=== PATIENT | male | born 1960 | race Caucasian/White ===

== ENCOUNTER → 2016-10-30 | Outpatient (REF) | payer OTHER ==
[~2016-10-30] MED LIST: ABIL5TAB5 PO; ASPI1TAB PO; HUMA100I5 SC; INSULADS SC; LISI10TA4 PO; METF1000 PO; TYLE325T5 PO
[2016-10-30 11:44] LABS: ALBUMIN 3.9 GM/DL (3.2-5.2); ALBUMIN/GLOBULIN RATIO 1.39 (1.00-1.93); ALKALINE PHOSPHATASE 59 U/L (45-117); ALT/SGPT 38 U/L (12-78); ANION GAP 9 MEQ/L (8-16); AST/SGOT 16 U/L (15-37); BILIRUBIN,TOTAL 0.8 MG/DL (0.2-1.0); BLOOD UREA NITROGEN 13 MG/DL (7-18); CALCIUM LEVEL 8.4 MG/DL (8.5-10.1); CARBON DIOXIDE LEVEL 31 MEQ/L (21-32); CHLORIDE LEVEL 103 MEQ/L (98-107); CHOLESTEROL LEVEL 101 MG/DL (<200); CREATININE FOR GFR 0.95 MG/DL (0.70-1.30); GLOMERULAR FILTRATION RATE > 60.0 (>56); GLUCOSE, FASTING 110 MG/DL (70-105); SODIUM LEVEL 143 MEQ/L (136-145); TOTAL PROTEIN 6.7 GM/DL (6.4-8.2); TRIGLYCERIDES LEVEL 104 MG/DL (<150)
== END ==
LOC: M SFHCPLAZ 08:00
PROVIDERS: ATTEND Nurse Practitioner Family
DX: E11.65 Type 2 diabetes mellitus with hyperglycemia (principal); E55.9 Vitamin D deficiency, unspecified

== ENCOUNTER → 2016-11-24 | Outpatient (REF) | payer OTHER | END | disposition home or self-care (01) | LOC: M SFHCPLAZ 09:32 | PROVIDERS: ATTEND Nurse Practitioner Family | DX: Z11.59 Encounter for screening for other viral diseases (principal) ==

== ENCOUNTER → 2017-02-27 | Outpatient (CLI) | payer OTHER ==
--- NOTE | 2017-02-27 10:13 | REP ---
Clinical: Pain. Technique: AP, lateral, bilateral oblique and sunrise views of the left knee. Findings: Moderate tricompartmental osteoarthritic degenerative changes are appreciated including cortical irregularities, early spurring, joint space narrowing, increased sclerosis to the tibial plateau. Congenital bipartite patella noted. No acute fracture or dislocation. No obvious effusion. Impression: Moderate tricompartmental osteoarthritic degenerative changes. Signed by Boogie Lance MD 02/27/2017 10:04 A
== END ==
LOC: M RAD 09:25
PROVIDERS: ATTEND Physician Assistant
DX: M17.12 Unilateral primary osteoarthritis, left knee (principal)

== ENCOUNTER → 2017-06-29 | Outpatient (CLI) | payer OTHER ==
[~2017-06-29] MED LIST changes: +ABIL1TAB11 PO; -ABIL5TAB5 PO; +ALLE10TA2 PO; +ARIP1TAB10 PO; +BASA100I SC; +DRIS50002 PO; +INSUHUMDS SC; +LEXA5TAB13 PO; +LIPI80TA PO; +LISI40TAB PO; -METF1000 PO; +METF10004 PO; +METO50TA7 PO
[2017-06-29 09:16] LABS: ALBUMIN 3.8 GM/DL (3.2-5.2); ALBUMIN/GLOBULIN RATIO 1.27 (1.00-1.93); ALKALINE PHOSPHATASE 55 U/L (45-117); ALT/SGPT 57 U/L (12-78); ANION GAP 9 MEQ/L (8-16); AST/SGOT 21 U/L (15-37); BILIRUBIN,TOTAL 0.7 MG/DL (0.2-1.0); BLOOD UREA NITROGEN 16 MG/DL (7-18); CALCIUM LEVEL 8.6 MG/DL (8.5-10.1); CARBON DIOXIDE LEVEL 29 MEQ/L (21-32); CHLORIDE LEVEL 104 MEQ/L (98-107); CHOLESTEROL LEVEL 138 MG/DL (<200); CREATININE FOR GFR 1.14 MG/DL (0.70-1.30); FREE T4 0.99 NG/DL (0.76-1.46); GLOMERULAR FILTRATION RATE > 60.0 (>56); GLUCOSE, FASTING 198 MG/DL (70-105); POTASSIUM SERUM 4.4 MEQ/L (3.5-5.1); SODIUM LEVEL 142 MEQ/L (136-145); TOTAL PROTEIN 6.8 GM/DL (6.4-8.2); TRIGLYCERIDES LEVEL 113 MG/DL (<150)
== END ==
LOC: M LAB 08:06
PROVIDERS: ATTEND Nurse Practitioner Family
DX: E11.65 Type 2 diabetes mellitus with hyperglycemia (principal)

== ENCOUNTER 2017-08-10 20:53 | Emergency (ER) | payer OTHER ==
[~2017-08-10] VITALS: Ht 170.2 cm; Wt 122.7 kg
[~2017-08-10 20:53] MED LIST changes: -ALLE10TA2 PO; -ARIP1TAB10 PO; -BASA100I SC; -DRIS50002 PO; -INSUHUMDS SC; -LEXA5TAB13 PO; -LIPI80TA PO; -LISI40TAB PO; -METO50TA7 PO
[2017-08-10 21:32] LABS: MEAN CORPUSCULAR HGB CONC 34.9 g/dl (32.0-36.5); PLATELET COUNT, AUTOMATED 264 10^3/uL (150-450); RED CELL DISTRIBUTION WIDTH 12.7 % (11.5-14.5); WHITE BLOOD COUNT 6.5 10^3/uL (4.0-10.0)
[2017-08-10 22:09] LABS: ALBUMIN 3.9 GM/DL (3.2-5.2); ALBUMIN/GLOBULIN RATIO 1.39 (1.00-1.93); ALKALINE PHOSPHATASE 70 U/L (45-117); ALT/SGPT 51 U/L (12-78); ANION GAP 8 MEQ/L (8-16); AST/SGOT 22 U/L (7-37); BILIRUBIN,DIRECT 0.2 MG/DL (0.0-0.2); BILIRUBIN,TOTAL 0.7 MG/DL (0.2-1.0); BLOOD UREA NITROGEN 12 MG/DL (7-18); CALCIUM LEVEL 8.2 MG/DL (8.5-10.1); CARBON DIOXIDE LEVEL 28 MEQ/L (21-32); CHLORIDE LEVEL 104 MEQ/L (98-107); GLOMERULAR FILTRATION RATE > 60.0 (>56); GLUCOSE, FASTING 278 MG/DL (70-105); POTASSIUM SERUM 3.8 MEQ/L (3.5-5.1); SODIUM LEVEL 140 MEQ/L (136-145); TOTAL PROTEIN 6.7 GM/DL (6.4-8.2)
[2017-08-10 23:08] LABS: METHADONE URINE NEGATIVE (NEGATIVE)
[2017-08-10] MEDS ORDERED: INSUHUMDS SC (23:09)
[2017-08-10] MEDS ORDERED: METO50TA7 PO (23:09)
[2017-08-10] MEDS ORDERED: ALLE10TA2 PO (23:09)
[2017-08-10] MEDS ORDERED: BASA100I SC ×2 (23:09)
[2017-08-10] MEDS ORDERED: ARIP1TAB10 PO (23:09)
[2017-08-10] MEDS ORDERED: LISI40TAB PO (23:09)
[2017-08-10] MEDS ORDERED: LIPI80TA PO (23:09)
[2017-08-10] MEDS ORDERED: LEXA5TAB13 PO (23:09)
[2017-08-10] MEDS ORDERED: DRIS50002 PO (23:09)
[2017-08-11] MEDS ORDERED: ARIPiprazole 10 MG TAB PO ONE (01:00)
[2017-08-11] MEDS ORDERED: LISINOPRIL 40 MG TAB PO ONE (01:00)
[2017-08-11] MEDS ORDERED: METOPROLOL TART 50 MG TAB PO ONE (01:00)
[2017-08-11] MEDS ORDERED: ATORVASTATIN 20 MG TAB PO ONE (01:00)
[2017-08-11] MEDS ORDERED: HumaLOG INSULIN (NovoLOG) PER UNIT SC STA (01:03)
[2017-08-11 01:13] VITALS: BP 185/101
[2017-08-11 03:43] VITALS: BP 158/90
--- NOTE | 2017-08-11 04:37 | ECGEPIP ---
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
== END 2017-08-11 03:50 | disposition home or self-care (01) ==
LOC: M ED 20:53
DX: F29 Unspecified psychosis not due to a substance or known physiological condition (principal); F25.9 Schizoaffective disorder, unspecified; E11.9 Type 2 diabetes mellitus without complications; I10 Essential (primary) hypertension

== ENCOUNTER 2017-10-15 08:02 | Emergency (ER) | payer OTHER ==
[2017-10-15 08:57] LABS: BASO % 0.5 % (0.0-1.0); EOS # 0.3 10^3/uL (0.0-0.50); HEMATOCRIT 44.5 % (42.0-52.0); HEMOGLOBIN 15.1 g/dl (14.0-18.0); IMMATURE GRANULOCYTE % 0.5 % (0-0); LYMPH # 1.4 10^3/uL (1.5-4.5); LYMPH % 23.9 % (24.0-44.0); MEAN CORPUSCULAR HEMOGLOBIN 28.6 pg (27.0-33.0); MEAN CORPUSCULAR HGB CONC 33.9 g/dl (32.0-36.5); MEAN CORPUSCULAR VOLUME 84.3 fl (80.0-96.0); MONO # 1.1 10^3/uL (0.0-0.8); MONO % 18.6 % (0.0-5.0); NEUTROPHILS # 2.9 10^3/uL (1.8-7.7); NEUTROPHILS % 50.5 % (36.0-66.0); PLATELET COUNT, AUTOMATED 238 10^3/uL (150-450); RED BLOOD COUNT 5.28 10^6/uL (4.30-6.10); WHITE BLOOD COUNT 5.7 10^3/uL (4.0-10.0)
[2017-10-15 09:14] LABS: ANION GAP 6 MEQ/L (8-16); BLOOD UREA NITROGEN 14 MG/DL (7-18); CALCIUM LEVEL 8.7 MG/DL (8.5-10.1); CARBON DIOXIDE LEVEL 31 MEQ/L (21-32); CHLORIDE LEVEL 102 MEQ/L (98-107); CREATININE FOR GFR 1.07 MG/DL (0.70-1.30); GLOMERULAR FILTRATION RATE > 60.0 (>56); GLUCOSE, FASTING 216 MG/DL (70-105); NT-PRO BNP 18 PG/ML (<125); POTASSIUM SERUM 3.9 MEQ/L (3.5-5.1); SODIUM LEVEL 139 MEQ/L (136-145)
== END 2017-10-15 11:39 | disposition home or self-care (01) ==
LOC: M ED 08:02
DX: J06.9 Acute upper respiratory infection, unspecified (principal); I10 Essential (primary) hypertension; R60.0 Localized edema; E11.9 Type 2 diabetes mellitus without complications; J44.9 Chronic obstructive pulmonary disease, unspecified; J45.909 Unspecified asthma, uncomplicated; E78.5 Hyperlipidemia, unspecified; G47.33 Obstructive sleep apnea (adult) (pediatric); G40.909 Epilepsy, unspecified, not intractable, without status epilepticus; G89.29 Other chronic pain; M54.9 Dorsalgia, unspecified; Z79.899 Other long term (current) drug therapy; Z79.82 Long term (current) use of aspirin; Z79.4 Long term (current) use of insulin
CPT/HCPCS: 71046

== ENCOUNTER → 2018-01-02 | Outpatient (CLI) | payer OTHER ==
[~2018-01-02] MED LIST changes: -ABIL1TAB11 PO; -ASPI1TAB PO; -HUMA100I5 SC; -INSULADS SC; +ISOVUE-370 76% 100ML VIAL (Q9967) As Ordered; -LISI10TA4 PO; -METF10004 PO; -TYLE325T5 PO
== END ==
LOC: M RAD 10:49
DX: J34.89 Other specified disorders of nose and nasal sinuses (principal); K11.5 Sialolithiasis; R60.0 Localized edema
CPT/HCPCS: Q9967

== ENCOUNTER → 2018-01-18 | Outpatient (REF) | payer OTHER ==
[2018-01-18 12:34] LABS: ALBUMIN/GLOBULIN RATIO 1.29 (1.00-1.93); ALKALINE PHOSPHATASE 69 U/L (45-117); ALT/SGPT 42 U/L (12-78); ANION GAP 8 MEQ/L (8-16); AST/SGOT 18 U/L (7-37); BILIRUBIN,TOTAL 0.6 MG/DL (0.2-1.0); BLOOD UREA NITROGEN 13 MG/DL (7-18); CALCIUM LEVEL 8.8 MG/DL (8.5-10.1); CARBON DIOXIDE LEVEL 29 MEQ/L (21-32); CHLORIDE LEVEL 103 MEQ/L (98-107); CREATININE FOR GFR 1.02 MG/DL (0.70-1.30); GLOMERULAR FILTRATION RATE > 60.0 (>56); GLUCOSE, FASTING 210 MG/DL (70-100); POTASSIUM SERUM 4.1 MEQ/L (3.5-5.1); SODIUM LEVEL 140 MEQ/L (136-145); TOTAL PROTEIN 7.1 GM/DL (6.4-8.2)
[2018-01-18 12:38] LABS: TOTAL 25(OH) VITAMIN D 44.8 NG/ML (30.0-100.0)
[2018-01-18 12:43] LABS: ESTIMATED AVERAGE GLUCOSE 229 MG/DL (60-110); HEMOGLOBIN A1c 9.6 %
[2018-01-18 12:44] LABS: MALB URINE SIEMENS 18.5 MG/L; MAU/CREAT RATIO 13.8 MCG/MG (0.0-30.0)
== END ==
LOC: M SFHCPLAZ 08:32
DX: E11.65 Type 2 diabetes mellitus with hyperglycemia (principal); E55.9 Vitamin D deficiency, unspecified

== ENCOUNTER → 2018-04-03 | Outpatient (REF) | payer OTHER ==
[2018-04-03 16:20] LABS: ANION GAP 4 MEQ/L (8-16); BLOOD UREA NITROGEN 12 MG/DL (7-18); CALCIUM LEVEL 8.8 MG/DL (8.5-10.1); CARBON DIOXIDE LEVEL 35 MEQ/L (21-32); CHLORIDE LEVEL 104 MEQ/L (98-107); CREATININE FOR GFR 1.06 MG/DL (0.70-1.30); GLOMERULAR FILTRATION RATE > 60.0 (>56); GLUCOSE, FASTING 120 MG/DL (70-100); SODIUM LEVEL 143 MEQ/L (136-145)
[2018-04-03 16:52] LABS: ESTIMATED AVERAGE GLUCOSE 203 MG/DL (60-110); HEMOGLOBIN A1c 8.7 %
== END ==
LOC: M SFHCPLAZ 12:44
DX: E11.65 Type 2 diabetes mellitus with hyperglycemia (principal)

== ENCOUNTER 2018-07-26 12:36 | Emergency (ER) | payer OTHER ==
[2018-07-26] MEDS: BACLOFEN 10 MG TAB PO (13:19)
[2018-07-26] MEDS: KETOROLAC TROMETHAMINE 10 MG TAB PO (13:20)
== END 2018-07-26 13:29 | disposition home or self-care (01) ==
LOC: M ED 12:36
DX: S16.1XXA Strain of muscle, fascia and tendon at neck level, initial encounter (principal); X58.XXXA Exposure to other specified factors, initial encounter; Y92.89 Other specified places as the place of occurrence of the external cause; M54.9 Dorsalgia, unspecified; G89.29 Other chronic pain; E11.9 Type 2 diabetes mellitus without complications; I10 Essential (primary) hypertension; E78.5 Hyperlipidemia, unspecified; J45.909 Unspecified asthma, uncomplicated; G47.33 Obstructive sleep apnea (adult) (pediatric); F41.9 Anxiety disorder, unspecified; F32.9 Major depressive disorder, single episode, unspecified; F20.9 Schizophrenia, unspecified; G40.909 Epilepsy, unspecified, not intractable, without status epilepticus; Z79.82 Long term (current) use of aspirin; Z79.899 Other long term (current) drug therapy; Z79.84 Long term (current) use of oral hypoglycemic drugs
CPT/HCPCS: 99282

== ENCOUNTER → 2018-08-05 | Outpatient (REF) | payer OTHER ==
[2018-08-05 11:41] LABS: ESTIMATED AVERAGE GLUCOSE 157 MG/DL (60-110); HEMOGLOBIN A1c 7.1 %
[2018-08-05 12:03] LABS: ALBUMIN 4.2 GM/DL (3.2-5.2); ALKALINE PHOSPHATASE 55 U/L (45-117); ALT/SGPT 52 U/L (12-78); ANION GAP 7 MEQ/L (8-16); AST/SGOT 24 U/L (7-37); BLOOD UREA NITROGEN 15 MG/DL (7-18); CARBON DIOXIDE LEVEL 32 MEQ/L (21-32); CHLORIDE LEVEL 101 MEQ/L (98-107); CREATININE FOR GFR 1.23 MG/DL (0.70-1.30); GLOMERULAR FILTRATION RATE > 60.0 (>56); GLUCOSE, FASTING 105 MG/DL (70-100); POTASSIUM SERUM 3.9 MEQ/L (3.5-5.1); SODIUM LEVEL 140 MEQ/L (136-145)
== END ==
LOC: M SFHCPLAZ 08:01
DX: E11.65 Type 2 diabetes mellitus with hyperglycemia (principal); E55.9 Vitamin D deficiency, unspecified
CPT/HCPCS: 80053

== ENCOUNTER → 2018-09-12 | Outpatient (REF) | payer OTHER ==
[2018-09-12 18:21] LABS: ANION GAP 8 MEQ/L (8-16); BLOOD UREA NITROGEN 11 MG/DL (7-18); CALCIUM LEVEL 8.9 MG/DL (8.5-10.1); CARBON DIOXIDE LEVEL 31 MEQ/L (21-32); CHLORIDE LEVEL 105 MEQ/L (98-107); CREATININE FOR GFR 1.35 MG/DL (0.70-1.30); GLOMERULAR FILTRATION RATE 57.6 (>56); GLUCOSE, FASTING 74 MG/DL (70-100); SODIUM LEVEL 144 MEQ/L (136-145)
== END ==
LOC: M SFHCPLAZ 14:45
DX: I10 Essential (primary) hypertension (principal)
CPT/HCPCS: 80048

== ENCOUNTER → 2018-11-13 | Outpatient (REF) | payer OTHER ==
[~2018-11-13] MED LIST changes: +ABIL1TAB11 PO; +ALLE10TA2 PO; +ARIP1TAB10 PO; +ASPI1TAB PO; +BACL10TA2 PO; +BASA100I SC; +CHLO25TA GT; +DRIS50003 PO; +GUAI1TAB PO; +HUMA100I5 SC; +INSUHUMDS SC; +INSULADS SC; -ISOVUE-370 76% 100ML VIAL (Q9967) As Ordered; +LEXA5TAB13 PO; +LIPI80TA PO; +LISI10TA4 PO; +LISI40TA PO; +METF10004 PO; +METO50TA7 PO; +NAPR-50 PO; +TYLE325T5 PO
[2018-11-13 10:14] LABS: ALBUMIN 4.2 GM/DL (3.2-5.2); ALT/SGPT 37 U/L (12-78); BILIRUBIN,TOTAL 0.7 MG/DL (0.2-1.0); BLOOD UREA NITROGEN 11 MG/DL (7-18); CALCIUM LEVEL 8.6 MG/DL (8.5-10.1); CARBON DIOXIDE LEVEL 33 MEQ/L (21-32); CHLORIDE LEVEL 100 MEQ/L (98-107); CREATININE FOR GFR 1.16 MG/DL (0.70-1.30); GLOMERULAR FILTRATION RATE > 60.0 (>56); GLUCOSE, FASTING 108 MG/DL (70-100); POTASSIUM SERUM 4.2 MEQ/L (3.5-5.1); SODIUM LEVEL 139 MEQ/L (136-145); TOTAL PROTEIN 7.1 GM/DL (6.4-8.2)
[2018-11-13 10:41] LABS: TOTAL 25(OH) VITAMIN D 34.4 NG/ML (30.0-100.0)
[2018-11-13 11:17] LABS: HEMOGLOBIN A1c 6.6 %
== END ==
LOC: M SFHCPLAZ 08:10
PROVIDERS: ATTEND Nurse Practitioner Family
DX: E11.65 Type 2 diabetes mellitus with hyperglycemia (principal); E55.9 Vitamin D deficiency, unspecified

== ENCOUNTER → 2018-12-12 | Outpatient (RCR) | payer OTHER | LOC: M PT 11-26 07:56 | PROVIDERS: ATTEND Nurse Practitioner Family | DX: M54.9 Dorsalgia, unspecified (principal) ==

== ENCOUNTER 2019-01-02 08:37 | Outpatient (RCR) | payer OTHER | END 2019-01-12 | LOC: M PT 08:37 | PROVIDERS: ATTEND Nurse Practitioner Family | DX: M54.9 Dorsalgia, unspecified (principal) ==

== ENCOUNTER → 2019-02-19 | Outpatient (REF) | payer OTHER ==
[~2019-02-19] MED LIST changes: -ALLE10TA2 PO; -ASPI1TAB PO; +ASPI81TA26 PO; +LORA-753 PO; -NAPR-50 PO; +NAPR-837 PO
[2019-02-19 10:51] LABS: ALT/SGPT 52 U/L (12-78); BILIRUBIN,TOTAL 0.7 MG/DL (0.2-1.0); BLOOD UREA NITROGEN 20 MG/DL (7-18); CALCIUM LEVEL 8.3 MG/DL (8.5-10.1); CARBON DIOXIDE LEVEL 28 MEQ/L (21-32); CHLORIDE LEVEL 105 MEQ/L (98-107); CHOLESTEROL LEVEL 121 MG/DL (<200); CHOLESTEROL RISK RATIO 3.457 (<5); CREATININE FOR GFR 1.12 MG/DL (0.70-1.30); GLOMERULAR FILTRATION RATE > 60.0 (>56); GLUCOSE, FASTING 137 MG/DL (70-100); HDL CHOLESTEROL 35 MG/DL (>40); LDL CHOLESTEROL 60 MG/DL (<100); NON-HDL-C 86 MG/DL; POTASSIUM SERUM 3.9 MEQ/L (3.5-5.1); SODIUM LEVEL 140 MEQ/L (136-145); TOTAL PROTEIN 6.5 GM/DL (6.4-8.2); TRIGLYCERIDES LEVEL 132 MG/DL (<150)
[2019-02-19 10:59] LABS: TOTAL 25(OH) VITAMIN D 24.9 NG/ML (30.0-100.0)
[2019-02-19 11:34] LABS: CREATININE, URINE 80.8 MG/DL; MALB URINE SIEMENS 23.3 MG/L; MAU/CREAT RATIO 28.8 MCG/MG (0.0-30.0)
[2019-02-19 11:44] LABS: HEMOGLOBIN A1c 7.3 %
== END ==
LOC: M SFHCPLAZ 08:05
PROVIDERS: ATTEND Nurse Practitioner Family
DX: E11.9 Type 2 diabetes mellitus without complications (principal); I10 Essential (primary) hypertension; E55.9 Vitamin D deficiency, unspecified

== ENCOUNTER 2019-04-12 10:30 | Emergency (ER) | payer OTHER ==
[~2019-04-12] VITALS: Ht 170.2 cm; Wt 115.9 kg
[2019-04-12] MEDS ORDERED: CHLO125TA (10:38)
[2019-04-12] MEDS ORDERED: ABIL1INJ2 (10:38)
[2019-04-12] MEDS ORDERED: IPRATROPIUM 0.5MG/ALBUTEROL 2.5MG INH SOL UD 3ML (DUONEB)(J7620) NEB ONE (11:15)
--- NOTE | 2019-04-12 11:29 | ECGEPIP ---
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
[2019-04-12 11:49] LABS: BASO % 0.4 % (0.0-1.0); EOS # 0.5 10^3/uL (0.0-0.50); EOS % 6.4 % (0.0-3.0); HEMATOCRIT 42.6 % (42.0-52.0); HEMOGLOBIN 14.7 g/dl (13.5-17.5); LYMPH % 24.5 % (24.0-44.0); MEAN CORPUSCULAR HEMOGLOBIN 29.8 pg (27.0-33.0); MEAN CORPUSCULAR HGB CONC 34.5 g/dl (32.0-36.5); MEAN CORPUSCULAR VOLUME 86.4 fl (80.0-96.0); MONO # 0.9 10^3/uL (0.0-0.8); MONO % 11.3 % (0.0-5.0); NEUTROPHILS # 4.6 10^3/uL (1.8-7.7); NEUTROPHILS % 57.3 % (36.0-66.0); PLATELET COUNT, AUTOMATED 248 10^3/uL (150-450); RED BLOOD COUNT 4.93 10^6/uL (4.30-6.10)
[2019-04-12 12:19] LABS: ALBUMIN 3.9 GM/DL (3.2-5.2); ALT/SGPT 53 U/L (12-78); BILIRUBIN,DIRECT 0.2 MG/DL (0.0-0.2); BILIRUBIN,TOTAL 0.7 MG/DL (0.2-1.0); BLOOD UREA NITROGEN 16 MG/DL (7-18); CALCIUM LEVEL 8.5 MG/DL (8.5-10.1); CARBON DIOXIDE LEVEL 28 MEQ/L (21-32); CHLORIDE LEVEL 103 MEQ/L (98-107); CK-MB VALUE MASS 1.8 NG/ML (<3.6); CPK CREATINE PHOSPHOKINASE 142 U/L (39-308); GLOMERULAR FILTRATION RATE > 60.0 (>56); GLUCOSE, FASTING 172 MG/DL (70-100); MB/CK RELATIVE INDEX 1.27 (< OR =4); NT-PRO BNP 32 PG/ML (<125); POTASSIUM SERUM 3.8 MEQ/L (3.5-5.1); SODIUM LEVEL 140 MEQ/L (136-145); TOTAL PROTEIN 6.8 GM/DL (6.4-8.2); TROPONIN I < 0.02 NG/ML (< 0.10)
[2019-04-12] MEDS ORDERED: PRED20TA PO (12:34)
[2019-04-12] MEDS ORDERED: VENTAER INH (12:34)
[2019-04-12] MEDS ORDERED: predniSONE 20 MG TAB PO ONE (12:45)
[2019-04-12 12:47] VITALS: BP 134/81
--- NOTE | 2019-04-12 15:02 | REP ---
Clinical: Cough and dyspnea. Comparison: 10/15/2017. Technique: PA and lateral. Findings: The mediastinum and cardiac silhouette are normal. The lung amaya are clear and without acute consolidation, effusion, or pneumothorax. The skeletal structures are intact and normal. Impression: 1. No acute cardiopulmonary process. Electronically Signed by Boogie Lance MD 04/12/2019 11:24 A
== END 2019-04-12 12:54 | disposition home or self-care (01) ==
LOC: M ED 10:30
DX: J44.9 Chronic obstructive pulmonary disease, unspecified (principal); J40 Bronchitis, not specified as acute or chronic; E11.9 Type 2 diabetes mellitus without complications; I10 Essential (primary) hypertension; F20.0 Paranoid schizophrenia; Z79.899 Other long term (current) drug therapy; Z79.4 Long term (current) use of insulin; Z79.82 Long term (current) use of aspirin

== ENCOUNTER → 2019-05-22 | Outpatient (REF) | payer OTHER ==
[~2019-05-22] MED LIST changes: +ABIL1INJ2; +CHLO125TA; +PRED20TA PO; +VENTAER INH
[2019-05-22 10:54] LABS: HEMOGLOBIN A1c 8.1 %
[2019-05-22 11:09] LABS: ALBUMIN 4.2 GM/DL (3.2-5.2); BILIRUBIN,TOTAL 0.9 MG/DL (0.2-1.0); CALCIUM LEVEL 9.4 MG/DL (8.5-10.1); CREATININE FOR GFR 1.52 MG/DL (0.70-1.30); GLOMERULAR FILTRATION RATE 50.2 (>56); POTASSIUM SERUM 3.8 MEQ/L (3.5-5.1); TOTAL PROTEIN 7.5 GM/DL (6.4-8.2)
[2019-05-22 11:12] LABS: TOTAL 25(OH) VITAMIN D 32.7 NG/ML (30.0-100.0)
== END ==
LOC: M SFHCPLAZ 08:09
PROVIDERS: ATTEND Nurse Practitioner Family
DX: I10 Essential (primary) hypertension (principal); E11.9 Type 2 diabetes mellitus without complications; E55.9 Vitamin D deficiency, unspecified

== ENCOUNTER → 2019-05-28 | Outpatient (CLI) | payer OTHER ==
[~2019-05-28] MED LIST changes: -ABIL1INJ2; +ABIL1INJ2 IM; +CBD OIL PO; -CHLO125TA; +CHLO125TA PO; +MUCI1TAB16 PO; +NAPR500T6 PO
--- NOTE | 2019-05-28 15:26 | REP ---
CT of the neck without contrast Clinical indication: Sialadenitis, cellulitis of the face. Comparison: CT maxillofacial bones of 01/02/2018. Technique: Axial imaging of the neck was performed without contrast. Coronal and sagittal reformatted images were reviewed. Findings: There is asymmetric enlargement of the right submandibular gland containing a focal low attenuation region within the gland which measures 2.7 x 2.6 cm and raises suspicion for abscess. There is no sialolith within the right submandibular gland. There is a small wedge-shaped defect within the mandible adjacent to the low attenuation submandibular lesion, raising suspicion for to odontogenic origin of inflammation. There is stranding of the periglandular fat and prominence of surrounding lymph nodes. There is thickening of the platysma and soft tissue stranding of the subcutaneous fat of the right submandibular face consistent with cellulitis. There is a tiny punctate calcification within the left submandibular gland which is unchanged. The left submandibular gland is otherwise normal. Within the limitation of a noncontrast enhanced CT examination, the remainder of the neck is within normal limits. The upper airway is patent. The remainder of the salivary glands and thyroid are unremarkable. There is no cervical lymphadenopathy. The lung apices are clear. There is no suspicious focal osseous lesion. There is evidence of periodontal disease. There is mucosal thickening within both maxillary sinuses. Note is made of cavernous carotid calcification. Impression: 1. Asymmetric enlargement the right submandibular gland with focal hypoattenuating lesion within the gland suspicious for abscess. No right submandibular gland sialolith. In the setting of periodontal disease, this raises suspicion for odontogenic origin of inflammation. There is overlying inflammation in the subcutaneous soft tissues consistent with cellulitis. 2. Tiny punctate calcification within the left submandibular gland is unchanged. 3. Mucosal thickening of the maxillary sinuses. Electronically Signed by Ramirez Desir MD 05/28/2019 03:16 P
== END ==
LOC: M RAD 13:16
PROVIDERS: ATTEND Nurse Practitioner Family
DX: K11.20 Sialoadenitis, unspecified (principal); L03.211 Cellulitis of face

== ENCOUNTER 2019-06-03 14:44 | Inpatient (IN) | payer OTHER ==
[~2019-06-03 14:44] MED LIST changes: -CBD OIL PO; -CLIN150C14 PO; -LOPR1TAB6 PO; -MUCI1TAB16 PO; -NAPR500T6 PO
[2019-06-03] MEDS ORDERED: GLUCAGON FOR INJ 1 MG VIAL (J1610) SC PRN (15:30)
[2019-06-03] MEDS ORDERED: GLUCOSE 4 GM CHEW TABLET PO PRN (15:30)
[2019-06-03] MEDS ORDERED: DEXTROSE 50% 50 ML SYRINGE IV PRN (15:30)
[2019-06-03 15:45] VITALS: BP 139/80
[2019-06-03] MEDS ORDERED: ALBUTEROL 90 MCG/ACT 8GM HFA INHALER INH PRN (16:30)
[2019-06-03] MEDS ORDERED: VENTAER INH (16:54)
[2019-06-03] MEDS ORDERED: NAPR500T6 PO ×2 (16:54)
[2019-06-03] MEDS ORDERED: CBD OIL PO (16:54)
[2019-06-03] MEDS ORDERED: MUCI1TAB16 PO (16:54)
[2019-06-03 17:04] LABS: ALBUMIN 3.2 GM/DL (3.2-5.2); BILIRUBIN,TOTAL 0.4 MG/DL (0.2-1.0); CREATININE FOR GFR 1.31 MG/DL (0.70-1.30); GLOMERULAR FILTRATION RATE 59.6 (>56); POTASSIUM SERUM 3.7 MEQ/L (3.5-5.1); TOTAL PROTEIN 6.8 GM/DL (6.4-8.2)
[2019-06-03 18:25] LABS: BASO % 0.4 % (0.0-1.0); EOS # 0.3 10^3/uL (0.0-0.50); EOS % 3.3 % (0.0-3.0); HEMATOCRIT 37.3 % (42.0-52.0); LYMPH # 2.1 10^3/uL (1.5-4.5); LYMPH % 25.7 % (24.0-44.0); MEAN CORPUSCULAR HEMOGLOBIN 28.8 pg (27.0-33.0); MEAN CORPUSCULAR HGB CONC 34.9 g/dl (32.0-36.5); MEAN CORPUSCULAR VOLUME 82.7 fl (80.0-96.0); MONO # 0.9 10^3/uL (0.0-0.8); MONO % 11.3 % (0.0-5.0); NEUTROPHILS # 4.8 10^3/uL (1.8-7.7); NEUTROPHILS % 58.7 % (36.0-66.0); PLATELET COUNT, AUTOMATED 343 10^3/uL (150-450); RED BLOOD COUNT 4.51 10^6/uL (4.30-6.10); WHITE BLOOD COUNT 8.1 10^3/uL (4.0-10.0)
[2019-06-03] MEDS: CLINDAMYCIN 600 MG in APPROPRIATE DILUENT 1 EA IV SCH ×2 (18:39→23:42)
[2019-06-03] MEDS: HumaLOG INSULIN (NovoLOG) PER UNIT SC SCH ×2 (18:39→21:17)
[2019-06-03] MEDS: ATORVASTATIN 20 MG TAB PO SCH (21:16)
[2019-06-03] MEDS: METOPROLOL TART 50 MG TAB PO SCH (21:16)
[2019-06-03] MEDS: LEVEMIR (INSULIN DETEMIR) 1 UNITS/0.01ML SC SCH (21:17)
[2019-06-03 22:00] VITALS: BP 141/83
--- NOTE | 2019-06-04 00:31 | HPE ---
DATE OF ADMISSION: 06/03/2019 PRIMARY CARE PROVIDER: Dr. Tonya Roe ATTENDING PHYSICIAN: Dr. Adarsh Dove (hospitalist) PRINCIPAL DIAGNOSIS: Right submandibular abscess. HISTORY: Ej Walter is being admitted directly from the ears, nose, and throat (ENT) office. Dr. Calderon called me today and wanted to admit him for intravenous (IV) clindamycin. He had an abscess drained in the office today. He was seen yesterday at the [place] office. Had a right submandibular abscess treated with Keflex. Was referred to ENT, who per that note wanted the patient referred to oral surgery. Oral surgery saw him and felt it was not a dental problem and referred back to ENT. Dr. Calderon drained the abscess. PAST MEDICAL HISTORY: 1. Type 2 diabetes, reasonably good control recently. Last hemoglobin A1c was 8.1%. Earlier in the year it was 6.6. A year ago it was as high as 10.6, but he has gotten good control in the last year. 2. Hypertensive heart disease. 3. Obstructive sleep apnea (MCKENZIE), for which he does not wear continuous positive airway pressure (CPAP) and cancelled followup with pulmonary. 4. History of paranoid schizophrenia, for which he follows with [facility]/Dr. Gibbons. 5. Degenerative disc disease, lumbosacral spine. 6. Depression. 7. Vitamin D deficiency. SURGICAL HISTORY: 1. Left knee in 1982. 2. Had a biopsy done on his left calf in 1994. 3. Tonsillectomy as a child. He has refused colonoscopy. FAMILY HISTORY: Father with dementia, hypertension, diabetes, stroke. Mother of stomach cancer. SOCIAL HISTORY: Nonsmoker but has had a lot of second-hand smoke exposure. No alcohol. He is disabled. MEDICATIONS: - ketoconazole shampoo to scalp and sheth three times a week - atorvastatin 40 mg daily - aspirin 81 mg daily - Claritin 10 mg daily - lisinopril 40 mg daily - metformin 1000 mg twice a day - albuterol inhaler - chlorthalidone 25 mg half a tablet (12.5) daily - metoprolol tartrate 50 mg twice a day - Victoza 1.8 mg daily - Humalog on a sliding scale - Basaglar 58 units twice daily - Drisdol 50,000 units twice a week ALLERGIES: None to any medicines. HOSPITALIZATIONS: Sciatica in 10/2014. [facility] 09/10. REVIEW OF SYSTEMS: No fevers, chills, shortness of breath, stridor, difficulty swallowing. PHYSICAL EXAMINATION: VITAL SIGNS: Per flow sheet. GENERAL APPEARANCE: Alert, conversant. No distress. Right side of the face is a little swollen. He has quite an extensive sheth growth, so it is difficult to visualize the area. It is tender to palpate, firm, some induration. He says it feels better since the abscess was drained. NECK: Supple. LUNGS: Clear. HEART: Regular without murmur. ABDOMEN: Obese, nontender. No masses. Trace peripheral edema. Normal strength in the arms and legs. IMPRESSION: Submental abscess. PLAN: 1. Will admit the patient to hospitalist service. Clindamycin 600 mg IV every [address] Calderon and I spoke. He is aware of the consultation. 2. Diabetes. We will reduce his basal insulin in the face of an enforced diabetic diet. Sliding-scale insulin with coverage. 3. Hyperlipidemia. Continue atorvastatin 40 mg daily. 4. Hypertensive heart disease. Continue chlorthalidone 12.5 mg daily, metoprolol 50 mg twice a day, and lisinopril 40 mg daily. Daily lab work has been ordered to follow renal function. 5. Vitamin D deficiency. He can restart his Drisdol after discharge. Hospitalist group will be covering him while in the hospital.
[2019-06-04 06:00] VITALS: BP 134/80
[2019-06-04 06:26] LABS: HEMATOCRIT 35.8 % (42.0-52.0); HEMOGLOBIN 12.3 g/dl (13.5-17.5); MEAN CORPUSCULAR HEMOGLOBIN 28.5 pg (27.0-33.0); MEAN CORPUSCULAR HGB CONC 34.4 g/dl (32.0-36.5); MEAN CORPUSCULAR VOLUME 82.9 fl (80.0-96.0); PLATELET COUNT, AUTOMATED 321 10^3/uL (150-450); RED BLOOD COUNT 4.32 10^6/uL (4.30-6.10)
[2019-06-04 06:54] LABS: BLOOD UREA NITROGEN 12 MG/DL (7-18); CALCIUM LEVEL 8.6 MG/DL (8.5-10.1); CARBON DIOXIDE LEVEL 31 MEQ/L (21-32); CHLORIDE LEVEL 104 MEQ/L (98-107); CREATININE FOR GFR 1.08 MG/DL (0.70-1.30); GLOMERULAR FILTRATION RATE > 60.0 (>56); GLUCOSE, FASTING 127 MG/DL (70-100); POTASSIUM SERUM 3.4 MEQ/L (3.5-5.1); SODIUM LEVEL 139 MEQ/L (136-145)
[2019-06-04] MEDS: ENOXAPARIN 40 MG/0.4 ML SYRINGE (J1650) SC SCH (09:05)
[2019-06-04] MEDS: CLINDAMYCIN 600 MG in APPROPRIATE DILUENT 1 EA IV SCH ×3 (09:06→23:47)
[2019-06-04] MEDS: LEVEMIR (INSULIN DETEMIR) 1 UNITS/0.01ML SC SCH ×2 (09:06→21:29)
[2019-06-04] MEDS: HumaLOG INSULIN (NovoLOG) PER UNIT SC SCH ×4 (09:07→21:00)
[2019-06-04] MEDS: LISINOPRIL 40 MG TAB PO SCH (09:07)
[2019-06-04] MEDS: CHLORTHALIDONE 12.5MG PER 1/2 TABLET PO SCH (09:07)
[2019-06-04] MEDS: METOPROLOL TART 50 MG TAB PO SCH ×2 (09:09→21:28)
[2019-06-04] MEDS ORDERED: POTASSIUM CHLORIDE 10% LIQ 20 MEQ/15 ML UDC PO ONE (10:00)
[2019-06-04 14:00] VITALS: BP 113/69
--- NOTE | 2019-06-04 15:56 | IPNPDOC ---
Text Note Date of Service The patient was seen on 06/04/19. NOTE Subjective: Patient seen and examined at bedside. no complaints/ Objective: General - NAD, sitting up in bed, well groomed Eyes - PERRLA, EOM intact Neck - No noticeable or palpable swelling, redness or rash around throat or on face Lymph Nodes - No lymphadenopathy Cardiovascular - RRR no m/r/g, no JVD, no carotid bruits Lungs - Clear to auscltation, no use of acessory muscles, no crackles or wheezes. Skin - No rashes, skin warm and dry, no erythematous areas Abdomen - Normal bowel sounds, abdomen soft and nontender Extremeties - No edema, cyanosis or clubbing Musculo Skeletal - 5/5 strength, normal range of motion, no swollen or erythematous joints. Neurological Alert and oriented x 3, CN 2-12 grossly intact A/P: # right submandibular abscess -s/p drainage -admitted for Clindamycin 600 mg IV every 8 -Consult ENT. Dr. Calderon aware of the consultation. f/u recs #Diabetes. -We will reduce his basal insulin in the face of an enforced diabetic diet -Sliding-scale insulin with coverage. # Hyperlipidemia. -Continue atorvastatin 40 mg daily. # Hypertensive heart disease. -Continue chlorthalidone 12.5 mg daily, [id number] mg twice a day, and lisinopril 40 mg daily. Dispo: pending ENT recs VS,Taiwo, I+O VS, Taiwo, I+O Laboratory Tests 06/03/19 16:20 Red Blood Count 4.51, Mean Corpuscular Volume 82.7, Mean Corpuscular Hemoglobin 28.8, Mean Corpuscular Hemoglobin Concent 34.9, Red Cell Distribution Width 12.8, Neutrophils (%) (Auto) 58.7, Lymphocytes (%) (Auto) 25.7, Monocytes (%) (Auto) 11.3 H, Eosinophils (%) (Auto) 3.3 H, Basophils (%) (Auto) 0.4, Neutrophils # (Auto) 4.8, Lymphocytes # (Auto) 2.1, Monocytes # (Auto) 0.9 H, Eosinophils # (Auto) 0.3, Basophils # (Auto) 0.0, Calcium Level 9.0, Aspartate Amino Transf (AST/SGOT) 13, Alanine Aminotransferase (ALT/SGPT) 32, Alkaline Phosphatase 69, Total Bilirubin 0.4, Total Protein 6.8, Albumin 3.2 06/04/19 05:53 Red Blood Count 4.32, Mean Corpuscular Volume 82.9, Mean Corpuscular Hemoglobin 28.5, Mean Corpuscular Hemoglobin Concent 34.4, Red Cell Distribution Width 12.7, Calcium Level 8.6 Vital Signs Date Time Temp Pulse Resp B/P (MAP) Pulse Ox O2 Delivery O2 Flow Rate FiO2 06/04/19 14:00 97.7 91 18 113/69 (84) 93 I&O- Last 24 Hours up to 6 AM 06/04/19 06:00 Intake Total 1450 ml Balance 1450 ml JONY STAUFFER MD Jun 04, 2019 15:56
[2019-06-04] MEDS: ATORVASTATIN 20 MG TAB PO SCH (21:28)
[2019-06-04 22:00] VITALS: BP 129/73
[2019-06-05 06:00] VITALS: BP 123/59
[2019-06-05 06:19] LABS: HEMATOCRIT 38.2 % (42.0-52.0); HEMOGLOBIN 13.4 g/dl (13.5-17.5); MEAN CORPUSCULAR HEMOGLOBIN 29.6 pg (27.0-33.0); MEAN CORPUSCULAR HGB CONC 35.1 g/dl (32.0-36.5); MEAN CORPUSCULAR VOLUME 84.5 fl (80.0-96.0); PLATELET COUNT, AUTOMATED 327 10^3/uL (150-450); RED BLOOD COUNT 4.52 10^6/uL (4.30-6.10); WHITE BLOOD COUNT 7.2 10^3/uL (4.0-10.0)
[2019-06-05 06:43] LABS: BLOOD UREA NITROGEN 10 MG/DL (7-18); CALCIUM LEVEL 8.6 MG/DL (8.5-10.1); CARBON DIOXIDE LEVEL 32 MEQ/L (21-32); CHLORIDE LEVEL 103 MEQ/L (98-107); CREATININE FOR GFR 1.13 MG/DL (0.70-1.30); GLOMERULAR FILTRATION RATE > 60.0 (>56); GLUCOSE, FASTING 80 MG/DL (70-100); POTASSIUM SERUM 3.5 MEQ/L (3.5-5.1); SODIUM LEVEL 141 MEQ/L (136-145)
[2019-06-05] MEDS: HumaLOG INSULIN (NovoLOG) PER UNIT SC SCH ×4 (07:30→21:00)
[2019-06-05] MEDS: CHLORTHALIDONE 12.5MG PER 1/2 TABLET PO SCH (09:13)
[2019-06-05] MEDS: CLINDAMYCIN 600 MG in APPROPRIATE DILUENT 1 EA IV SCH ×3 (09:13→23:29)
[2019-06-05] MEDS: LISINOPRIL 40 MG TAB PO SCH (09:14)
[2019-06-05] MEDS: ENOXAPARIN 40 MG/0.4 ML SYRINGE (J1650) SC SCH (09:14)
[2019-06-05] MEDS: METOPROLOL TART 50 MG TAB PO SCH ×2 (09:14→22:03)
[2019-06-05] MEDS: LEVEMIR (INSULIN DETEMIR) 1 UNITS/0.01ML SC SCH ×2 (09:15→22:05)
[2019-06-05 14:00] VITALS: BP 127/79
--- NOTE | 2019-06-05 17:53 | IPNPDOC ---
Text Note Date of Service The patient was seen on 06/05/19. NOTE SUBJECTIVE: Mr. Walter is in no distress and has no complaints. He is not in pain. Patient is status post drainage of dental abscess. OBJECTIVE: Please see vital signs below General: Well kempt, well-nourished. HENT: There is no erythema, swelling or fluctuance at the site of aspiration to the right side of his face, site is identified by [place]; there is no active drainage, no palpable or visible adenopathy. Cardiovascular: Regular rate and rhythm with a normal S1 and S2 Respiratory: Clear to auscultation with good air movement. Abdomen: Soft, nontender, nondistended. Patient has morbid central obesity. Extremities: No peripheral edema or lesions, pedal pulses are palpable. Neuro: No focal neuromotor or sensory deficits ASSESSMENT/PLAN: 1. This was a reported submandibular abscess. The circled site is actually in the region of the maxilla. The site is nontender and nondraining. The patient has been on IV clindamycin. He can be transitioned to oral clindamycin and follow up with ENT in the office. We anticipate doing this tomorrow morning as it was relayed Dr. Calderon wanted to see the patient prior to discharge. 2. Mfg-byleyga-hwdwumtma diabetes mellitus. The patient's basal insulin dosing was cut in half. Patient has had Accu-Cheks up to 300 or more. His original insulin dosing should be restored. VS,Fishbone, I+O VS, Fishbone, I+O Laboratory Tests 06/05/19 06:01 Red Blood Count 4.52, Mean Corpuscular Volume 84.5, Mean Corpuscular Hemoglobin 29.6, Mean Corpuscular Hemoglobin Concent 35.1, Red Cell Distribution Width 12.8, Calcium Level 8.6 Vital Signs Date Time Temp Pulse Resp B/P (MAP) Pulse Ox O2 Delivery O2 Flow Rate FiO2 06/05/19 14:00 98.5 74 18 127/79 (95) 93 I&O- Last 24 Hours up to 6 AM 06/05/19 06:00 Intake Total 3095 ml Balance 3095 ml TE PAYTON MD Jun 05, 2019 17:53
[2019-06-05 22:00] VITALS: BP 120/82
[2019-06-05] MEDS: ATORVASTATIN 20 MG TAB PO SCH (22:04)
[2019-06-06 06:00] VITALS: BP 119/70
[2019-06-06 06:40] LABS: HEMATOCRIT 39.6 % (42.0-52.0); HEMOGLOBIN 13.4 g/dl (13.5-17.5); MEAN CORPUSCULAR HEMOGLOBIN 28.8 pg (27.0-33.0); MEAN CORPUSCULAR HGB CONC 33.8 g/dl (32.0-36.5); PLATELET COUNT, AUTOMATED 343 10^3/uL (150-450); RED BLOOD COUNT 4.66 10^6/uL (4.30-6.10); WHITE BLOOD COUNT 6.3 10^3/uL (4.0-10.0)
[2019-06-06 07:02] LABS: BLOOD UREA NITROGEN 15 MG/DL (7-18); CALCIUM LEVEL 8.7 MG/DL (8.5-10.1); CARBON DIOXIDE LEVEL 33 MEQ/L (21-32); CHLORIDE LEVEL 103 MEQ/L (98-107); CREATININE FOR GFR 1.17 MG/DL (0.70-1.30); GLOMERULAR FILTRATION RATE > 60.0 (>56); GLUCOSE, FASTING 115 MG/DL (70-100); POTASSIUM SERUM 3.8 MEQ/L (3.5-5.1); SODIUM LEVEL 139 MEQ/L (136-145)
[2019-06-06] MEDS: HumaLOG INSULIN (NovoLOG) PER UNIT SC SCH (08:18)
[2019-06-06] MEDS: CLINDAMYCIN 600 MG in APPROPRIATE DILUENT 1 EA IV SCH (08:18)
[2019-06-06 08:19] VITALS: BP 118/75
[2019-06-06] MEDS: LEVEMIR (INSULIN DETEMIR) 1 UNITS/0.01ML SC SCH (08:19)
[2019-06-06] MEDS: METOPROLOL TART 50 MG TAB PO SCH (08:19)
[2019-06-06] MEDS: CHLORTHALIDONE 12.5MG PER 1/2 TABLET PO SCH (08:20)
[2019-06-06] MEDS: LISINOPRIL 40 MG TAB PO SCH (08:20)
[2019-06-06] MEDS: ENOXAPARIN 40 MG/0.4 ML SYRINGE (J1650) SC SCH (08:20)
[2019-06-06] MEDS ORDERED: LOPR1TAB6 PO (10:57)
[2019-06-06] MEDS ORDERED: CLIN150C14 PO (10:57)
--- NOTE | 2019-06-06 18:02 | DS.PDOC ---
Discharge Summary General Date of Admission Jun 03, 2019 at 15:32 Date of Discharge June 06, 2019 Primary Care Physician: KAY MANJARREZ NP MAN[facility] Specialist/Consultants Involve Dr. Calderon, ENT. Discharge Summary PROCEDURES PERFORMED DURING STAY: The patient underwent drainage of his right submandibular abscess prior to admission.. ADMITTING DIAGNOSES: 1. R. submandibular abscess. DISCHARGE DIAGNOSES: 1. Right submandibular abscess status post drainage, [id number] diabetes mellitus, essential hypertension, obstructive sleep apnea, paranoid schizophrenia, depression, degenerative disc disease. COMPLICATIONS/CHIEF COMPLAINT: Dental Infection. HISTORY OF PRESENT ILLNESS/HOSPITAL COURSE: This is a year-old male who had been seen by both ENT and oral surgery for concern of a right submandibular abscess. The patient ultimately he underwent drainage by the ENT service. He was then admitted to the hospital for IV antibiotics and monitoring. The patient was admitted to the [facility] floor. He was placed on IV clindamycin. The patient had minimal discomfort. He did not have any residual drainage. Subsequent cultures were negative for any discrete organism. He was then cleared to be discharged to home on oral antibiotic and outpatient follow-up.. DISCHARGE MEDICATIONS: Please see below. ALLERGIES: Please see below. PHYSICAL EXAMINATION ON DISCHARGE: VITAL SIGNS: Please see below. General: Well kempt, well-nourished. HENT: There is no erythema, swelling or fluctuance at the site of aspiration to the right side of his face, site is identified by [place]; there is no active drainage, no palpable or visible adenopathy. Cardiovascular: Regular rate and rhythm with a normal S1 and S2 Respiratory: Clear to auscultation with good air movement. Abdomen: Soft, nontender, nondistended. Patient has morbid central obesity. Extremities: No peripheral edema or lesions, pedal pulses are palpable. Neuro: No focal neuromotor or sensory deficits LABORATORY DATA: Please see below. IMAGING: PROGNOSIS: ACTIVITY: As tolerated. DIET: Regular as tolerated DISCHARGE PLAN: The patient is stable for discharge to home. He is being transitioned to oral clindamycin. He is to follow-up with Dr. Calderon in the office. Additionally, we recommend that he obtain follow-up with a dentist as there may be additional dental abscess. DISPOSITION: 01 Home, Self-Care. DISCHARGE INSTRUCTIONS: 1. . ITEMS TO FOLLOWUP ON ON OUTPATIENT: 1. . DISCHARGE CONDITION: Stable. TIME SPENT ON DISCHARGE: Greater than 35 minutes. Vital Signs/I&Os Vital Signs Date Time Temp Pulse Resp B/P (MAP) Pulse Ox O2 Delivery O2 Flow Rate FiO2 06/06/19 08:19 79 118/75 06/06/19 06:00 96.9 17 93 I&O- Last 24 Hours up to 6 AM 06/06/19 06:00 Intake Total 2590 ml Balance 2590 ml Laboratory Data Labs 24H Laboratory Tests 2 06/05/19 21:05: Bedside Glucose (Misc Panel) 213H 06/06/19 05:44: Nucleated Red Blood Cells % (auto) 0.0, Anion Gap 3L, Glomerular Filtration Rate > 60.0, Blood Urea Nitrogen 15, Creatinine 1.17, Sodium Level 139, Potassium Level 3.8, Chloride Level 103, Carbon Dioxide Level 33H, Calcium Level 8.7 CBC/BMP Laboratory Tests 06/06/19 05:44 Red Blood Count 4.66, Mean Corpuscular Volume 85.0, Mean Corpuscular Hemoglobin 28.8, Mean Corpuscular Hemoglobin Concent 33.8, Red Cell Distribution Width 12.8, Calcium Level 8.7 FSBS Laboratory Tests Test 06/05/19 21:05 Range/Units Bedside Glucose (Misc Panel) 213 70-105 MG/DL Discharge Medications Scheduled Aripiprazole (Abilify Maintena) 400 Mg Suser.syr, 400 MG IM Q4WKS, (Reported) Atorvastatin Calcium (Lipitor) 80 Mg Tab, 80 MG PO QHS, (Reported) Chlorthalidone (Chlorthalidone) 25 Mg Tablet, 12.5 MG PO DAILY, (Reported) Clindamycin Hcl (Clindamycin HCl) 150 Mg Capsule, 3 CAP PO TID Ergocalciferol (Vitamin D2) (Drisdol) 50,000 Unit Cap, 50,000 UNIT PO Q2WK, (Reported) TAKES ON THE AND Escitalopram Oxalate (Lexapro) 5 Mg Tab, 5 MG PO DAILY, (Reported) Guaifenesin (Mucinex) 1,200 Mg Tab.er.12h, 1,200 MG PO BID for COUGH, (Reported) Insulin Glargine,Hum.rec.anlog (Basaglar Kwikpen U-100) 100 Unit/Ml Inj, 58 UNIT SC QAM, (Reported) Insulin Glargine,Hum.rec.anlog (Basaglar Kwikpen U-100) 100 Unit/Ml Inj, 55 UNIT SC QHS, (Reported) Insulin Human Lispro (Humalog) 1 Units/0.01 Ml Inj, 1 DOSE SC AC, (Reported) PER SLIDING SCALE Lisinopril (Lisinopril) 40 Mg Tab, 40 MG PO DAILY, (Reported) Metformin HCl (Metformin HCl) 1,000 Mg Tab, 1,000 MG PO BID, (Reported) Metoprolol Tartrate (Lopressor) 50 Mg Tablet, 50 MG PO BID Scheduled PRN Albuterol Sulfate (Ventolin Hfa) 18 Gm Hfa.aer.ad, 2 PUFF INH Q4-6HP PRN for wheezing, (Reported) Cannabidiol (Cbd Oil) Btl, 250 MG PO Q4H PRN for PAIN, (Reported) Loratadine (Allergy Relief) 10 Mg Tab, 10 MG PO DAILY PRN for allergy, (Reported) Naproxen (Naproxen) 500 Mg Tablet.dr, 500 MG PO BID PRN for PAIN, (Reported) with food Allergies Coded Allergies: No Known Allergies (Verified , 08/10/17) TE PAYTON MD Jun 06, 2019 18:02
== END 2019-06-06 11:41 | disposition home or self-care (01) | DRG 114 ==
LOC: M MSPAV 15:32
PROVIDERS: ADMIT Hospitalist; ATTEND Internal Medicine
DX: K12.2 Cellulitis and abscess of mouth (principal); F20.0 Paranoid schizophrenia; I11.9 Hypertensive heart disease without heart failure; E11.9 Type 2 diabetes mellitus without complications; G47.33 Obstructive sleep apnea (adult) (pediatric); M51.36 Other intervertebral disc degeneration, lumbar region; F32.9 Major depressive disorder, single episode, unspecified; E55.9 Vitamin D deficiency, unspecified; Z79.82 Long term (current) use of aspirin; Z79.899 Other long term (current) drug therapy

== ENCOUNTER → 2019-06-03 | Outpatient (REF) | payer OTHER ==
[~2019-06-03] MED LIST changes: +CLIN150C14 PO; +LOPR1TAB6 PO
== END ==
LOC: M LAB REF 15:35
PROVIDERS: ATTEND Otolaryngology
DX: K11.3 Abscess of salivary gland (principal)

== ENCOUNTER 2019-07-08 13:25 | Emergency (ER) | payer OTHER ==
[~2019-07-08] VITALS: Ht 170.2 cm; Wt 118.2 kg
[~2019-07-08 13:25] MED LIST changes: +CBD OIL PO; +CLIN150C14 PO; +LOPR1TAB6 PO; +MUCI1TAB16 PO; +NAPR500T6 PO
--- NOTE | 2019-07-08 14:07 | REP ---
PA and lateral chest: Comparison is 04/12/2019. The lung amaya are clear. The cardiac size is normal. The vangie, mediastinum, and skeletal structures are unremarkable. Impression: Negative PA and lateral chest. There is no interval change. Electronically Signed by Keven Marie MD 07/08/2019 01:59 P
[2019-07-08] MEDS ORDERED: MUCI600T31 PO (14:31)
[2019-07-08] MEDS ORDERED: TESS100C PO (14:31)
[2019-07-08 14:42] VITALS: BP 130/67
== END 2019-07-08 14:42 | disposition home or self-care (01) ==
LOC: M ED 13:25
DX: J06.9 Acute upper respiratory infection, unspecified (principal); E11.9 Type 2 diabetes mellitus without complications; I10 Essential (primary) hypertension; G40.909 Epilepsy, unspecified, not intractable, without status epilepticus; E78.5 Hyperlipidemia, unspecified; Z79.899 Other long term (current) drug therapy; Z79.4 Long term (current) use of insulin; Z87.891 Personal history of nicotine dependence

== ENCOUNTER → 2019-07-14 | Outpatient (CLI) | payer OTHER ==
[~2019-07-14] MED LIST changes: +MUCI600T31 PO; +TESS100C PO
--- NOTE | 2019-07-14 10:12 | PFTRPT ---
Height: 67.00 Inches Weight: 260.00 Lbs BSA: 2.26 Diagnosis: COPD DATE OF PROCEDURE: 07/14/2019 ORDERED BY: Tamera Farfan Spirometry: Study of excellent technical quality. Forced vital capacity reduced. FEV1 in proportion. Obstructive index is, therefore, normal. Flow Volume Loop: Expiratory limb of the flow volume loop does suggest a restrictive impairment. No bronchodilator response identified. Lung Volumes: Total lung capacity borderline. Residual volume is generally in proportion. Diffusing Capacity: Diffusing capacity is normal. Hemoglobin: No hemoglobin available for correction. Airway Mechanics: Airway resistance and conductance are normal. IMPRESSION: Suspect at least a mild restrictive ventilatory impairment. Please correlate clinically. MTDD
== END ==
LOC: M CARPUL 07:53
PROVIDERS: ATTEND Nurse Practitioner Family
DX: J42 Unspecified chronic bronchitis (principal)

== ENCOUNTER → 2019-07-17 | Outpatient (CLI) | payer OTHER ==
[2019-07-17 08:46] LABS: BASO % 0.3 % (0.0-1.0); EOS # 0.2 10^3/uL (0.0-0.5); EOS % 3.3 % (0.0-3.0); HEMOGLOBIN 14.3 g/dl (13.5-17.5); LYMPH # 2.4 10^3/uL (1.5-5.0); LYMPH % 34.1 % (24.0-44.0); MEAN CORPUSCULAR HEMOGLOBIN 29.6 pg (27.0-33.0); MEAN CORPUSCULAR HGB CONC 34.9 g/dl (32.0-36.5); MEAN CORPUSCULAR VOLUME 84.9 fl (80.0-96.0); MONO # 0.7 10^3/uL (0.0-0.8); MONO % 9.8 % (0.0-5.0); NEUTROPHILS # 3.6 10^3/uL (1.5-8.5); NEUTROPHILS % 52.2 % (36.0-66.0); PLATELET COUNT, AUTOMATED 246 10^3/uL (150-450); RED BLOOD COUNT 4.83 10^6/uL (4.30-6.10); WHITE BLOOD COUNT 6.9 10^3/uL (4.0-10.0)
[2019-07-17 09:10] LABS: HEMOGLOBIN A1c 7.7 %
[2019-07-17 09:22] LABS: ALBUMIN 3.8 GM/DL (3.2-5.2); ALT/SGPT 42 U/L (12-78); BILIRUBIN,DIRECT 0.3 MG/DL (0.0-0.2); BILIRUBIN,TOTAL 0.9 MG/DL (0.2-1.0); BLOOD UREA NITROGEN 12 MG/DL (7-18); CALCIUM LEVEL 8.8 MG/DL (8.8-10.2); CARBON DIOXIDE LEVEL 30 MEQ/L (21-32); CHLORIDE LEVEL 104 MEQ/L (98-107); CHOLESTEROL LEVEL 91 MG/DL (<200); CHOLESTEROL RISK RATIO 2.459 (<5); CREATININE FOR GFR 1.16 MG/DL (0.70-1.30); GLOMERULAR FILTRATION RATE > 60.0 (>49); GLUCOSE, FASTING 82 MG/DL (70-100); HDL CHOLESTEROL 37 MG/DL (>40); LDL CHOLESTEROL 28 MG/DL (<100); NON-HDL-C 54 MG/DL; POTASSIUM SERUM 3.6 MEQ/L (3.5-5.1); SODIUM LEVEL 141 MEQ/L (136-145); TOTAL PROTEIN 6.8 GM/DL (6.4-8.2); TRIGLYCERIDES LEVEL 130 MG/DL (<150)
[2019-07-17 09:24] LABS: TOTAL 25(OH) VITAMIN D 39.5 NG/ML (30.0-100.0); VITAMIN B12 LEVEL 481 PG/ML (247-911)
[2019-07-18 10:04] LABS: THYROGLOBULIN ANTIBODY < 15.0 U/ML (<60.0)
== END ==
LOC: M LAB 07-16 14:43
PROVIDERS: ATTEND Nurse Practitioner Psychiatric/Mental Health
DX: Z51.81 Encounter for therapeutic drug level monitoring (principal); Z79.899 Other long term (current) drug therapy; F25.9 Schizoaffective disorder, unspecified

== ENCOUNTER → 2019-08-21 | Outpatient (REF) | payer OTHER ==
[2019-08-21 12:08] LABS: BLOOD UREA NITROGEN 11 MG/DL (7-18); CARBON DIOXIDE LEVEL 31 MEQ/L (21-32); CHLORIDE LEVEL 97 MEQ/L (98-107); CREATININE FOR GFR 1.13 MG/DL (0.70-1.30); GLOMERULAR FILTRATION RATE > 60.0 (>49); GLUCOSE, FASTING 140 MG/DL (70-100); POTASSIUM SERUM 3.7 MEQ/L (3.5-5.1); SODIUM LEVEL 136 MEQ/L (136-145)
[2019-08-21 12:09] LABS: ALBUMIN 3.9 GM/DL (3.2-5.2); ALT/SGPT 51 U/L (12-78); HEMOGLOBIN A1c 7.4 %; TOTAL PROTEIN 6.9 GM/DL (6.4-8.2)
[2019-08-21 12:23] LABS: CREATININE, URINE 92.1 MG/DL; MALB URINE SIEMENS 8.2 MG/L; MAU/CREAT RATIO 8.9 MCG/MG (0.0-30.0)
== END ==
LOC: M SFHCPLAZ 08:05
PROVIDERS: ATTEND Nurse Practitioner Family
DX: E11.9 Type 2 diabetes mellitus without complications (principal)

== ENCOUNTER 2019-10-15 08:20 | Emergency (ER) | payer OTHER ==
[~2019-10-15] VITALS: Ht 170.2 cm; Wt 120.9 kg
--- NOTE | 2019-10-15 08:54 | REP ---
Clinical: Cough . Comparison: 07/08/2019 . Technique: PA and lateral. Findings: The mediastinum and cardiac silhouette are normal. The lung amaya are clear and without acute consolidation, effusion, or pneumothorax. The skeletal structures are intact and normal. Impression: 1. No acute cardiopulmonary process. Electronically Signed by Boogie Lance MD 10/15/2019 08:46 A
[2019-10-15 09:16] LABS: INFLUENZA A AMPLIFICATION NEGATIVE (NEGATIVE); INFLUENZA B AMPLIFICATION NEGATIVE (NEGATIVE)
[2019-10-15 09:48] VITALS: BP 146/72
== END 2019-10-15 09:50 | disposition home or self-care (01) ==
LOC: M ED 08:20
DX: J06.9 Acute upper respiratory infection, unspecified (principal); E11.9 Type 2 diabetes mellitus without complications; I10 Essential (primary) hypertension; G47.33 Obstructive sleep apnea (adult) (pediatric); F20.9 Schizophrenia, unspecified; E78.00 Pure hypercholesterolemia, unspecified; J44.9 Chronic obstructive pulmonary disease, unspecified; F41.9 Anxiety disorder, unspecified; F32.9 Major depressive disorder, single episode, unspecified; Z79.4 Long term (current) use of insulin; Z79.899 Other long term (current) drug therapy

== ENCOUNTER → 2020-01-20 | Outpatient (REF) | payer OTHER | LOC: M SFHCPLAZ 16:39 | PROVIDERS: ATTEND Internal Medicine | DX: Z20.9 Contact with and (suspected) exposure to unspecified communicable disease (principal) | CPT/HCPCS: 87502; U0002 ==

== ENCOUNTER → 2020-02-17 | Outpatient (REF) | payer OTHER ==
[2020-02-17 11:15] LABS: ALBUMIN 4.2 GM/DL (3.2-5.2); ALT/SGPT 83 U/L (12-78); BILIRUBIN,TOTAL 0.7 MG/DL (0.2-1.0); BLOOD UREA NITROGEN 18 MG/DL (7-18); CALCIUM LEVEL 9.7 MG/DL (8.8-10.2); CARBON DIOXIDE LEVEL 33 MEQ/L (21-32); CHLORIDE LEVEL 100 MEQ/L (98-107); CHOLESTEROL LEVEL 112 MG/DL (<200); CHOLESTEROL RISK RATIO 2.666 (<5); CREATININE FOR GFR 1.06 MG/DL (0.70-1.30); GLOMERULAR FILTRATION RATE > 60.0 (>49); GLUCOSE, FASTING 233 MG/DL (70-100); HDL CHOLESTEROL 42 MG/DL (>40); LDL CHOLESTEROL 47 MG/DL (<100); NON-HDL-C 70 MG/DL; POTASSIUM SERUM 4.2 MEQ/L (3.5-5.1); SODIUM LEVEL 137 MEQ/L (136-145); TOTAL PROTEIN 7.4 GM/DL (6.4-8.2); TRIGLYCERIDES LEVEL 116 MG/DL (<150)
[2020-02-17 11:19] LABS: TOTAL 25(OH) VITAMIN D 56.5 NG/ML (30.0-100.0)
[2020-02-17 11:50] LABS: MALB URINE SIEMENS 25.9 MG/L; MAU/CREAT RATIO 17.9 MCG/MG (0.0-30.0)
[2020-02-17 11:57] LABS: HEMOGLOBIN A1c 10.2 %
== END ==
LOC: M PLALAB 08:14
PROVIDERS: ATTEND Nurse Practitioner Family
DX: I10 Essential (primary) hypertension (principal); E11.9 Type 2 diabetes mellitus without complications; E78.2 Mixed hyperlipidemia; E55.9 Vitamin D deficiency, unspecified

== ENCOUNTER → 2020-07-28 | Outpatient (REF) | payer OTHER ==
[2020-07-28 10:58] LABS: HEMOGLOBIN A1c 8.8 %
[2020-07-28 11:01] LABS: ALBUMIN 3.8 GM/DL (3.2-5.2); ALT/SGPT 64 U/L (12-78); BILIRUBIN,TOTAL 0.7 MG/DL (0.2-1.0); BLOOD UREA NITROGEN 15 MG/DL (7-18); CALCIUM LEVEL 9.2 MG/DL (8.8-10.2); CARBON DIOXIDE LEVEL 34 MEQ/L (21-32); CHLORIDE LEVEL 103 MEQ/L (98-107); CREATININE FOR GFR 1.15 MG/DL (0.70-1.30); GLOMERULAR FILTRATION RATE > 60.0 (>49); GLUCOSE, FASTING 127 MG/DL (70-100); POTASSIUM SERUM 4.3 MEQ/L (3.5-5.1); SODIUM LEVEL 141 MEQ/L (136-145); TOTAL PROTEIN 6.8 GM/DL (6.4-8.2)
[2020-07-28 11:08] LABS: MALB URINE SIEMENS 9.9 MG/L; MAU/CREAT RATIO 5.5 MCG/MG (0.0-30.0)
[2020-07-28 11:09] LABS: TOTAL 25(OH) VITAMIN D 46.5 NG/ML (30.0-100.0)
== END ==
LOC: M PLALAB 08:07
PROVIDERS: ATTEND Nurse Practitioner Family
DX: E11.65 Type 2 diabetes mellitus with hyperglycemia (principal); E55.9 Vitamin D deficiency, unspecified; Z79.4 Long term (current) use of insulin

== ENCOUNTER 2020-08-04 23:56 | Emergency (ER) | payer OTHER ==
[~2020-08-04] VITALS: Ht 170.2 cm; Wt 122.7 kg
[2020-08-05 01:52] LABS: HEMOGLOBIN 14.6 g/dl (13.5-17.5); MEAN CORPUSCULAR VOLUME 82.5 fl (80.0-96.0); PLATELET COUNT, AUTOMATED 222 10^3/uL (150-450); RED BLOOD COUNT 5.21 10^6/uL (4.30-6.10); WHITE BLOOD COUNT 6.4 10^3/uL (4.0-10.0)
[2020-08-05 02:16] LABS: BLOOD UREA NITROGEN 13 MG/DL (7-18); CALCIUM LEVEL 8.5 MG/DL (8.8-10.2); CARBON DIOXIDE LEVEL 30 MEQ/L (21-32); CHLORIDE LEVEL 104 MEQ/L (98-107); CREATININE FOR GFR 1.12 MG/DL (0.70-1.30); GLOMERULAR FILTRATION RATE > 60.0 (>49); GLUCOSE, FASTING 106 MG/DL (70-100); INR 1.05; POTASSIUM SERUM 3.6 MEQ/L (3.5-5.1); PROTHROMBIN TIME 13.9 SECONDS (12.5-14.3); SODIUM LEVEL 141 MEQ/L (136-145)
[2020-08-05 02:17] LABS: PARTIAL THROMBOPLASTIN TIME 28.6 SECONDS (24.2-38.5)
[2020-08-05 03:30] VITALS: BP 141/79
== END 2020-08-05 03:50 | disposition home or self-care (01) ==
LOC: M ED 23:56
DX: R04.0 Epistaxis (principal); E11.9 Type 2 diabetes mellitus without complications; J44.9 Chronic obstructive pulmonary disease, unspecified; I50.9 Heart failure, unspecified; Z79.4 Long term (current) use of insulin; Z79.51 Long term (current) use of inhaled steroids; Z79.82 Long term (current) use of aspirin; Z79.899 Other long term (current) drug therapy

== ENCOUNTER → 2020-10-20 | Outpatient (REF) | payer OTHER ==
[2020-10-20 13:57] LABS: ALBUMIN 3.9 GM/DL (3.2-5.2); ALT/SGPT 82 U/L (12-78); BILIRUBIN,TOTAL 0.8 MG/DL (0.2-1.0); BLOOD UREA NITROGEN 17 MG/DL (7-18); CALCIUM LEVEL 9.4 MG/DL (8.8-10.2); CARBON DIOXIDE LEVEL 34 MEQ/L (21-32); CHLORIDE LEVEL 104 MEQ/L (98-107); CREATININE FOR GFR 1.15 MG/DL (0.70-1.30); GLOMERULAR FILTRATION RATE > 60.0 (>49); GLUCOSE, FASTING 121 MG/DL (70-100); POTASSIUM SERUM 3.9 MEQ/L (3.5-5.1); SODIUM LEVEL 141 MEQ/L (136-145); TOTAL 25(OH) VITAMIN D 56.1 NG/ML (30.0-100.0); TOTAL PROTEIN 6.8 GM/DL (6.4-8.2)
[2020-10-20 14:22] LABS: HEMOGLOBIN A1c 8.4 %
== END ==
LOC: M PLALAB 08:53
PROVIDERS: ATTEND Nurse Practitioner Family
DX: E11.65 Type 2 diabetes mellitus with hyperglycemia (principal); E55.9 Vitamin D deficiency, unspecified

== ENCOUNTER 2020-11-24 07:52 | Emergency (ER) | payer OTHER ==
[~2020-11-24] VITALS: Ht 170.2 cm; Wt 131.8 kg
[~2020-11-24 07:52] MED LIST changes: -CLIN150C14 PO; +CLIN150C15 PO; +LISI10TA22 PO; -LISI10TA4 PO; -LISI40TA PO; +LISI40TA4 PO
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
--- OUTSIDE RECORDS SUMMARY | 2020-11-24 07:59 | CCD ---
Author Organization Unknown Address [address] [place] [address] Phone [phone] Care Team Providers Care Genetic Engineer Name Role Phone [place] Unavailable Unavailable Allergies None recorded. Medications None recorded. Problems Name Status Onset Date Source Paranoid Schizophrenia Active 06/20/2013 History Hypertensive Disorder Active 06/20/2013 History Arthropathy Active 06/20/2013 History Vitamin D Deficiency Active 08/28/2013 History Seborrheic Dermatitis Active 08/28/2013 History General Finding of Observation of Patient Active 2012 History Disorder of Upper Respiratory System Active 09/25/2013 History Tinea Pedis Active 10/24/2013 History Screening for Malignant Neoplasm of Prostate Active 07/[address] Concept Active 10/24/2013 History Screening Procedure Active 10/24/2013 History Liver Enzyme Levels - Finding Active 10/24/2013 Hi story Candidiasis of Mouth Active 10/27/2013 History Allergic Rhinitis Active 10/27/2013 History Cough Active 10/27/2013 History Schizophrenia Active 11/03/2013 History Sleep Apnea Active 02/02/2014 History Long-term Current Use of Anticoagulant Active 4 History 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 02/06/2014 History Disorder of Soft Tissue Active 02/06/2014 History Clinical Finding Active 09/15/2014 History Joint Finding Active 10/26/2014 History Sciatica Active 10/28/2014 History Finding of Upper Limb Active 01/20/2015 History Finding by Site Active 01/20/2015 History Finding of Neck Region Active 01/20/2015 History Dental Caries on Smooth Surface Penetrating into Pulp Active 03/01/2018 History Depressive Disorder Active History SNOMED CT Concept Active History Clinical Finding Active History Procedures Notes: stitches left knee., Tonsillectom y , Cancer left calf removed 2012, Results Lab Results Date Name Specimen Result Interpretation Description Value Range Status Address 10/25/2020 SARS CoV 2 RdRp Gene, QL Probe, Respirat ory Specimen Nose (nasal passage) Normal Sars-cov-2 negative negative Final [facility]: [address] [facility] Past Encounters 10/25/2020 Exposure to SARS-CoV-2 Arpit Villa MD: [address] [place] [address], Ph. Social History None recorded. Vaccine List Vaccine Type pneumococcal polysaccharide PPV23 05/25/20140.5 mL Plan of Care Reminders Provider Appointments None recorded. Lab None recorded. Referral None recorded. Procedures None recorded. Surgeries None recorded. Imaging None recorded. Vitals None recorded.
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
--- OUTSIDE RECORDS SUMMARY | 2020-11-24 07:59 | CCD | Continuity of Care Document ---
Author Author Ej BARAKAT [facility] Unknown Address [address] [place] [address] Phone [phone] Care Team Providers Care Stock Counter Name Role Phone Arpit BurgosM [phone] Problems Description No Information Available Social History Type Date Description Comments Sex Unknown Allergies, Adverse Reactions, Alerts Description No Information Available Medications Description No Information Available Immunizations Description No Information Available Vital Signs Description No Information Available Results Description No Information Available Procedures Description No Information Available Medical Devices Description No Information Available Encounters Description No Information Available Assessments Description No Information Available Plan of Treatment No Information Available Functional Status Description No Information Available Mental Status Description No Information Available Referrals Description No Information Available
--- OUTSIDE RECORDS SUMMARY | 2020-11-24 07:59 | CCD | Continuity of Care Document ---
Author Author Ej BARAKAT [facility] Unknown Address [address] [place] [address] Phone [phone] Care Team Providers Care Drafter Castings Name Role Phone Arpit BurgosM [phone] Problems Description No Information Available Social History [...]
--- OUTSIDE RECORDS SUMMARY | 2020-11-24 08:00 | CCD ---
Author Author [facility] Organization [facility] Address Unknown Phone Unavailable Care Team Providers Care Compliance Review Officer Name Role Phone Pedro DALE DPM Unavailable Unavailable Pedro DALE DPM Unavailable Unavailable Pedro DALE DPM Unavailable Unavailable Pedro DALE DPM Unavailable Unavailable Pedro DALE DPM Unavailable Unavailable Pedro DALE DPM Unavailable Unavailable Pedro DALE DPM Unavailable Unavailable MAJAK, R LUPE DPM Unavailable Unavailable MAJAK, R LUEP DPM Unavailable Unavailable MAJAK, R LUPE DPM Unavailable Unavailable MAJAK, R LUPE DPM Unavailable Unavailable MAJAK, R LUPE DPM Unavailable Unavailable MAJAK, R LUPE DPM Unavailable Unavailable MAJAK, R LUPE DPM Unavailable Unavailable MAJAK, R LUPE DPM Unavailable Unavailable MAJAK, R LUPE DPM Unavailable Unavailable MAJAK, R LUPE DPM Unavailable Unavailable MAJAK, R LUPE DPM Unavailable Unavailable MAJAK, R LUPE DPM Unavailable Unavailable MAJAK, R LUPE DPM Unavailable Unavailable MAJAK, R LUPE DPM Unavailable Unavailable MAJAK, R LUPE DPM Unavailable Unavailable MAJAK, R LUPE DPM Unavailable Unavailable MAJAK, R LUPE DPM Unavailable Unavailable MAJAK, R LUPE DPM Unavailable Unavailable MAJAK, R LUPE DPM Unavailable Unavailable MAJAK, R LUPE DPM Unavailable Unavailable MAJAK, R LUPE DPM Unavailable Unavailable MAJAK, R LUPE DPM Unavailable Unavailable MAJAK, R LUPE DPM Unavailable Unavailable Sedrick Villa MD Unavailable Unavailable Sedrick Villa MD Unavailable Unavailable Sedrick Villa MD Unavailable Unavailable Sedrick Villa MD Unavailable Unavailable Sedrick Villa MD Unavailable Unavailable Sedrick Villa MD Unavailable Unavailable Sedrick Villa MD Unavailable Unavailable Sedrick Villa MD Unavailable Unavailable Sedrick Villa MD Unavailable Unavailable Sedrick Villa MD Unavailable Unavailable Sedrick Villa MD Unavailable Unavailable Sedrick Villa MD Unavailable Unavailable Sedrick Villa MD Unavailable Unavailable Sedrick Villa MD Unavailable Unavailable Sedrick Villa MD Unavailable Unavailable Sedrick Villa MD Unavailable Unavailable Sedrick Villa MD Unavailable Unavailable Sedrick Villa MD Unavailable Unavailable Sedrick Villa MD Unavailable Unavailable Sedrick Villa MD Unavailable Unavailable Sedrick Villa MD Unavailable Unavailable Sedrick Villa MD Unavailable Unavailable Sedrick Villa MD Unavailable Unavailable Sedrick Villa MD Unavailable Unavailable Sedrick Villa MD Unavailable Unavailable Sedrick Villa MD Unavailable Unavailable Sedrick Villa MD Unavailable Unavailable Sedrick Villa MD Unavailable Unavailable Sedrick Villa MD Unavailable Unavailable Sedrick Villa MD Unavailable Unavailable Sedrick Villa MD Unavailable Unavailable Sedrick Villa MD Unavailable Unavailable Sedrick Villa MD Unavailable Unavailable Sedrick Villa MD Unavailable Unavailable Sedrick Villa MD Unavailable Unavailable Sedrick Villa MD Unavailable Unavailable Sedrick Villa MD Unavailable Unavailable Sedrick iVlla MD Unavailable Unavailable Sedrcik Villa MD Unavailable Unavailable Sedrick Villa MD Unavailable Unavailable Villa, Sedrick Munson MD Unavailable Unavailable Villa, Sedrick Munson MD Unavailable Unavailable Villa, Sedrick Munson MD Unavailable Unavailable Villa, Sedrick Munson MD Unavailable Unavailable Villa, Sedrick Munson MD Unavailable Unavailable Villa, Sedrick Munson MD Unavailable Unavailable Villa, Sedrick Munson MD Unavailable Unavailable Villa, Sedrick Munson MD Unavailable Unavailable Villa, Sedrick Munson MD Unavailable Unavailable Villa, Sedrick Munson MD Unavailable Unavailable Villa, Sedrick Munson MD Unavailable Unavailable Villa, Sedrick Munson MD Unavailable Unavailable Villa, Sedrick Munson MD Unavailable Unavailable Villa, Sedrick Munson MD Unavailable Unavailable Villa, Sedrick Munson MD Unavailable Unavailable Villa, Sedrick Munson MD Unavailable Unavailable Villa, Sedrick Munson MD Unavailable Unavailable Villa, Sedrick Munson MD Unavailable Unavailable Villa, Sedrick Munson MD Unavailable Unavailable Villa, Sedrick Munson MD Unavailable Unavailable Villa, Sedrick Munson MD Unavailable Unavailable Villa, Sedrick Munson MD Unavailable Unavailable Villa, Sedrick Munson MD Unavailable Unavailable Villa, Sedrick Munson MD Unavailable Unavailable Villa, Sedrick Munson MD Unavailable Unavailable Villa, Sedrick Munson MD Unavailable Unavailable Villa, Sedrick Munson MD Unavailable Unavailable Villa, Sedrick Munson MD Unavailable Unavailable Villa, Sedrick Musnon MD Unavailable Unavailable Villa, Sedrick Munson MD Unavailable Unavailable Villa, Sedrick Munson MD Unavailable Unavailable Villa, Sedrick Munson MD Unavailable Unavailable Villa, Sedrick Munson MD Unavailable Unavailable Villa, Sedrick Munson MD Unavailable Unavailable Villa, Sedrick Munson MD Unavailable Unavailable Villa, Sedrick Munson MD Unavailable Unavailable Villa, Sedrick Munson MD Unavailable Unavailable Villa, Sedrick Munson MD Unavailable Unavailable Villa, Sedrick Munson MD Unavailable Unavailable Villa, Sedrick Munson MD Unavailable Unavailable Villa, Sedrick Munson MD Unavailable Unavailable Villa, Sedrick Munson MD Unavailable Unavailable Villa, Sedrick Munson MD Unavailable Unavailable Villa, Sedrick Munson MD Unavailable Unavailable Villa, Sedrick Munson MD Unavailable Unavailable Villa, Sedrick Munson MD Unavailable Unavailable Villa, Sedrick Munson MD Unavailable Unavailable Villa, Sedrick Munson MD Unavailable Unavailable Villa, Sedrick Munson MD Unavailable Unavailable [facility], MJAIN Unavailable Unavailable Dille E Bailey DDS Unavailable Unavailable Dille, E Bailey DDS Unavailable Unavailable Dille, E Bailey DDS Unavailable Unavailable Dille, E Bailey DDS Unavailable Unavailable Re-disclosure Warning The records that you are about to access may contain information from federally-assisted alcohol or drug abuse programs. If such information is present, then the following federally mandated warning applies: This information has been disclosed to you from records protected by federal confidentiality rules (42 CFR part 2). The federal rules prohibit you from making any further disclosure of this information unless further disclosure is expressly permitted by the written consent of the person to whom it pertains or as otherwise permitted by 42 CFR part 2. A general authorization for the release of medical or other information is NOT sufficient for this purpose. The Federal rules restrict any use of the information to criminally investigate or prosecute any alcohol or drug abuse patient.The records that you are about to access may contain highly sensitive health information, the redisclosure of which is protected by Article 27-F of the [facility] Public Health law. If you continue you may have access to information: Regarding HIV / AIDS; Provided by facilities licensed or operated by the [facility] Office of Mental Health; or Provided by the [facility] Office for People With Developmental Disabilities. If such information is present, then the following [facility] mandated warning applies: This information has been disclosed to you from confidential records which are protected by state law. State law prohibits you from making any further disclosure of this information without the specific written consent of the person to whom it pertains, or as otherwise permitted by law. Any unauthorized further disclosure in violation of state law may result in a fine or fdc sentence or both. A general authorization for the release of medical or other information is NOT sufficient authorization for further disc losure. Allergies and Adverse Reactions Type Description Substance Reaction Status Data Source(s ) Drug allergy Metoprolol Tartrate Metoprolol abdominal pain Active eCW1 ([facility]) cigerette smoke cigerette smoke cigerette smoke hard time breathing Active eCW1 ([facility]) cigerette smoke cigerette smoke cigerette smoke hard time breathing Active eCW1 ([facility]) Allergy to substance Allergy to substance Allergy to substance JEREMY ([facility]) Family History Family Member Name Family Member Gender Family Member Status Date o f Status Description Data Source(s) Unknown Female Problem MEDENT ([facility] Encounters Encounter Providers Location Date Indications Data Source(s ) [place] [address] [facility] [place] [address] 11/23/2020 12:00:00 AM EST eCW1 ([facility]) Unknown [address] [facility] [address] 11/19/2020 12:00:00 AM EST eCW1 ([facility]) Unknown [address] [facility] [address] 11/16/2020 12:00:00 AM EST eCW1 ([facility]) Outpatient [address] [facility] [address] 11/03/2020 12:00:00 AM EST eCW1 ([facility]) Arpit Villa MD: [address] [place] [phone], Ph. Attender: Arpit Villa MD [place] - [facility] Medical 10/25/2020 12:00:00 AM EST JEREMY ([facility]) Outpatient [address] [facility] [address] 10/20/2020 12:00:00 AM EST eCW1 ([facility]) Unknown [address] [facility] [address] 10/20/2020 12:00:00 AM EST eCW1 ([facility]) Unknown [address] [facility] [address] 08/12/2020 12:00:00 AM EDT eCW1 ([facility]) Unknown [address] [facility] [address] 08/09/2020 12:00:00 AM EDT eCW1 ([facility]) Outpatient Attender: JARAD [facility] 08/05/2020 10:09:[address] [facility] Outpatient [address] [facility] [address] 08/05/2020 12:00:00 AM EDT eCW1 ([facility]) Outpatient Attender: JARAD [facility] 07/26/2020 12:04:[address] [facility] Outpatient Attender: JARAD [facility] 07/26/2020 12:03:[address] [facility] 07/26/2020 09:41:[address] [facility] Outpatient Attender: JARAD [facility] 07/26/2020 08:58:[address] [facility] Outpatient Attender: JARAD [facility] 07/26/2020 08:57:[address] [facility] Outpatient Attender: CAROLINA [facility] 07/26/2020 08:56:[address] [facility] Outpatient Attender: [place] ELLI HATFIELD 07/23/2020 11:18:[address] [facility] Outpatient Attender: Bailey [place] LIZRoberto LIU 07/09/2020 01:20:00 P M EDT [facility] [place] [address] [facility] [address] 05/31/2020 12:00:00 AM EDT eCW1 ([facility]) Outpatient Attender: LUPE DALE [facility] 04/14 10:45:00 AM EDT MEDENT ([facility] Unknown [address] [facility] [address] 04/05/2020 12:00:00 AM EDT eCW1 ([facility]) [place] [address] [facility] [place] [address] 04/05/2020 12:00:00 AM EDT eCW1 ([facility]) [facility] [place] [address] [facility] [address] 03/15/2020 12:00:00 AM EDT eCW1 ([facility]) Outpatient [address] [facility] [address] 03/12/2020 12:00:00 AM EDT eCW1 ([facility]) [facility] [place] [address] [facility] [place] [address] 03/09/2020 12:00:00 AM EDT eCW1 ([facility]) [facility] [place] [address] [facility] [address] 03/01/2020 12:00:00 AM EDT eCW1 ([facility]) [facility] [place] [address] [facility] [address] 03/01/2020 12:00:00 AM EDT eCW1 ([facility]) [facility] [address] [facility] [address] 02/23/2020 12:00:00 AM EDT eCW1 ([facility]) [facility] [address] [facility] [address] 02/17/2020 12:00:00 AM EDT eCW1 ([facility]) [facility] [address] [place] [address], [place] [address] 02/17/2020 12:00:00 AM EDT eCW1 ([facility]) [facility] [address] [place] [address], [place] [address] 02/16/2020 12:00:00 AM EDT eCW1 ([facility]) [facility] [address] [place] [address], [place] [address] 02/16/2020 12:00:00 AM EDT eCW1 ([facility]) [facility] [address] [place] [address], [place] [address] 02/13/2020 12:00:00 AM EDT eCW1 ([facility]) [facility] [address] [place] [address], [place] [address] 02/13/2020 12:00:00 AM EDT eCW1 ([facility]) [facility] [address] [place] [address], [place] [address] 02/12/2020 12:00:00 AM EDT eCW1 ([facility]) [facility] [address] [place] [address], [place] [address] 02/12/2020 12:00:00 AM EDT eCW1 ([facility]) [facility] [address] [place] [address], [place] [address] 01/22/2020 12:00:00 AM EDT eCW1 ([facility]) [address] [address] 01/21/2020 12:00:00 AM EDT eCW1 ([facility]) [facility] [address] [facility] [address] 01/20/2020 12:00:00 AM EDT eCW1 ([facility]) Unknown [address] [facility] [address] 01/19/2020 12:00:00 AM EDT eCW1 ([facility]) Outpatient [address] [facility] [address] 01/16/2020 12:00:00 AM EDT eCW1 ([facility]) [facility] [address] [facility] [address] 01/12/2020 12:00:00 AM EDT eCW1 ([facility]) [facility] [address] [place] [address], [place] [address] 12/30/2019 12:00:00 AM EDT eCW1 ([facility]) [facility] [address] [place] [address], [place] [address] 12/29/2019 12:00:00 AM EDT eCW1 ([facility]) [facility] [address] [facility] [address] 12/24/2019 12:00:00 AM EDT eCW1 ([facility]) [facility] [address] [place] [address], [place] [address] 12/24/2019 12:00:00 AM EDT eCW1 ([facility]) [facility] [address] [place] [address], [place] [address] 11/26/2019 12:00:00 AM EST eCW1 ([facility]) [facility] [address] [place] [address], [place] [address] 11/19/2019 12:00:00 AM EST eCW1 ([facility]) Outpatient 10/22/2019 04:33:00 PM EST [facility] [address] [facility] [address] 10/21/2019 12:00:00 AM EST eCW1 ([facility]) [facility] [address] [facility] [address] 10/20/2019 12:00:00 AM EST eCW1 ([facility]) [address] [address] 10/20/2019 12:00:00 AM EST eCW1 ([facility]) [facility] [address] [place] [address], [place] [address] 10/16/2019 12:00:00 AM EST eCW1 ([facility]) [address] [address] 10/06/2019 12:00:00 AM EST eCW1 ([facility]) Medications Medication Brand Name Start Date Product Form Dose Route Admi nistrative Instructions Pharmacy Instructions Status Indications Reaction Description Data Source(s) 0.5 ML dulaglutide 3 MG/ML Auto-Injector [Trulicity] T rulicity 1.5 MG/0.5ML Trulicity 1.5 MG/0.5ML 11/23/2020 12:00:00 AM EST active Trulicity 1.5 MG/0.5ML eCW1 ([facility]) 5-325 mg 11/22/2020 12:00:00 AM EST tablet 16 TAKE ONE TABLET BY MOUTH EVERY 6 HOURS NEEDED FOR PAIN, MAXIMUM DAILY DOSE = FOUR TABLETS TAKE ONE TABLET BY MOUTH EVERY 6 HOURS NEEDED FOR PAIN, MAXIMUM DAILY DOSE = FOUR TABLETS SOLD: 11/22/2020 [facility] 500 mg 11/22/2020 12:00:00 AM EST capsule 21 TAKE ONE CAPSULE BY MOUTH EVERY 8 HOURS UNTIL GONE TAKE ONE CAPSULE BY MOUTH EVERY 8 HOURS UNTIL GONE [facility]IE [facility] 800 mg 11/22/2020 12:00:00 AM EST tablet 20 TAKE ONE TABLET BY MOUTH EVERY 8 HOURS TAKE ONE TABLET BY MOUTH EVERY 8 HOURS SOLD: 11/22/2020 [facility] 0.12 % 11/22/2020 12:00:00 AM EST mouthwash 473 RINSE AND SPIT WITH 15ML (ONE CAPUL) FOR 30 SECONDS TWO TIMES A DAY AFTER TOOTHBRUSHING-DO NOT SWALLOW. RINSE AND SPIT WITH 15ML (ONE CAPUL) FOR 30 SECONDS TWO TIMES A DAY AFTER TOOTHBRUSHING-DO NOT SWALLOW. SOLD: 11/22/2020 [facility] 50 mg 11/15/2020 12:00:00 AM EST tablet 60 TAKE ONE TABLET BY MOUTH TWO TIMES A DAY TAKE ONE TABLET BY MOUTH TWO TIMES A DAY SOLD: 11/15/2020 [facility] 25 mg 11/15/2020 12:00:00 AM EST tablet 15 TAKE 1/2 TABLET BY MOUTH EVERY MORNING WITH FOOD TAKE 1/2 TABLET BY MOUTH EVERY MORNING WITH FOOD SOLD: 11/15/2020 [facility] Trulicity 3 MG/0.5ML Trulicity 3 MG/0.5ML 11/03/2020 12:00:00 AM EST active Trulicity 3 MG/0.5ML eCW1 ([facility]) Trulicity 3 MG/0.5ML Trulicity 3 MG/0.5ML 11/03/2020 12:00:00 AM EST active Trulicity 3 MG/0.5ML eCW1 ([facility]) Trulicity 3 MG/0.5ML Trulicity 3 MG/0.5ML 11/03/2020 12:00:00 AM EST active Trulicity 3 MG/0.5ML eCW1 ([facility]) 1 % 10/21/2020 12:00:00 AM EST powder 45 APPLY BETWEEN THE TOES TWO TIMES A DAY APPLY BETWEEN THE TOES TWO TIMES A DAY SOLD: 10/25/2020 [facility] 90 mcg/actuation 10/20/2020 12:00:00 AM EST HFA aerosol inha ler 18 INHALE TWO PUFFS BY MOUTH EVERY 4 HOURS NEEDED INHALE TWO PUFFS BY MOUTH EVERY 4 HOURS NEEDED SOLD: 10/22/2020 [facility] Ketoconazole 20 MG/ML Medicated Shampoo KETOCONAZOLE 10/20/19 21 12:00:00 AM EST shampoo 120 APPLYL TO SCALP AND OJYA 3 TIME S A WEEK APPLYL TO SCALP AND JOYA 3 TIMES A WEEK SOLD: 10/22/2020 [facility] 10 mg 10/18/2020 12:00:00 AM EST tablet 30 TAKE ONE TABLET BY MOUTH EVERY DAY TAKE ONE TABLET BY MOUTH EVERY DAY SOLD: 10/25/2020 [facility] 40 mg 10/18/2020 12:00:00 AM EST tablet 30 TAKE ONE TABLET BY MOUTH EVERY MORNING TAKE ONE TABLET BY MOUTH EVERY MORNING SOLD: 10/25/2020 [facility] 400 mg 10/11/2020 12:00:00 AM EST suspension,extended rel syring 1 INJECT INTRAMUSCULARLY ONCE MONTHLY INJECT INTRAMUSCULARLY ONCE MONTHLY SOLD: 11/10/2020 [facility] 400 mg 10/11/2020 12:00:00 AM EST suspension,extended rel syring 1 INJECT INTRAMUSCULARLY ONCE MONTHLY INJECT INTRAMUSCULARLY ONCE MONTHLY SOLD: 10/11/2020 [facility] 40 mg 09/01/2020 12:00:00 AM EST tablet 19 TAKE ONE TABLET BY MOUTH EVERY MORNING TAKE ONE TABLET BY MOUTH EVERY MORNING SOLD: 09/30/2020 [facility] 40 mg 09/01/2020 12:00:00 AM EST tablet 30 TAKE ONE TABLET BY MOUTH EVERY MORNING TAKE ONE TABLET BY MOUTH EVERY MORNING SOLD: 09/03/2020 [facility] 400 mg 08/10/2020 12:00:00 AM EDT suspension,extended rel recon 1 INJECT INTRAMUSCULARLY ONCE EVERY 4 WEEKS INJECT INTRAMUSCULARLY ONCE EVERY 4 WEEKS SOLD: 08/10/2020 [facility] 400 mg 08/10/2020 12:00:00 AM EDT suspension,extended rel recon 1 INJECT INTRAMUSCULARLY ONCE EVERY 4 WEEKS INJECT INTRAMUSCULARLY ONCE EVERY 4 WEEKS SOLD: 09/11/2020 [facility] 500 mg 08/09/2020 12:00:00 AM EDT tablet 120 TAKE ONE TABLET BY MOUTH EVERY 6 HOURS NEEDED TAKE ONE TABLET BY MOUTH EVERY 6 HOURS NEEDED SOLD: 08/10/2020 [facility] 0.75 mg/0.5 mL 08/09/2020 12:00:00 AM EDT pen injector 2 INJECT 0.75MG UNDER THE SKIN WEEKLY INJECT 0.75MG UNDER THE SKIN WEEKLY SOLD: 10/11/2020 [facility] 0.75 mg/0.5 mL 08/09/2020 12:00:00 AM EDT pen injector 2 INJECT 0.75MG UNDER THE SKIN WEEKLY INJECT 0.75MG UNDER THE SKIN WEEKLY SOLD: 09/11/2020 [facility] 0.75 mg/0.5 mL 08/09/2020 12:00:00 AM EDT pen injector 2 INJECT 0.75MG UNDER THE SKIN WEEKLY INJECT 0.75MG UNDER THE SKIN WEEKLY SOLD: 08/10/2020 [facility] 1 % 08/06/2020 12:00:00 AM EDT powder 45 APPLY BETWEEN TOES TWO TIMES A DAY APPLY BETWEEN TOES TWO TIMES A DAY SOLD: 08/09/2020 [facility] 40 mg 06/30/2020 12:00:00 AM EDT tablet 30 TAKE ONE TABLET BY MOUTH EVERY MORNING TAKE ONE TABLET BY MOUTH EVERY MORNING SOLD: 07/08/2020 [facility] 1,250 mcg (50,000 unit) 06/30/2020 12:00:00 AM EDT capsule 12 TAKE ONE CAPSULE BY MOUTH ONCE WEEKLY TAKE ONE CAPSULE BY MOUTH ONCE WEEKLY SOLD: 07/08/2020 [facility] Metformin hydrochloride 1000 MG Oral Tablet 1,000 mg METFORM IN HCL 06/28/2020 12:00:00 AM EDT tablet 60 TAKE ONE TABLET BY MOUTH TWICE A DAY TAKE ONE TABLET BY MOUTH TWICE A DAY SOLD: 09/20/2020 [facility] Metformin hydrochloride 1000 MG Oral Tablet 1,000 mg METFORM IN HCL 06/28/2020 12:00:00 AM EDT tablet 60 TAKE ONE TABLET BY MOUTH TWICE A DAY TAKE ONE TABLET BY MOUTH TWICE A DAY SOLD: 06/29/2020 [facility] Metformin hydrochloride 1000 MG Oral Tablet 1,000 mg METFORM IN HCL 06/28/2020 12:00:00 AM EDT tablet 60 TAKE ONE TABLET BY MOUTH TWICE A DAY TAKE ONE TABLET BY MOUTH TWICE A DAY SOLD: 10/25/2020 [facility] Metformin hydrochloride 1000 MG Oral Tablet 1,000 mg METFORM IN HCL 06/28/2020 12:00:00 AM EDT tablet 60 TAKE ONE TABLET BY MOUTH TWICE A DAY TAKE ONE TABLET BY MOUTH TWICE A DAY SOLD: 08/10/2020 [facility] 100 unit/mL (3 mL) 06/09/2020 12:00:00 AM EDT insulin pen 30 INJECT 60 UNITS UNDER THE SKIN EVERY MORNING AND 58 UNITS EVERY EVENING INJECT 60 UNITS UNDER THE SKIN EVERY MORNING AND 58 UNITS EVERY EVENING SOLD: 08/10/2020 [facility] 100 unit/mL (3 mL) 06/09/2020 12:00:00 AM EDT insulin pen 30 INJECT 60 UNITS UNDER THE SKIN EVERY MORNING AND 58 UNITS EVERY EVENING INJECT 60 UNITS UNDER THE SKIN EVERY MORNING AND 58 UNITS EVERY EVENING SOLD: 09/11/2020 [facility] 100 unit/mL (3 mL) 06/09/2020 12:00:00 AM EDT insulin pen 30 INJECT 60 UNITS UNDER THE SKIN EVERY MORNING AND 58 UNITS EVERY EVENING INJECT 60 UNITS UNDER THE SKIN EVERY MORNING AND 58 UNITS EVERY EVENING SOLD: 06/16/2020 [facility] 100 unit/mL (3 mL) 06/09/2020 12:00:00 AM EDT insulin pen 30 INJECT 60 UNITS UNDER THE SKIN EVERY MORNING AND 58 UNITS EVERY EVENING INJECT 60 UNITS UNDER THE SKIN EVERY MORNING AND 58 UNITS EVERY EVENING SOLD: 10/25/2020 [facility] 400 mg 06/04/2020 12:00:00 AM EDT suspension,extended rel recon 1 INJECT INTRAMUSCULARLY ONCE EVERY 4 WEEKS INJECT INTRAMUSCULARLY ONCE EVERY 4 WEEKS SOLD: 07/08/2020 [facility] 400 mg 06/04/2020 12:00:00 AM EDT suspension,extended rel recon 1 INJECT INTRAMUSCULARLY ONCE EVERY 4 WEEKS INJECT INTRAMUSCULARLY ONCE EVERY 4 WEEKS SOLD: 06/04/2020 [facility] 81 mg 04/26/2020 12:00:00 AM EDT tablet,delayed release (DR/EC) 30 TAKE ONE TABLET BY MOUTH EVERY DAY TAKE ONE TABLET BY MOUTH EVERY DAY SOLD: 06/29/2020 [facility] 25 mg 04/26/2020 12:00:00 AM EDT tablet 15 TAKE ONE-HALF TABLET BY MOUTH EVERY MORNING WITH FOOD TAKE ONE-HALF TABLET BY MOUTH EVERY MORNING WITH FOOD SOLD: 09/20/2020 [facility] 25 mg 04/26/2020 12:00:00 AM EDT tablet 15 TAKE ONE-HALF TABLET BY MOUTH EVERY MORNING WITH FOOD TAKE ONE-HALF TABLET BY MOUTH EVERY MORNING WITH FOOD SOLD: 08/10/2020 [facility] 81 mg 04/26/2020 12:00:00 AM EDT tablet,delayed release (DR/EC) 30 TAKE ONE TABLET BY MOUTH EVERY DAY TAKE ONE TABLET BY MOUTH EVERY DAY SOLD: 10/25/2020 [facility] 81 mg 04/26/2020 12:00:00 AM EDT tablet,delayed release (DR/EC) 30 TAKE ONE TABLET BY MOUTH EVERY DAY TAKE ONE TABLET BY MOUTH EVERY DAY SOLD: 05/03/2020 [facility] 25 mg 04/26/2020 12:00:00 AM EDT tablet 15 TAKE ONE-HALF TABLET BY MOUTH EVERY MORNING WITH FOOD TAKE ONE-HALF TABLET BY MOUTH EVERY MORNING WITH FOOD SOLD: 05/03/2020 [facility] 25 mg 04/26/2020 12:00:00 AM EDT tablet 15 TAKE ONE-HALF TABLET BY MOUTH EVERY MORNING WITH FOOD TAKE ONE-HALF TABLET BY MOUTH EVERY MORNING WITH FOOD SOLD: 06/02/2020 [facility] 25 mg 04/26/2020 12:00:00 AM EDT tablet 15 TAKE ONE-HALF TABLET BY MOUTH EVERY MORNING WITH FOOD TAKE ONE-HALF TABLET BY MOUTH EVERY MORNING WITH FOOD SOLD: 10/25/2020 [facility] 81 mg 04/26/2020 12:00:00 AM EDT tablet,delayed release (DR/EC) 30 TAKE ONE TABLET BY MOUTH EVERY DAY TAKE ONE TABLET BY MOUTH EVERY DAY SOLD: 09/20/2020 [facility] 81 mg 04/26/2020 12:00:00 AM EDT tablet,delayed release (DR/EC) 30 TAKE ONE TABLET BY MOUTH EVERY DAY TAKE ONE TABLET BY MOUTH EVERY DAY SOLD: 08/10/2020 [facility] 25 mg 04/26/2020 12:00:00 AM EDT tablet 15 TAKE ONE-HALF TABLET BY MOUTH EVERY MORNING WITH FOOD TAKE ONE-HALF TABLET BY MOUTH EVERY MORNING WITH FOOD SOLD: 06/29/2020 [facility] 50 mg 04/23/2020 12:00:00 AM EDT tablet 60 TAKE ONE TABLET BY MOUTH TWICE A DAY TAKE ONE TABLET BY MOUTH TWICE A DAY SOLD: 09/20/2020 [facility] 50 mg 04/23/2020 12:00:00 AM EDT tablet 60 TAKE ONE TABLET BY MOUTH TWICE A DAY TAKE ONE TABLET BY MOUTH TWICE A DAY SOLD: 08/10/2020 [facility] 50 mg 04/23/2020 12:00:00 AM EDT tablet 60 TAKE ONE TABLET BY MOUTH TWICE A DAY TAKE ONE TABLET BY MOUTH TWICE A DAY SOLD: 06/29/2020 [facility] 50 mg 04/23/2020 12:00:00 AM EDT tablet 60 TAKE ONE TABLET BY MOUTH TWICE A DAY TAKE ONE TABLET BY MOUTH TWICE A DAY SOLD: 10/25/2020 [facility] 50 mg 04/23/2020 12:00:00 AM EDT tablet 60 TAKE ONE TABLET BY MOUTH TWICE A DAY TAKE ONE TABLET BY MOUTH TWICE A DAY SOLD: 06/02/2020 [facility] 50 mg 04/23/2020 12:00:00 AM EDT tablet 60 TAKE ONE TABLET BY MOUTH TWICE A DAY TAKE ONE TABLET BY MOUTH TWICE A DAY SOLD: 05/03/2020 [facility] 50 mg 04/21/2020 12:00:00 AM EDT tablet 30 TAKE 1/2 TO 1 TABLET BY MOUTH ONCE DAILY AT BEDTIME NEEDED FOR INSOMNIA TAKE 1/2 TO 1 TABLET BY MOUTH ONCE DAILY AT BEDTIME NEEDED FOR INSOMNIA SOLD: 05/03/2020 [facility] 100 unit/mL 04/08/2020 12:00:00 AM EDT solution 30 INJECT 2 TO 14 UNITS WITH EACH MEAL PER SLIDING SCALE, MAXIMUM DAILY DOSE = 42 UNITS INJECT 2 TO 14 UNITS WITH EACH MEAL PER SLIDING SCALE, MAXIMUM DAILY DOSE = 42 UNITS SOLD: 04/12/2020 [facility] Ergocalciferol 94281 UNT Oral Capsule [Drisdol] Drisdo l 31883 UNIT Drisdol 78168 UNIT 04/05/2020 12:00:00 AM EDT 1.0 {capsule} acti ve Drisdol 91151 UNIT eCW1 ([facility]) Ergocalciferol 72403 UNT Oral Capsule [Drisdol] Drisdo l 62664 UNIT Drisdol 26424 UNIT 04/05/2020 12:00:00 AM EDT 1.0 {capsule} acti ve Drisdol 26855 UNIT eCW1 ([facility]) 1,250 mcg (50,000 unit) 04/05/2020 12:00:00 AM EDT capsule 12 TAKE ONE CAPSULE BY MOUTH ONCE WEEKLY TAKE ONE CAPSULE BY MOUTH ONCE WEEKLY SOLD: 04/07/2020 [facility] 10 mg 03/23/2020 12:00:00 AM EDT tablet 30 TAKE ONE TABLET BY MOUTH ONCE DAILY TAKE ONE TABLET BY MOUTH ONCE DAILY SOLD: 05/03/2020 [facility] 10 mg 03/23/2020 12:00:00 AM EDT tablet 30 TAKE ONE TABLET BY MOUTH ONCE DAILY TAKE ONE TABLET BY MOUTH ONCE DAILY SOLD: 09/20/2020 [facility] 10 mg 03/23/2020 12:00:00 AM EDT tablet 30 TAKE ONE TABLET BY MOUTH ONCE DAILY TAKE ONE TABLET BY MOUTH ONCE DAILY SOLD: 08/10/2020 [facility] 10 mg 03/23/2020 12:00:00 AM EDT tablet 30 TAKE ONE TABLET BY MOUTH ONCE DAILY TAKE ONE TABLET BY MOUTH ONCE DAILY SOLD: 06/02/2020 [facility] 10 mg 03/23/2020 12:00:00 AM EDT tablet 30 TAKE ONE TABLET BY MOUTH ONCE DAILY TAKE ONE TABLET BY MOUTH ONCE DAILY SOLD: 06/29/2020 [facility] 10 mg 03/23/2020 12:00:00 AM EDT tablet 30 TAKE ONE TABLET BY MOUTH ONCE DAILY TAKE ONE TABLET BY MOUTH ONCE DAILY SOLD: 03/24/2020 [facility] 100 unit/mL 03/16/2020 12:00:00 AM EDT solution 30 INJECT 8 TO 12 UNITS UNDER THE SKIN THREE TIMES A DAY WITH EACH MEAL PER SLIDING SCALE, MAXIMUM DAILY DOSE = 36 UNITS INJECT 8 TO 12 UNITS UNDER THE SKIN THRE E TIMES A DAY WITH EACH MEAL PER SLIDING SCALE, MAXIMUM DAILY DOSE = 36 UNITS SOLD: 03/16/2020 [facility] 32 gauge x 5/32" 03/15/2020 12:00:00 AM EDT needle 60 USE TWO TIMES A DAY WITH BASAGLAR AND VICTOZA USE TWO TIMES A DAY WITH BASAGLAR AND VICTOZA SOLD: 03/15/2020 [facility] BLOOD SUGAR DIAGNOSTIC 03/13/2020 12:00:00 AM EDT strip 100 TEST FOUR TIMES A DAY, BEFORE MEALS AND AT BEDTIME TEST FOUR TIMES A DAY, BEFORE MEALS AND AT BEDTIME SOLD: 10/11/2020 [facility] BLOOD SUGAR DIAGNOSTIC 03/13/2020 12:00:00 AM EDT strip 100 TEST FOUR TIMES A DAY, BEFORE MEALS AND AT BEDTIME TEST FOUR TIMES A DAY, BEFORE MEALS AND AT BEDTIME SOLD: 07/22/2020 [facility] BLOOD SUGAR DIAGNOSTIC 03/13/2020 12:00:00 AM EDT strip 100 TEST FOUR TIMES A DAY, BEFORE MEALS AND AT BEDTIME TEST FOUR TIMES A DAY, BEFORE MEALS AND AT BEDTIME SOLD: 05/20/2020 [facility] BLOOD SUGAR DIAGNOSTIC 03/13/2020 12:00:00 AM EDT strip 100 TEST FOUR TIMES A DAY, BEFORE MEALS AND AT BEDTIME TEST FOUR TIMES A DAY, BEFORE MEALS AND AT BEDTIME SOLD: 03/14/2020 [facility] 0.5 mL 31 gauge x 5/16" 03/12/2020 12:00:00 AM EDT syringe 100 USE THREE TIMES A DAY WITH ADMELOG USE THREE TIMES A DAY WITH ADMELOG SOLD: 03/13/2020 [facility] 0.5 ML dulaglutide 3 MG/ML Auto-Injector [Trulicity] T rulicity 1.5 MG/0.5ML Trulicity 1.5 MG/0.5ML 03/12/2020 12:00:00 AM EDT active Trulicity 1.5 MG/0.5ML eCW1 ([facility]) Tolnaftate 0.01 MG/MG Topical Powder Tolnaftate 1 % Tolnafta te 1 % 03/12/2020 12:00:00 AM EDT active Tolnafta te 1 % eCW1 ([facility]) 1 % 03/12/2020 12:00:00 AM EDT powder 45 APPLY TO AFFECTED AREA(S) BETWEEN TOES TWO TIMES A DAY APPLY TO AFFECTED AREA(S) BETWEEN TOES TWO TIMES A DAY SOLD: 03/13/2020 [facility] 1.5 mg/0.5 mL 03/12/2020 12:00:00 AM EDT pen injector 2 INJECT 1.5MG UNDER THE SKIN ONCE WEEKLY INJECT 1.5MG UNDER THE SKIN ONCE WEEKLY SOLD: 11/23/2020 [facility] Tolnaftate 0.01 MG/MG Topical Powder Tolnaftate 1 % Tolnafta te 1 % 03/12/2020 12:00:00 AM EDT active Tolnafta te 1 % eCW1 ([facility]) 0.5 ML dulaglutide 3 MG/ML Auto-Injector [Trulicity] T rulicity 1.5 MG/0.5ML Trulicity 1.5 MG/0.5ML 03/12/2020 12:00:00 AM EDT active Trulicity 1.5 MG/0.5ML eCW1 ([facility]) 100 unit/mL (3 mL) 03/12/2020 12:00:00 AM EDT insulin pen 30 INJECT 58 UNITS UNDER THE SKIN TWO TIMES A DAY INJECT 58 UNITS UNDER THE SKIN TWO TIMES A DAY SOLD: 03/13/2020 [facility] Tolnaftate 0.01 MG/MG Topical Powder Tolnaftate 1 % Tolnafta te 1 % 03/12/2020 12:00:00 AM EDT active Tolnafta te 1 % eCW1 ([facility]) 0.5 ML dulaglutide 3 MG/ML Auto-Injector [Trulicity] T rulicity 1.5 MG/0.5ML Trulicity 1.5 MG/0.5ML 03/12/2020 12:00:00 AM EDT active Trulicity 1.5 MG/0.5ML eCW1 ([facility]) 1,000 mg 03/12/2020 12:00:00 AM EDT tablet 180 TAKE ONE TABLET BY MOUTH TWICE A DAY WITH MEALS TAKE ONE TABLET BY MOUTH TWICE A DAY WITH MEALS SOLD: 03/13/2020 [facility] 1.5 mg/0.5 mL 03/12/2020 12:00:00 AM EDT pen injector 2 INJECT 1.5MG UNDER THE SKIN ONCE WEEKLY INJECT 1.5MG UNDER THE SKIN ONCE WEEKLY SOLD: 03/13/2020 [facility] 100 unit/mL (3 mL) 03/12/2020 12:00:00 AM EDT insulin pen 30 INJECT 58 UNITS UNDER THE SKIN TWO TIMES A DAY INJECT 58 UNITS UNDER THE SKIN TWO TIMES A DAY SOLD: 04/12/2020 [facility] 400 mg 03/10/2020 12:00:00 AM EDT suspension,extended rel recon 1 INJECT INTRAMUSCULARLY EVERY 4 WEEKS INJECT INTRAMUSCULARLY EVERY 4 WEEKS SOLD: 03/10/2020 [facility] 50 mg 03/10/2020 12:00:00 AM EDT tablet 30 TAKE 1/2 TO 1 TABLET BY MOUTH ONCE DAILY AT BEDTIME NEEDED FOR INSOMNIA TAKE 1/2 TO 1 TABLET BY MOUTH ONCE DAILY AT BEDTIME NEEDED FOR INSOMNIA SOLD: 03/10/2020 [facility] 400 mg 03/10/2020 12:00:00 AM EDT suspension,extended rel recon 1 INJECT INTRAMUSCULARLY EVERY 4 WEEKS INJECT INTRAMUSCULARLY EVERY 4 WEEKS SOLD: 05/14/2020 [facility] 5 mg 02/26/2020 12:00:00 AM EDT tablet 30 TAKE ONE TABLET BY MOUTH EVERY DAY TAKE ONE TABLET BY MOUTH EVERY DAY SOLD: 02/29/2020 [facility] 5 mg 02/26/2020 12:00:00 AM EDT tablet 30 TAKE ONE TABLET BY MOUTH EVERY DAY TAKE ONE TABLET BY MOUTH EVERY DAY SOLD: 10/23/2020 [facility] 100 unit/mL 02/17/2020 12:00:00 AM EDT solution 20 INJECT 8-10 UNITS UNDER THE SKIN PER SLIDING SCALE TWO TIMES A DAY WITH MEALS INJECT 8-10 UNITS UNDER THE SKIN PER SLIDING SCALE TWO TIMES A DAY WITH MEALS SOLD: 02/17/2020 [facility] Admelog 100 UNIT/ML Admelog 100 UNIT/ML 02/16/2020 12:00:00 AM EDT active 10 units eCW1 ([facility]) Admelog 100 UNIT/ML Admelog 100 UNIT/ML 02/16/2020 12:00:00 AM EDT active Admelog 100 UNIT/ML eCW1 ([facility]) Admelog 100 UNIT/ML Admelog 100 UNIT/ML 02/16/2020 12:00:00 AM EDT active Admelog 100 UNIT/ML eCW1 ([facility]) Admelog 100 UNIT/ML Admelog 100 UNIT/ML 02/16/2020 12:00:00 AM EDT active as directed eCW1 ([facility]) Admelog 100 UNIT/ML Admelog 100 UNIT/ML 02/16/2020 12:00:00 AM EDT active 8 to 10 units per sliding scale eCW1 ([facility]) Admelog 100 UNIT/ML Admelog 100 UNIT/ML 02/16/2020 12:00:00 AM EDT active Admelog 100 UNIT/ML eCW1 ([facility]) Admelog 100 UNIT/ML Admelog 100 UNIT/ML 02/16/2020 12:00:00 AM EDT active 8-12units with each meal per sli ding scale dx: e11.65 eCW1 ([facility]) Admelog 100 UNIT/ML Admelog 100 UNIT/ML 02/16/2020 12:00:00 AM EDT active as directed eCW1 ([facility]) 500 mg 02/13/2020 12:00:00 AM EDT tablet 120 TAKE ONE TABLET BY MOUTH EVERY 6 HOURS NEEDED TAKE ONE TABLET BY MOUTH EVERY 6 HOURS NEEDED SOLD: 02/15/2020 [facility] 500 mg 02/13/2020 12:00:00 AM EDT tablet 120 TAKE ONE TABLET BY MOUTH EVERY 6 HOURS NEEDED TAKE ONE TABLET BY MOUTH EVERY 6 HOURS NEEDED SOLD: 04/14/2020 [facility] Acetaminophen 500 MG Oral Tablet Acetaminophen 500 MG 2019 12:00:00 AM EDT 1.0 {tablet_as_needed} suspended Acetaminophen 500 MG eCW1 ([facility]) Diclofenac Sodium 0.01 MG/MG Topical Gel Diclofenac So dium 1 % Diclofenac Sodium 1 % 02/12/2020 12:00:00 AM EDT suspended Diclofenac Sodium 1 % eCW1 ([facility]) Acetaminophen 500 MG Oral Tablet Acetaminophen 500 MG 2019 12:00:00 AM EDT 1.0 {tablet_as_needed} active A cetaminophen 500 MG eCW1 ([facility]) Diclofenac Sodium 0.01 MG/MG Topical Gel Diclofenac So dium 1 % Diclofenac Sodium 1 % 02/12/2020 12:00:00 AM EDT suspended Diclofenac Sodium 1 % eCW1 ([facility]) Acetaminophen 500 MG Oral Tablet Acetaminophen 500 MG 2019 12:00:00 AM EDT 1.0 {tablet_as_needed} active A cetaminophen 500 MG eCW1 ([facility]) Diclofenac Sodium 0.01 MG/MG Topical Gel Diclofenac So dium 1 % Diclofenac Sodium 1 % 02/12/2020 12:00:00 AM EDT suspended Diclofenac Sodium 1 % eCW1 ([facility]) Acetaminophen 500 MG Oral Tablet Acetaminophen 500 MG 2019 12:00:00 AM EDT 1.0 {tablet_as_needed} active A cetaminophen 500 MG eCW1 ([facility]) Acetaminophen 500 MG Oral Tablet Acetaminophen 500 MG 2019 12:00:00 AM EDT 1.0 {tablet_as_needed} active A cetaminophen 500 MG eCW1 ([facility]) Acetaminophen 500 MG Oral Tablet Acetaminophen 500 MG 2019 12:00:00 AM EDT 1.0 {tablet_as_needed} active A cetaminophen 500 MG eCW1 ([facility]) Diclofenac Sodium 0.01 MG/MG Topical Gel Diclofenac So dium 1 % Diclofenac Sodium 1 % 02/12/2020 12:00:00 AM EDT active 4gm to left knee area eCW1 ([facility]) Diclofenac Sodium 0.01 MG/MG Topical Gel Diclofenac So dium 1 % Diclofenac Sodium 1 % 02/12/2020 12:00:00 AM EDT suspended 4gm to left knee DX: M17.12 eCW1 ([facility]) Acetaminophen 500 MG Oral Tablet Acetaminophen 500 MG 2019 12:00:00 AM EDT 1.0 {tablet_as_needed} active A cetaminophen 500 MG eCW1 ([facility]) Diclofenac Sodium 0.01 MG/MG Topical Gel Diclofenac So dium 1 % Diclofenac Sodium 1 % 02/12/2020 12:00:00 AM EDT suspended Diclofenac Sodium 1 % eCW1 ([facility]) Acetaminophen 500 MG Oral Tablet Acetaminophen 500 MG 2019 12:00:00 AM EDT 1.0 {tablet_as_needed} active A cetaminophen 500 MG eCW1 ([facility]) Diclofenac Sodium 0.01 MG/MG Topical Gel Diclofenac So dium 1 % Diclofenac Sodium 1 % 02/12/2020 12:00:00 AM EDT suspended Diclofenac Sodium 1 % eCW1 ([facility]) Diclofenac Sodium 0.01 MG/MG Topical Gel Diclofenac So dium 1 % Diclofenac Sodium 1 % 02/12/2020 12:00:00 AM EDT active 4gm to left knee DX: M17.12 eCW1 ([facility]) Diclofenac Sodium 0.01 MG/MG Topical Gel Diclofenac So dium 1 % Diclofenac Sodium 1 % 02/12/2020 12:00:00 AM EDT suspended Diclofenac Sodium 1 % eCW1 ([facility]) Acetaminophen 500 MG Oral Tablet Acetaminophen 500 MG 2019 12:00:00 AM EDT 1.0 {tablet_as_needed} active A cetaminophen 500 MG eCW1 ([facility]) Acetaminophen 500 MG Oral Tablet Acetaminophen 500 MG 2019 12:00:00 AM EDT active 1 tablet as neede d eCW1 ([facility]) Acetaminophen 500 MG Oral Tablet Acetaminophen 500 MG 2019 12:00:00 AM EDT 1.0 {tablet_as_needed} active A cetaminophen 500 MG eCW1 ([facility]) Diclofenac Sodium 0.01 MG/MG Topical Gel Diclofenac So dium 1 % Diclofenac Sodium 1 % 02/12/2020 12:00:00 AM EDT suspended Diclofenac Sodium 1 % eCW1 ([facility]) Acetaminophen 500 MG Oral Tablet Acetaminophen 500 MG 2019 12:00:00 AM EDT 1.0 {tablet_as_needed} active A cetaminophen 500 MG eCW1 ([facility]) Acetaminophen 500 MG Oral Tablet Acetaminophen 500 MG 2019 12:00:00 AM EDT suspended 1 tablet as ne eded eCW1 ([facility]) Acetaminophen 500 MG Oral Tablet Acetaminophen 500 MG 2019 12:00:00 AM EDT 1.0 {tablet_as_needed} active A cetaminophen 500 MG eCW1 ([facility]) Diclofenac Sodium 0.01 MG/MG Topical Gel Diclofenac So dium 1 % Diclofenac Sodium 1 % 02/12/2020 12:00:00 AM EDT suspended Diclofenac Sodium 1 % eCW1 ([facility]) 400 mg 02/11/2020 12:00:00 AM EDT suspension,extended rel recon 1 INJECT INTRAMUSCULARLY ONCE MONTHLY INJECT INTRAMUSCULARLY ONCE MONTHLY SOLD: 02/11/2020 [facility] 50 mg 02/11/2020 12:00:00 AM EDT tablet 30 TAKE 1/2 TO 1 TABLET BY MOUTH ONCE DAILY AT BEDTIME NEEDED FOR INSOMNIA TAKE 1/2 TO 1 TABLET BY MOUTH ONCE DAILY AT BEDTIME NEEDED FOR INSOMNIA SOLD: 02/11/2020 [facility] 400 mg 02/11/2020 12:00:00 AM EDT suspension,extended rel recon 1 INJECT INTRAMUSCULARLY ONCE MONTHLY INJECT INTRAMUSCULARLY ONCE MONTHLY SOLD: 04/12/2020 [facility] doxycycline hyclate 100 MG Oral Tablet Doxycycline Hyc late 100 MG Doxycycline Hyclate 100 MG 01/20/2020 12:00:00 AM EDT active 1 tablet eCW1 ([facility]) 100 mg 01/20/2020 12:00:00 AM EDT capsule 14 TAKE ONE CAPSULE BY MOUTH TWICE A DAY FOR 7 DAYS TAKE ONE CAPSULE BY MOUTH TWICE A DAY FOR 7 DAYS SOLD: 01/20/2020 [facility] 5 mg 01/16/2020 12:00:00 AM EDT tablet 90 TAKE ONE TABLET BY MOUTH EVERY DAY TAKE ONE TABLET BY MOUTH EVERY DAY SOLD: 01/16/2020 [facility] Amlodipine 5 MG Oral Tablet AmLODIPine Besylate 5 MG AmLODIP ine Besylate 5 MG 01/16/2020 12:00:00 AM EDT active 1 tablet eCW1 ([facility]) Amlodipine 5 MG Oral Tablet AmLODIPine Besylate 5 MG AmLODIP ine Besylate 5 MG 01/16/2020 12:00:00 AM EDT 1.0 {tablet} active AmLODIPine Besylate 5 MG eCW1 ([facility]) Amlodipine 5 MG Oral Tablet AmLODIPine Besylate 5 MG AmLODIP ine Besylate 5 MG 01/16/2020 12:00:00 AM EDT active 1 tablet eCW1 ([facility]) 50 mg 01/14/2020 12:00:00 AM EDT tablet 30 TAKE 1/2 TO 1 TABLET BY MOUTH AT BEDTIME NEEDED FOR INSOMNIA TAKE 1/2 TO 1 TABLET BY MOUTH AT BEDTIME NEEDED FOR INSOMNIA SOLD: 01/14/2020 [facility] BLOOD-GLUCOSE METER 12/31/2019 12:00:00 AM EDT misc 1 USE DIRECTED TWO TIMES A DAY USE DIRECTED TWO TIMES A DAY SOLD: 12/31/2019 [facility] 30 gauge 12/31/2019 12:00:00 AM EDT misc 100 USE TWO TIMES A DAY AND NEEDED USE TWO TIMES A DAY AND NEEDED SOLD: 12/31/2019 [facility] BLOOD SUGAR DIAGNOSTIC 12/31/2019 12:00:00 AM EDT strip 100 TEST TWO TIMES A DAY AND NEEDED TEST TWO TIMES A DAY AND NEEDED SOLD: 12/31/2019 [facility] BLOOD SUGAR DIAGNOSTIC 12/31/2019 12:00:00 AM EDT strip 100 TEST TWO TIMES A DAY AND NEEDED TEST TWO TIMES A DAY AND NEEDED SOLD: 02/18/2020 [facility] 100 unit/mL (3 mL) 12/25/2019 12:00:00 AM EDT insulin pen 30 INJECT 58 UNITS UNDER THE SKIN TWO TIMES A DAY INJECT 58 UNITS UNDER THE SKIN TWO TIMES A DAY SOLD: 02/08/2020 [facility] 1,250 mcg (50,000 unit) 12/25/2019 12:00:00 AM EDT capsule 4 TAKE ONE CAPSULE BY MOUTH ONCE WEEKLY TAKE ONE CAPSULE BY MOUTH ONCE WEEKLY SOLD: 11/08/2020 [facility] 1,250 mcg (50,000 unit) 12/25/2019 12:00:00 AM EDT capsule 4 TAKE ONE CAPSULE BY MOUTH ONCE WEEKLY TAKE ONE CAPSULE BY MOUTH ONCE WEEKLY SOLD: 10/11/2020 [facility] 100 unit/mL (3 mL) 12/25/2019 12:00:00 AM EDT insulin pen 30 INJECT 58 UNITS UNDER THE SKIN TWO TIMES A DAY INJECT 58 UNITS UNDER THE SKIN TWO TIMES A DAY SOLD: 12/25/2019 [facility] 1,250 mcg (50,000 unit) 12/25/2019 12:00:00 AM EDT capsule 4 TAKE ONE CAPSULE BY MOUTH ONCE WEEKLY TAKE ONE CAPSULE BY MOUTH ONCE WEEKLY SOLD: 02/02/2020 [facility] 1,250 mcg (50,000 unit) 12/25/2019 12:00:00 AM EDT capsule 4 TAKE ONE CAPSULE BY MOUTH ONCE WEEKLY TAKE ONE CAPSULE BY MOUTH ONCE WEEKLY SOLD: 12/25/2019 [facility] 0.75 mg/0.5 mL 11/21/2019 12:00:00 AM EST pen injector 2 INJECT ONE PEN UNDER THE SKIN ONCE WEEKLY INJECT ONE PEN UNDER THE SKIN ONCE WEEKLY SOLD: 04/18/2020 [facility] 0.75 mg/0.5 mL 11/21/2019 12:00:00 AM EST pen injector 2 INJECT ONE PEN UNDER THE SKIN ONCE WEEKLY INJECT ONE PEN UNDER THE SKIN ONCE WEEKLY SOLD: 06/29/2020 [facility] 0.75 mg/0.5 mL 11/21/2019 12:00:00 AM EST pen injector 2 INJECT ONE PEN UNDER THE SKIN ONCE WEEKLY INJECT ONE PEN UNDER THE SKIN ONCE WEEKLY SOLD: 06/04/2020 [facility] 0.75 mg/0.5 mL 11/21/2019 12:00:00 AM EST pen injector 2 INJECT ONE PEN UNDER THE SKIN ONCE WEEKLY INJECT ONE PEN UNDER THE SKIN ONCE WEEKLY SOLD: 12/14/2019 [facility] 0.75 mg/0.5 mL 11/21/2019 12:00:00 AM EST pen injector 2 INJECT ONE PEN UNDER THE SKIN ONCE WEEKLY INJECT ONE PEN UNDER THE SKIN ONCE WEEKLY SOLD: 11/21/2019 [facility] 0.75 mg/0.5 mL 11/21/2019 12:00:00 AM EST pen injector 2 INJECT ONE PEN UNDER THE SKIN ONCE WEEKLY INJECT ONE PEN UNDER THE SKIN ONCE WEEKLY SOLD: 01/13/2020 [facility] 50 mg 11/19/2019 12:00:00 AM EST tablet 30 TAKE 1/2 TO 1 TABLET BY MOUTH ONCE DAILY AT BEDTIME NEEDED FOT INSOMNIA TAKE 1/2 TO 1 TABLET BY MOUTH ONCE DAILY AT BEDTIME NEEDED FOT INSOMNIA SOLD: 11/20/2019 [facility] 1,250 mcg (50,000 unit) 11/17/2019 12:00:00 AM EST capsule 4 TAKE ONE CAPSULE BY MOUTH ONCE WEEKLY TAKE ONE CAPSULE BY MOUTH ONCE WEEKLY SOLD: 11/20/2019 [facility] 40 mg 11/10/2019 12:00:00 AM EST tablet 30 TAKE ONE TABLET BY MOUTH EVERY MORNING TAKE ONE TABLET BY MOUTH EVERY MORNING SOLD: 05/03/2020 [facility] 1,000 mg 11/10/2019 12:00:00 AM EST tablet 60 TAKE ONE TABLET BY MOUTH TWICE A DAY WITH MEALS TAKE ONE TABLET BY MOUTH TWICE A DAY WITH MEALS SOLD: 03/04/2020 [facility] 1,000 mg 11/10/2019 12:00:00 AM EST tablet 60 TAKE ONE TABLET BY MOUTH TWICE A DAY WITH MEALS TAKE ONE TABLET BY MOUTH TWICE A DAY WITH MEALS SOLD: 11/10/2019 [facility] 40 mg 11/10/2019 12:00:00 AM EST tablet 30 TAKE ONE TABLET BY MOUTH EVERY MORNING TAKE ONE TABLET BY MOUTH EVERY MORNING SOLD: 12/09/2019 [facility] 40 mg 11/10/2019 12:00:00 AM EST tablet 30 TAKE ONE TABLET BY MOUTH EVERY MORNING TAKE ONE TABLET BY MOUTH EVERY MORNING SOLD: 03/24/2020 [facility] 40 mg 11/10/2019 12:00:00 AM EST tablet 30 TAKE ONE TABLET BY MOUTH EVERY MORNING TAKE ONE TABLET BY MOUTH EVERY MORNING SOLD: 06/02/2020 [facility] 1,000 mg 11/10/2019 12:00:00 AM EST tablet 60 TAKE ONE TABLET BY MOUTH TWICE A DAY WITH MEALS TAKE ONE TABLET BY MOUTH TWICE A DAY WITH MEALS SOLD: 12/09/2019 [facility] 40 mg 11/10/2019 12:00:00 AM EST tablet 30 TAKE ONE TABLET BY MOUTH EVERY MORNING TAKE ONE TABLET BY MOUTH EVERY MORNING SOLD: 02/25/2020 [facility] 40 mg 11/10/2019 12:00:00 AM EST tablet 30 TAKE ONE TABLET BY MOUTH EVERY MORNING TAKE ONE TABLET BY MOUTH EVERY MORNING SOLD: 11/10/2019 [facility] 400 mg 11/09/2019 12:00:00 AM EST suspension,extended rel recon 1 INJECT INTRAMUSCULARLY EVERY 4 WEEKS INJECT INTRAMUSCULARLY EVERY 4 WEEKS SOLD: 11/10/2019 [facility] 400 mg 11/09/2019 12:00:00 AM EST suspension,extended rel recon 1 INJECT INTRAMUSCULARLY EVERY 4 WEEKS INJECT INTRAMUSCULARLY EVERY 4 WEEKS SOLD: 12/14/2019 [facility] 875-125 mg 10/21/2019 12:00:00 AM EST tablet 20 TAKE ONE TABLET BY MOUTH EVERY 12 HOURS FOR 10 DAYS TAKE ONE TABLET BY MOUTH EVERY 12 HOURS FOR 10 DAYS SOLD: 10/21/2019 [facility] Amoxicillin 875 MG / Clavulanate 125 MG Oral Tablet Amoxicillin-Pot Clavulanate 875-125 MG Amoxicillin-Pot Clavulanate 875-125 MG 10/21/2019 12:00:00 AM ES T suspended 1 tablet eCW1 ([facility]) Amoxicillin 875 MG / Clavulanate 125 MG Oral Tablet Amoxicillin-Pot Clavulanate 875-125 MG Amoxicillin-Pot Clavulanate 875-125 MG 10/21/2019 12:00:00 AM ES T 1.0 {tablet} suspended Amoxicillin-Pot C lavulanate 875-125 MG eCW1 ([facility]) Amoxicillin 875 MG / Clavulanate 125 MG Oral Tablet Amoxicillin-Pot Clavulanate 875-125 MG Amoxicillin-Pot Clavulanate 875-125 MG 10/21/2019 12:00:00 AM ES T active 1 tablet eCW1 ([facility]) 400 mg 10/14/2019 12:00:00 AM EST suspension,extended rel recon 1 INJECT INTRAMUSCULARLY EVERY 4 WEEKS INJECT INTRAMUSCULARLY EVERY 4 WEEKS SOLD: 01/13/2020 [facility] 400 mg 10/14/2019 12:00:00 AM EST suspension,extended rel recon 1 INJECT INTRAMUSCULARLY EVERY 4 WEEKS INJECT INTRAMUSCULARLY EVERY 4 WEEKS SOLD: 10/15/2019 [facility] 0.5 ML dulaglutide 1.5 MG/ML Auto-Injector [Trulicity] Trulicity 0.75 MG/0.5ML Trulicity 0.75 MG/0.5ML 10/09/2019 12:00:00 AM EST active 0.75mg eCW1 ([facility]) 0.75 mg/0.5 mL 10/09/2019 12:00:00 AM EST pen injector 2 INJECT 0.75MG ONCE A WEEK UNDER THE SKIN INJECT 0.75MG ONCE A WEEK UNDER THE SKIN SOLD: 10/09/2019 [facility] 0.5 ML dulaglutide 1.5 MG/ML Auto-Injector [Trulicity] Trulicity 0.75 MG/0.5ML Trulicity 0.75 MG/0.5ML 10/09/2019 12:00:00 AM EST active 0.75mg eCW1 ([facility]) 0.5 ML dulaglutide 1.5 MG/ML Auto-Injector [Trulicity] Trulicity 0.75 MG/0.5ML Trulicity 0.75 MG/0.5ML 10/09/2019 12:00:00 AM EST active 0.75mg eCW1 ([facility]) 0.5 ML dulaglutide 1.5 MG/ML Auto-Injector [Trulicity] Trulicity 0.75 MG/0.5ML Trulicity 0.75 MG/0.5ML 10/09/2019 12:00:00 AM EST active 0.75mg eCW1 ([facility]) 81 mg 09/17/2019 12:00:00 AM EST tablet,delayed release (DR/EC) 30 TAKE ONE TABLET BY MOUTH EVERY DAY TAKE ONE TABLET BY MOUTH EVERY DAY SOLD: 10/15/2019 [facility] 50 mg 09/17/2019 12:00:00 AM EST tablet 60 TAKE ONE TABLET BY MOUTH TWICE A DAY TAKE ONE TABLET BY MOUTH TWICE A DAY SOLD: 12/09/2019 [facility] 50 mg 09/17/2019 12:00:00 AM EST tablet 42 TAKE ONE TABLET BY MOUTH TWICE A DAY TAKE ONE TABLET BY MOUTH TWICE A DAY SOLD: 04/07/2020 [facility] 81 mg 09/17/2019 12:00:00 AM EST tablet,delayed release (DR/EC) 30 TAKE ONE TABLET BY MOUTH EVERY DAY TAKE ONE TABLET BY MOUTH EVERY DAY SOLD: 11/10/2019 [facility] 81 mg 09/17/2019 12:00:00 AM EST tablet,delayed release (DR/EC) 30 TAKE ONE TABLET BY MOUTH EVERY DAY TAKE ONE TABLET BY MOUTH EVERY DAY SOLD: 12/09/2019 [facility] 50 mg 09/17/2019 12:00:00 AM EST tablet 40 TAKE ONE TABLET BY MOUTH TWICE A DAY TAKE ONE TABLET BY MOUTH TWICE A DAY SOLD: 03/08/2020 [facility] 50 mg 09/17/2019 12:00:00 AM EST tablet 60 TAKE ONE TABLET BY MOUTH TWICE A DAY TAKE ONE TABLET BY MOUTH TWICE A DAY SOLD: 11/10/2019 [facility] 81 mg 09/17/2019 12:00:00 AM EST tablet,delayed release (DR/EC) 30 TAKE ONE TABLET BY MOUTH EVERY DAY TAKE ONE TABLET BY MOUTH EVERY DAY SOLD: 02/25/2020 [facility] 81 mg 09/17/2019 12:00:00 AM EST tablet,delayed release (DR/EC) 30 TAKE ONE TABLET BY MOUTH EVERY DAY TAKE ONE TABLET BY MOUTH EVERY DAY SOLD: 03/24/2020 [facility] 50 mg 09/17/2019 12:00:00 AM EST tablet 60 TAKE ONE TABLET BY MOUTH TWICE A DAY TAKE ONE TABLET BY MOUTH TWICE A DAY SOLD: 10/15/2019 [facility] 32 gauge x 5/32" 08/22/2019 12:00:00 AM EST needle 100 USE DAILY WITH BASAGLAR AND VICTOZA USE DAILY WITH BASAGLAR AND VICTOZA SOLD: 11/10/2019 [facility] 25 mg 08/12/2019 12:00:00 AM EDT tablet 15 TAKE 1/2 TABLET BY MOUTH EVERY MORNING WITH FOOD TAKE 1/2 TABLET BY MOUTH EVERY MORNING WITH FOOD SOLD: 03/24/2020 [facility] 25 mg 08/12/2019 12:00:00 AM EDT tablet 15 TAKE 1/2 TABLET BY MOUTH EVERY MORNING WITH FOOD TAKE 1/2 TABLET BY MOUTH EVERY MORNING WITH FOOD SOLD: 02/25/2020 [facility] 25 mg 08/12/2019 12:00:00 AM EDT tablet 15 TAKE 1/2 TABLET BY MOUTH EVERY MORNING WITH FOOD TAKE 1/2 TABLET BY MOUTH EVERY MORNING WITH FOOD SOLD: 11/10/2019 [facility] 25 mg 08/12/2019 12:00:00 AM EDT tablet 15 TAKE 1/2 TABLET BY MOUTH EVERY MORNING WITH FOOD TAKE 1/2 TABLET BY MOUTH EVERY MORNING WITH FOOD SOLD: 12/09/2019 [facility] 25 mg 08/12/2019 12:00:00 AM EDT tablet 15 TAKE 1/2 TABLET BY MOUTH EVERY MORNING WITH FOOD TAKE 1/2 TABLET BY MOUTH EVERY MORNING WITH FOOD SOLD: 10/15/2019 [facility] 10 mg 07/17/2019 12:00:00 AM EDT tablet 30 TAKE ONE TABLET BY MOUTH EVERY DAY TAKE ONE TABLET BY MOUTH EVERY DAY SOLD: 11/10/2019 [facility] 10 mg 07/17/2019 12:00:00 AM EDT tablet 30 TAKE ONE TABLET BY MOUTH EVERY DAY TAKE ONE TABLET BY MOUTH EVERY DAY SOLD: 12/09/2019 [facility] 10 mg 07/17/2019 12:00:00 AM EDT tablet 30 TAKE ONE TABLET BY MOUTH EVERY DAY TAKE ONE TABLET BY MOUTH EVERY DAY SOLD: 02/25/2020 [facility] 10 mg 07/17/2019 12:00:00 AM EDT tablet 30 TAKE ONE TABLET BY MOUTH EVERY DAY TAKE ONE TABLET BY MOUTH EVERY DAY SOLD: 10/15/2019 [facility] 40 mg 07/08/2019 12:00:00 AM EDT tablet 30 TAKE ONE TABLET BY MOUTH ONCE DAILY TAKE ONE TABLET BY MOUTH ONCE DAILY SOLD: 11/12/2019 [facility] 40 mg 07/08/2019 12:00:00 AM EDT tablet 30 TAKE ONE TABLET BY MOUTH ONCE DAILY TAKE ONE TABLET BY MOUTH ONCE DAILY SOLD: 02/25/2020 [facility] 100 unit/mL (3 mL) 05/13/2019 12:00:00 AM EDT insulin pen 30 INJECT 58 UNITS UNDER THE SKIN TWO TIMES A DAY INJECT 58 UNITS UNDER THE SKIN TWO TIMES A DAY SOLD: 10/04/2019 [facility] 40 mg 04/25/2019 12:00:00 AM EDT tablet 30 TAKE ONE TABLET BY MOUTH EVERY MORNING TAKE ONE TABLET BY MOUTH EVERY MORNING SOLD: 10/15/2019 [facility] 1,000 mg 04/25/2019 12:00:00 AM EDT tablet 60 TAKE ONE TABLET BY MOUTH TWICE A DAY WITH MEALS TAKE ONE TABLET BY MOUTH TWICE A DAY WITH MEALS SOLD: 10/15/2019 [facility] 32 gauge x 5/32" 04/23/2019 12:00:00 AM EDT needle 30 USE ONE EVERY DAY WITH VICTOZA INJECTION USE ONE EVERY DAY WITH VICTOZA INJECTION SOLD: 02/25/2020 [facility] Insurance Providers Payer name Policy type / Coverage type Policy ID Covered green party ID Covered green party's relationship to stokes Policy Stokes Plan Information [facility] [id number] Managed Care [facility] Community Plan P [id number] S [id number] Medicaid S [id number] S [id number] Managed Care [place] P [id number] S [id number] [facility] [id number] S [id number] [place] O [id number] S [id number] AMANDO [id number] SP [id number] ANSI-Commercial [id number] ANSI-Commercial [id number] AMANDO [id number] SP [id number] ANSI-Commercial [id number] ANSI-Commercial [id number] ANSI-Commercial [id number] ANSI-Commercial [id number] ANSI-Commercial [id number] ANSI-Commercial [id number] ANSI-Commercial [id number] ANSI-Commercial [id number] ANSI-Commercial [id number] [facility] Commercial [id number] Self [id number] ANSI-Commercial [id number] ANSI-Commercial [id number] ANSI-Commercial [id number] ANSI-Commercial [id number] ANSI-Commercial [id number] ANSI-Commercial [id number] ANSI-Commercial [id number] ANSI-Commercial [id number] ANSI-Commercial [id number] ANSI-Commercial [id number] ANSI-Commercial [id number] ANSI-Commercial [id number] ANSI-Commercial [id number]-n83r-[id number] [id number]-h76l-[id number] ANSI-Commercial [id number] ANSI-Commercial [id number] ANSI-Commercial [id number]-[id number] ANSI-Commercial [id number] ANSI-Commercial [id number] [id number]-[id number] ANSI-Commercial [id number] ANSI-Commercial [id number] ANSI-Commercial [id number] ANSI-Commercial [id number] ANSI-Commercial [id number] ANSI-Commercial [id number] Medicaid S [id number] S [id number] [facility] Commercial [id number] Self [id number] Managed Care [facility] P [id number] S [id number] AMANDO I [id number] Self [id number] [facility] Commercial [id number] Self [id number] AMANDO [id number] SP [id number] AMANDO [id number] SP [id number] AMANDO [id number] SP [id number] [facility] Commercial Self Managed Care [facility] P [id number] S [id number] Medicaid S [id number] S [id number] Managed Care - Community Plan [facility] P [id number] S [id number] [facility] [id number] SP [id number] AM[facility] CARE [facility] P [id number] S [id number] Medicaid S [id number] S [id number] AM[place]O [id number] SP [id number] MEDICAID [id number] SP [id number] SELF PAY UNAVAILABLE [place]NA[place] BLE MEDICAID [facility] [id number] SP [id number] MEDICAID [id number] SP [id number] MEDICAID [facility] [id number] SP [id number] MEDICAID [place] [id number] SP [id number] Problems, Conditions, and Diagnoses Code Display Name Description Problem Type Effective Dates Data Source(s) 502483797 Clinical finding Clinical Finding Problem 07/29/2020 05 :31:24 PM EDT JEREMY ([facility]) 133870865 SNOMED CT Concept SNOMED CT Concept Problem 07/29 05:31:24 PM EDT EASLEY ([facility]) 04763266 Depressive disorder Depressive Disorder Problem 1 05:31:24 PM EDT JEREMY ([facility]) 525.10 Teeth extraction Teeth extraction 07/26/2020 12 :02:[address] [facility] Z79.4 [id number] skilled nursing (current) use of insulin [facility] 03/12/2020 12:00:00 AM EDT eCW1 ([facility]) Z79.4 464062546 skilled nursing (current) use of insulin [facility] 03/12/2020 12:00:00 AM EDT eCW1 ([facility]) M17.12 [id number] Osteoarthritis of le ft knee, unspecified osteoarthritis type Problem 02/16/2020 12:00:00 AM EDT eCW1 ([facility]) M19.90 1006309 Arthritis Problem 02/16/2020 12:00:00 AM ED T eCW1 ([facility]) M17.12 [id number] Osteoarthritis of le ft knee, unspecified osteoarthritis type Problem 02/16/2020 12:00:00 AM EDT eCW1 ([facility]) M19.90 1884989 Arthritis Problem 02/16/2020 12:00:00 AM ED T eCW1 ([facility]) M54.42 401690528 Acute bilateral low back pain with left-s ided sciatica Problem 02/12/2020 12:00:00 AM EDT eCW1 ([facility]) M54.42 812323818 Acute bilateral low back pain with left-s ided sciatica Problem 02/12/2020 12:00:00 AM EDT eCW1 ([facility]) Surgeries/Procedures Procedure Description Date Indications Data Source(s) NO CHARGE VISIT 03/01/2020 12:00:00 AM EDT eCW1 ([facility]) Results ID Date Data Source [id number] 10/25/2020 10:04:00 AM EST JEREMY ([facility]) Name Value Range Interpretation Code Description Data Yesenia rce(s) Supporting Document(s) sars-cov-2 negative negative normal Sars-cov-2 EASLEY ([facility]) ID Date Data Source [id number] 10/25/2020 09:03:00 AM EST [facility] Name Value Range Interpretation Code Description Data Yesenia rce(s) Supporting Document(s) SARS coronavirus 2 RdRp gene [Presence] in Respiratory specimen by KITTY with probe detection Not detected [facility] This lab was ordered by [facility] and reported by [facility]. ID Date Data Source [id number] 07/26/2020 08:23:[address] [facility] Patient History Medical History:Anxiety DisorderCOPDDepressionDiabetes, Type 2Seizure as childSurgical History:stitches left knee.Tonsillectomy Cancer left calf removed 2013Family History:FH StrokeFH Other CancerFH Psychiatric CareSocial/Personal History:Smoking History:Patient has never smoked. Chief Complaint: Routine CleaningVisit Type: ExamCurrent Problems: DENTAL CARIES EXTENDING INTO PULP (ICD-521.03) (DMX53-O85.63)Health Screening (ICD-V70.0) (UTO43-Z59.9)Neck pain-cervialgia (ICD-723.1) (ZYS67-L00.2)Neuralgia (ICD-729.2) (DBF97-B08.2)shoulder pain (ICD-719.41) (HDI12-Z30.519)Sciatica (ICD-724.3) (WGR04-F94.30)Hip pain (ICD-719.45) (XLK13-B97.559)Health Screening (ICD-V70.0) (FSV93-U54.9)VENOUS INSUFFICIENCY, MILD (ICD-459.81) (DHX53-V62.2)DIABETES MELLITUS, WITH VASCULAR COMPLICATIONS (ICD-250.70) (JUU75-F15.59)SLEEP APNEA (ICD-780.57) (JLW03-F56.30)ANTICOAGULATION RX (ICD-V58.61) (ICD10- Z79.01)CONTUSION OF HIP (ICD-924.01) (VFZ13-M60.00)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) (SOE54-F25.9)OTHER NONSPECIFIC ABNORMAL SERUM ENZYME LEVELS (ICD-790.5) (NCU14-P79.8)COUGH (ICD-786.2) (HXS43-T37)ALLERGIC RHINITIS (ICD-477.9) (JAB80-W18.9)CANDIDIASIS, ORAL (ICD-112.0) (AMB37-B82.0)SPE CIAL SCREENING FOR MALIGNANT NEOPLASMS COLON (ICD-V76.51) (ICD10- Z12.11)DERMATOPHYTOSIS OF FOOT (ICD-110.4) (SBY42-U41.3)SPECIAL SCREENING MALIGNANT NEOPLASM OF PROSTATE (ICD-V76.44) (OZC38-S42.5)PHYSICAL EXAMINATION (ICD-V70.0) (OPT31-I44.00)OBESITY (ICD-278.00) (UIF40-C25.9)UPPER RESPIRATORY INFECTION (ICD-465.9) (XEJ98-X72.9)DERMATITIS, SEBORRHEIC (ICD-690.10) (ICD10- L21.9)VITAMIN D DEFICIENCY (ICD-268.9) (MCJ43-W53.9)UNSPECIFIED ARTHROPATHY ANKLE AND FOOT (ICD-716.97) (FIH78-I12.9)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) (FTH60-V46.0)HYPERTENSION (ICD-401.9) (TRN58-G81) PSYCHIATRIC CARE (ICD-V17.0) (HON80-B90.8)FH OTHER CANCER (ICD-V16.9) (OYV86-G17.9)FH STROKE (ICD-V17.1) (SVB15-J18.3)FH DIABETES (ICD-V18.0) (NYI14-D59.3)FH DEPRESSION (ICD-V17.0) (WNO37-L55.8)FH OF ANXIETY (ICD-V17.0) (RPF82-S08.8)DIABETES, TYPE 2 (ICD- 250.00) (YBV32-D67.9)DEPRESSION (ICD-311) (HIL10-Q79.9)ANXIETY DISORDER (ICD- 300.00) (CAR55-V25.9)Problem list reviewed during this update.Current Medications: LANCETS (LANCETS) use with kit to test 3 times daily DX 250.00BLOOD GLUCOSE TEST IN VITRO STRIP (GLUCOSE BLOOD) use with test kit to test 3 times daily DX 250.00BLOOD GLUCOSE MONITOR SYSTEM w/Device KIT (BLOOD GLUCOSE M ONITORING SUPPL) use to test 3 times daily DX 250.00NAPROSYN 500 MG ORAL TABLET (NAPROXEN) 1 pill po bidPROAIR HFA 108 (90 Base) MCG/ACT INHALATION AEROSOL SOLUTION (ALBUTEROL SULFATE) 2 puffs q6hr prnMETOPROLOL TARTRATE 50 MG ORAL TABLET (METOPROLOL TARTRATE) 1 pill po dailyPEN NEEDLES 3/16" 31G X 5 MM (INSULIN PEN NEEDLE) use as directed with insulin pen DX 250.02INSULIN SYRINGE 31G X 5/16" 1 ML (INSULIN SYRINGE-NEEDLE U-100) HUMALOG 100 UNIT/ML SUBCUTANEOUS SOLUTION (INSULIN LISPRO (HUMAN)) 20 u tidADULT ASPIRIN EC LOW STRENGTH 81 MG ORAL TABLET DELAYED RELEASE (ASPIRIN) 1 pill po dailyLANTUS SOLOSTAR 100 UNIT/ML SUBCUTANEOUS SOLUTION PEN-INJECTOR (INSULIN GLARGINE) inject 110 units sq at night- Dx code 250.02ALCOHOL WIPES PAD (ALCOHOL SWABS) test blood glucose TID Dx code 250.00LORADAMED 10 MG ORAL TABLET (LORATADINE) 1 po qdIBUPROFEN 800 MG ORAL TABLET (IBUPROFEN) 1 po q8hr prnABILIFY 20 MG ORAL TABLET (ARIPIPRAZOLE) 1 po dailyCYMBALTA 60 MG ORAL CAPSULE DELAYED RELEASE PARTICLES (DULOXETINE HCL) 1 po dailyLISINOPRIL 40 MG ORAL TABLET (LISINOPRIL) 1 po dailyMETFORMIN HCL 1000 MG ORAL TABLET (METFORMIN HCL) 1 po bidAllergy list reviewed during this update.No known allergies.Past Medical History:(reviewed - no changes required) Anxiety DisorderCOPDDepressionDiabetes, Type 2Seizure as child Dental Chart: Procedures:Type - CDT Code - Description B - (D0120) Periodic oral evaluation - established patient (Performed by Maru MOOREMontserrat) Treatments:Type - CDT Code - Description T - (D7140) Extraction, erupted tooth or exposed root (elevation and/or forceps removal) on Tooth # 7 (Performed by Maru MOOREMontserrat) T - (D5110) Complete denture - maxillary on Tooth # 1,2,3,4,5,6,7,8,9,10,11,12,13,14,15,16 (Performed by Maru MOOREMontserrat) T - (D7140) Extraction, erupted tooth or exposed root (elevation and/or forceps removal) on Tooth # 4 (Performed by Maru MOOREMontserrat) T - (D7140) Extraction, erupted tooth or exposed root (elevation and/ or forceps removal) on Tooth # 9 (Performed by Callejas RDMontserrat) T - (D7140) Extraction, erupted tooth or exposed root (elevation and/or forceps removal) on Tooth # 8 (Performed by Maru MOOREMontserrta) T - (D7140) Extraction, erupted tooth or exposed root (elevation and/or forceps removal) on Tooth # 14 (Performed by Callejas RDMontserrat) T - (D7140) Extraction, erupted tooth or exposed root (elevation and/or forceps removal) on Tooth # 10 (Performed by Maru MOOREMontserrat) T - (D5120) Complete denture - mandibular on Tooth # 17,18,19,20,21,22,23,24,25,26,27,28,29,30,31,32 (Performed by Maru MOOREMontserrat) T - (D7140) Extraction, erupted tooth or exposed root (elevation and/or forceps removal) on Tooth # 13 (Performed by Montserrat Callejas RDH) T - (D7140) Extraction, erupted tooth or exposed root (elevation and/or forceps removal) on Tooth # 3 (Performed by Montserrat Callejas RDH) Existing:Type - CDT Code - Description[E] Missing - [place] and Root On #11 Surface I Region XR, #12 Surface O Region XR, #18 Surface O Region XR, #21 Surface O Region XR, #22 Surface I Region XR, #23 Surface I Region XR, #24 Surface I Region XR, #25 Surface I Region XR, #26 Surface I Region XR, #27 Surface I Region XR, #28 Surface O Region XR, #29 Surface O Region XR, #32 Surface O Region XR Chart Notes:jm (Jul 26 2020 9:40AM): [facility](-). CC: I want dentures. Reviewed Xrays. Exam: caries noted on remaining maxillary dentition, requiring remaining max dentition to be extractedOCS: WNL, IO/ EO completed, No significant hard findings upon clinical exam.Additional PPE requirements due to COVID-19 in the dental setting, N95, surgical mask, hair covering, gown and shieldPt was cooperative. Recommended patient have alveoplasty completed in the mandibular and maxillary arch. Explained to patient that once teeth are extracted and alveoplasty is completed we will see him about 3 months after to check healing and see if we can begin denture process.OHI given Referral: N/A NV: healing checkFowMontserrat flores RDH by jm (07/26/2020 9:40 AM): ; jm (Jul 26 2020 9:38AM): CC: Pt would like remained teeth pulled so he can get a dentureRMH: No changes; Diabetes, Anxiety, Depression, Hx of siezure - last in childhood. Pt did not bring in list of med. Allergies: NoneSmoking Status: FormerBP: See BP log - Did not take todayTemp: 97.7EO/IO: Oral cancer screening performed - no abnormalites noted; normal mucosa with no white or raised patches. No lymphadenopathy. No poping or clicking of the TMJ. Pt has poor oral health due to broken teeth. Pt had lower teeth ext by Dr. Scott. He stated that Dr Scott would no longer work with him. Pt being referred to a different OS for ext of remaining max teeth and max and ca alveoloplasty. Pt is at the top of the list for major work and will start dentures as soon as pt heals. Behavior: Very compliantTX: Pano taken at no charge and exam by Dr. Rosales. Additional PPE used due to COVID-19. This included a minimum of a N95, a surgical mask, a hair covering, a face shield, proctective eyewear, a gown, and additional barriers.OHI: Spoke to pt about brushing and flossing. NV: First impression. Montserrat Callejas RDH by sonal (07/26/2020 9:01 AM): Tooth Notes and Watches: Assessment & Plan Allergies:No Known Allergies (updated 07/26/2020) Name Value Range Interpretation Code Description Data Yesenia rce(s) Supporting Document(s) ID Date Data Source [id number] 01/20/2020 04:25:00 PM EDT [facility] Name Value Range Interpretation Code Description Data Yesenia rce(s) Supporting Document(s) SARS CORONAVIRUS 2 RNA [facility] This lab was ordered by [facility] and reported by [facility]. Procedure Social History Code Duration Value Status Description Data Source(s ) Smoking 11/03/2020 12:00:00 AM EST Never Smoker completed Never S moker eCW1 ([facility]) Smoking 11/03/2020 12:00:00 AM EST Never Smoker completed Never S moker eCW1 ([facility]) Smoking 11/03/2020 12:00:00 AM EST Never Smoker completed Never S moker eCW1 ([facility]) Smoking 11/03/2020 12:00:00 AM EST Never Smoker completed Never S moker eCW1 ([facility]) Smoking 08/05/2020 12:00:00 AM EDT Never Smoker completed Never S moker eCW1 ([facility]) Smoking 08/05/2020 12:00:00 AM EDT Never Smoker completed Never S moker eCW1 ([facility]) Smoking 08/05/2020 12:00:00 AM EDT Never Smoker completed Never S moker eCW1 ([facility]) Smoking 08/05/2020 12:00:00 AM EDT Never Smoker completed Never S moker eCW1 ([facility]) Smoking 08/05/2020 12:00:00 AM EDT Never Smoker completed Never S moker eCW1 ([facility]) Smoking 03/12/2020 12:00:00 AM EDT Never Smoker completed Never S moker eCW1 ([facility]) Smoking 03/12/2020 12:00:00 AM EDT Never Smoker completed Never S moker eCW1 ([facility]) Smoking 03/12/2020 12:00:00 AM EDT Never Smoker completed Never S moker eCW1 ([facility]) Vital Signs ID Date Data Source UNK Name Value Range Interpretation Code Description Data Source(s) Diastolic blood pressure 80 mm[Hg] 80 mm[Hg] eCW1 ([facility]) Systolic blood pressure 140 mm[Hg] 140 mm[Hg] e CW1 ([facility]) Body temperature 98.1 [degF] 98.1 [degF] eCW1 ( [facility]) Respiratory rate 20 /min 20 /min eCW1 ([facility]) Heart rate 90 /min 90 /min eCW1 ([facility]) Body mass index (BMI) [Ratio] 43.69 kg/m2 43.69 kg/m2 W1 ([facility]) Body height 67 [in_i] 67 [in_i] eCW1 ([facility]) Body weight 279 [lb_av] 279 [lb_av] eCW1 ([facility]) Diastolic blood pressure 70 mm[Hg] 70 mm[Hg] eCW1 ([facility]) Systolic blood pressure 140 mm[Hg] 140 mm[Hg] e CW1 ([facility]) Body temperature 97.7 [degF] 97.7 [degF] eCW1 ( [facility]) Respiratory rate 20 /min 20 /min eCW1 ([facility]) Heart rate 88 /min 88 /min eCW1 ([facility]) Body mass index (BMI) [Ratio] 42.44 kg/m2 42.44 kg/m2 eCW1 ([facility]) Body height 67 [in_i] 67 [in_i] eCW1 ([facility]) Body weight 271 [lb_av] 271 [lb_av] eCW1 ([facility]) Body mass index (BMI) [Ratio] 42.3 kg/m2 42.3 k g/m2 MED[facility] ([facility] Heart rate 99 /min 99 /min MED[facility] ([facility] Diastolic blood pressure 82 mm[Hg] 82 mm[Hg] [facility] ([facility] Systolic blood pressure 160 mm[Hg] 160 mm[Hg] M EDENT ([facility] Body weight 270.00 [lb_av] 270.00 [lb_av] MEDEN T ([facility] Body height 67 [in_i] 67 [in_i] [facility] ([facility] 5'7" Diastolic blood pressure 76 mm[Hg] 76 mm[Hg] eCW1 ([facility]) Systolic blood pressure 132 mm[Hg] 132 mm[Hg] e CW1 ([facility]) Body temperature 97.0 [degF] 97.0 [degF] eCW1 ( [facility]) Respiratory rate 20 /min 20 /min eCW1 ([facility]) Heart rate 104 /min 104 /min eCW1 ([facility]) Body mass index (BMI) [Ratio] 43.38 kg/m2 43.38 kg/m2 eCW1 ([facility]) Body height 67 [in_i] 67 [in_i] eCW1 ([facility]) Body weight 277.0 [lb_av] 277.0 [lb_av] eCW1 ([facility]) Diastolic blood pressure 70 mm[Hg] 70 mm[Hg] eCW1 ([facility]) Systolic blood pressure 140 mm[Hg] 140 mm[Hg] e CW1 ([facility]) Body temperature 97.2 [degF] 97.2 [degF] eCW1 ( [facility]) Respiratory rate 20 /min 20 /min eCW1 ([facility]) Heart rate 90 /min 90 /min eCW1 ([facility]) Body mass index (BMI) [Ratio] 42.75 kg/m2 42.75 kg/m2 eCW1 ([facility]) Body height 67 [in_us] 67 [in_us] eCW1 ([facility]) Body weight Measured 273 [lb_av] 273 [lb_av] eC W1 ([facility]) Diastolic blood pressure 90 mm[Hg] 90 mm[Hg] eCW1 ([facility]) Systolic blood pressure 162 mm[Hg] 162 mm[Hg] e CW1 ([facility]) Body temperature 97.8 [degF] 97.8 [degF] eCW1 ( [facility]) Respiratory rate 20 /min 20 /min eCW1 ([facility]) Heart rate 96 /min 96 /min eCW1 ([facility]) Body mass index (BMI) [Ratio] 43.07 kg/m2 43.07 kg/m2 eCW1 ([facility]) Body height 67 [in_i] 67 [in_i] eCW1 ([facility]) Body weight 275 [lb_av] 275 [lb_av] eCW1 ([facility]) Diastolic blood pressure 70 mm[Hg] 70 mm[Hg] eCW1 ([facility]) Systolic blood pressure 116 mm[Hg] 116 mm[Hg] e CW1 ([facility]) Body temperature 98.0 [degF] 98.0 [degF] eCW1 ( [facility]) Respiratory rate 18 /min 18 /min eCW1 ([facility]) Heart rate 84 /min 84 /min eCW1 ([facility]) Body mass index (BMI) [Ratio] 42.13 kg/m2 42.13 kg/m2 eCW1 ([facility]) Body height 67 [in_us] 67 [in_us] eCW1 ([facility]) Body weight Measured 269.0 [lb_av] 269.0 [lb_av ] eCW1 ([facility]) Patient Treatment Plan of Care Planned Activity Planned Date Details Description Data Source (s) 0.5 ML dulaglutide 3 MG/ML Auto-Injector [Trulicity] 021 12:00:00 AM EST eCW1 ([facility]) Trulicity 3 MG/0.5ML 11/03/2020 12:00:00 AM EST eCW1 ([facility]) Trulicity 3 MG/0.5ML 11/03/2020 12:00:00 AM EST eCW1 ([facility]) Trulicity 3 MG/0.5ML 11/03/2020 12:00:00 AM EST eCW1 ([facility]) Ergocalciferol 97890 UNT Oral Capsule [Drisdol] 04/05/2020 12:00:00 AM EDT eCW1 ([facility]) Ergocalciferol 60941 UNT Oral Capsule [Drisdol] 04/05/2020 12:00:00 AM EDT eCW1 ([facility]) 0.5 ML dulaglutide 3 MG/ML Auto-Injector [Trulicity] 020 12:00:00 AM EDT eCW1 ([facility]) Tolnaftate 0.01 MG/MG Topical Powder 03/12/2020 12:00:00 AM EDT eCW1 ([facility]) Admelog 100 UNIT/ML 02/16/2020 12:00:00 AM EDT eCW1 ([facility]) Admelog 100 UNIT/ML 02/16/2020 12:00:00 AM EDT eCW1 ([facility]) Admelog 100 UNIT/ML 02/16/2020 12:00:00 AM EDT eCW1 ([facility]) Admelog 100 UNIT/ML 02/16/2020 12:00:00 AM EDT eCW1 ([facility]) Admelog 100 UNIT/ML 02/16/2020 12:00:00 AM EDT eCW1 ([facility]) Acetaminophen 500 MG Oral Tablet 02/12/2020 12:00:00 AM EDT eCW1 ([facility]) Acetaminophen 500 MG Oral Tablet 02/12/2020 12:00:00 AM EDT eCW1 ([facility]) Acetaminophen 500 MG Oral Tablet 02/12/2020 12:00:00 AM EDT eCW1 ([facility]) Acetaminophen 500 MG Oral Tablet 02/12/2020 12:00:00 AM EDT eCW1 ([facility]) Diclofenac Sodium 0.01 MG/MG Topical Gel 02/12/2020 12:00:00 AM EDT eCW1 ([facility]) Diclofenac Sodium 0.01 MG/MG Topical Gel 02/12/2020 12:00:00 AM EDT eCW1 ([facility]) Amlodipine 5 MG Oral Tablet 01/16/2020 12:00:00 AM EDT eCW1 ([facility]) Amoxicillin 875 MG / Clavulanate 125 MG Oral Tablet 10/21/19 12:00:00 AM EST eCW1 ([facility]) 0.5 ML dulaglutide 1.5 MG/ML Auto-Injector [Trulicity] 10/09/2019 12:00:00 AM EST eCW1 ([facility]) 0.5 ML dulaglutide 1.5 MG/ML Auto-Injector [Doloresity] 10/09/2019 12:00:00 AM EST eCW1 ([facility])
[2020-11-24] MEDS ORDERED: CHLO125TA (08:08)
--- NOTE | 2020-11-24 08:50 | REP ---
INDICATION: trauma, anterior, medial pain COMPARISON: None. TECHNIQUE: AP, lateral, bilateral oblique and sunrise views. FINDINGS: Moderate tricompartmental osteoarthritic degenerative changes are appreciated. Chronic fragment along the superior aspect of the patella are unchanged from prior examination. No obvious acute fracture or dislocation. Lateral view suggests prepatellar swelling and possible small suprapatellar effusion. IMPRESSION: 1. Moderate tricompartmental osteoarthritic changes and chronic findings related to the patella. 2. No obvious acute fracture or dislocation. 3. Prepatellar swelling and effusion cannot be excluded. <Electronically signed by Boogie Lance > 11/24/20 [id number]
--- OUTSIDE RECORDS SUMMARY | 2020-11-24 08:55 | CCD ---
Author Author [facility] Organization [facility] Address Unknown Phone Unavailable Care Team Providers Care [employer] Adviser Name Role Phone Pedro DALE DPM Unavailable [...] Villa, Sedrick Munson MD Unavailable Unavailable Villa, Serdick Munson MD Unavailable Unavailable Villa, Sedrick Munson MD Unavailable Unavailable Villa, Sedrick Munson MD Unavailable Unavailable Villa, Sedrick Munson MD Unavailable Unavailable Villa, Sedrick Munson MD Unavailable Unavailable Villa, Sedrick Munson MD Unavailable Unavailable Villa, Sedrick Munson MD Unavailable Unavailable Villa, Sedrick Munosn MD Unavailable Unavailable Villa, Sedrick Munson MD Unavailable Unavailable Villa, Sedrick Munson MD Unavailable Unavailable Villa, Sedrick Munson MD Unavailable Unavailable Villa, Sedrick Munson MD Unavailable Unavailable Villa, Sedrick Munson MD Unavailable Unavailable Villa, Sedrick Munson MD Unavailable Unavailable Villa, Sedrick Munson MD Unavailable Unavailable Villa, Sedrick Munson MD Unavailable Unavailable [facility], MJAIN Unavailable Unavailable DilleArcelia DDS Unavailable Unavailable DilleArcelia DDS Unavailable Unavailable Dille E Bailey DDS Unavailable Unavailable DilleArcelia DDS Unavailable Unavailable Re-disclosure Warning The records [...] is protected by Article 27-F of the [facility] Public Health law. If you continue you may have access to information: Regarding HIV / AIDS; Provided by facilities licensed or operated by the [facility] Office of Mental Health; or Provided by the [facility] Office for People With Developmental Disabilities. If such information is present, then the following [facility] mandated warning applies: This information has been [...] law may result in a fine or custodial sentence or both. A general authorization for the release of medical or other information is NOT sufficient authorization for further disc losure. Allergies and Adverse Reactions Type Description Substance Reaction Status Data Source(s ) Drug allergy Metoprolol Tartrate Metoprolol abdominal pain Active eCW1 ([facility]) cigerette smoke cigerette smoke cigerette smoke hard time breathing Active eCW1 ([facility]) cigerette smoke cigerette smoke cigerette smoke hard time breathing Active eCW1 ([facility]) Allergy to substance Allergy to substance Allergy to substance JEREMY ([facility]) Family History Family Member Name Family Member Gender Family Member Status Date o f Status Description Data Source(s) Unknown Female Problem MEDENT ([facility] Encounters Encounter Providers Location Date Indications Data Source(s ) [place] [address] [facility] [address] 11/23/2020 12:00:00 AM EST eCW1 ([facility]) [place] [address] [facility] [address] 11/19/2020 12:00:00 AM EST eCW1 ([facility]) [place] [address] [facility] [address] 11/16/2020 12:00:00 AM EST eCW1 ([facility]) Outpatient [address] [facility] [address] 11/03/2020 12:00:00 AM EST eCW1 ([facility]) Arpit Villa MD: [address] [place] [address], Ph. Attender: Arpit Villa MD [place] - [facility] Medical 10/25/2020 12:00:00 AM EST JEREMY ([facility]) Out[place] [address] [facility] [address] 10/20/2020 12:00:00 AM EST eCW1 ([facility]) [place] [address] [facility] [address] 10/20/2020 12:00:00 AM EST eCW1 ([facility]) [place] [address] [facility] [address] 08/12/2020 12:00:00 AM EDT eCW1 ([facility]) [place] [address] [facility] [address] 08/09/2020 12:00:00 AM EDT eCW1 ([facility]) [facility] 10:09:00 AM EDT [facility] Out[facility] [address] [facility] [address] 08/05/2020 12:00:00 AM EDT eCW1 ([facility]) [facility] 07/26/2020 12:04:03 PM EDT [facility] 07/26/2020 12:03:00 PM EDT [facility]: [facility] 07/26/2020 09:41:02 AM EDT [facility] 07/26/2020 08:58:01 AM EDT [facility]: [facility] 07/26/2020 08:57:00 AM EDT [facility] Out[facility] Attender: [facility] 07/26/2020 08:56:01 AM EDT [facility] Outpatient Attender: Bailey Castle LIZRoberto LIU 07/23/2020 11:18:01 A M EDT [facility] Outpatient Attender: Bailey Castle DDS WATND 07/09/2020 01:20:00 P M EDT [facility] [place] [address] [facility] [place] [address] 05/31/2020 12:00:00 AM EDT eCW1 ([facility]) Outpatient Attender: LUPE DALE [facility] 04/14 10:45:00 AM EDT MEDENT ([facility]irio Dale[facility] [place] [address] [facility] [address] 04/05/2020 12:00:00 AM EDT [facility]CW1 [facility]patient [address] [facility] [place] [address] 04/05/2020 12:00:00 AM EDT [facility] [place] [facility] [address] [facility] Y [address] 03/15/2020 12:00:00 AM EDT eCW1 ([facility]) Outpatient [address] [facility] Y [address] 03/12/2020 12:00:00 AM EDT [facility]CW1 [facility] [place] [address] [facility] Y [address] 03/09/2020 12:00:00 AM EDT eCW1 [facility] [place] [address] [facility] Y [address] 03/01/2020 12:00:00 AM EDT eCW1 ([facility]) [facility] [address] [facility] [address] 03/01/2020 12:00:00 AM EDT eCW1 ([facility]) [facility] [address] [facility] [address] 02/23/2020 12:00:00 AM EDT eCW1 ([facility]) [facility] [address] [place] [address], [place] [address] 02/17/2020 12:00:00 AM EDT eCW1 ([facility]) [facility] [address] [place] [address], [place] [address] 02/17/2020 12:00:00 AM EDT eCW1 ([facility]) [facility] [address] [place] [address], [place] [address] 02/16/2020 12:00:00 AM EDT eCW1 ([facility]) [facility] [address] [place] [address], [place] [address] 02/16/2020 12:00:00 AM EDT eCW1 ([facility]) [facility] [address] [place] [address], [place] [address] 02/13/2020 12:00:00 AM EDT eCW1 ([facility]) [facility] [address] [place] [address], [place] [address] 02/13/2020 12:00:00 AM EDT eCW1 ([facility]) [facility] [address] [place] [address], [place] [address] 02/12/2020 12:00:00 AM EDT eCW1 ([facility]) [facility] [address] [place] [address], [place] [address] 02/12/2020 12:00:00 AM EDT eCW1 ([facility]) [address] [address] 01/22/2020 12:00:00 AM EDT eCW1 ([facility]) [facility] [address] [facility] [address] 01/21/2020 12:00:00 AM EDT eCW1 ([facility]) [facility] [address] [facility] [address] 01/20/2020 12:00:00 AM EDT eCW1 ([facility]) Unknown [address] [facility] [address] 01/19/2020 12:00:00 AM EDT eCW1 ([facility]) [facility] [address] [place] [address], [place] [address] 01/16/2020 12:00:00 AM EDT eCW1 ([facility]) [facility] [address] [place] [address], [place] [address] 01/12/2020 12:00:00 AM EDT eCW1 ([facility]) [facility] [address] [place] [address], [place] [address] 12/30/2019 12:00:00 AM EDT eCW1 ([facility]) [facility] [address] [place] [address], [place] [address] 12/29/2019 12:00:00 AM EDT eCW1 ([facility]) [facility] [address] [place] [address], [place] [address] 12/24/2019 12:00:00 AM EDT eCW1 ([facility]) [facility] [address] [place] [address], [place] [address] 12/24/2019 12:00:00 AM EDT eCW1 ([facility]) [facility] [address] [place] [address], [place] [address] 11/26/2019 12:00:00 AM EST [facility]CW1 [facility] [address] [address] 11/19/2019 12:00:00 AM EST eCW1 ([facility]) Outpatient 10/22/2019 04:33:00 PM EST [facility] [address] [address] 10/21/2019 12:00:00 AM EST eCW1 ([facility]) [address] [address] 10/20/2019 12:00:00 AM EST eCW1 ([facility]) [address] [address] 10/20/2019 12:00:00 AM EST eCW1 ([facility]) [address] [address] 10/16/2019 12:00:00 AM EST eCW1 ([facility]) [address] [address] 10/06/2019 12:00:00 AM EST eCW1 ([facility]) Medications Medication Brand Name Start Date Product Form Dose Route Admi nistrative Instructions Pharmacy Instructions Status Indications Reaction Description Data Source(s) 0.5 ML dulaglutide 3 MG/ML Auto-Injector [Trulicity] T rulicity 1.5 MG/0.5ML Trulicity 1.5 MG/0.5ML 11/23/2020 12:00:00 AM EST active Trulicity 1.5 MG/0.5ML eCW1 ([facility]) 5-325 mg 11/22/2020 12:00:00 AM EST [...] BY MOUTH EVERY 8 HOURS SOLD: 11/22/2020 [facility] 0.12 % 11/22/2020 12:00:00 AM EST mouthwash 473 RINSE AND SPIT WITH 15ML (ONE CAPUL) FOR 30 SECONDS TWO TIMES A DAY AFTER TOOTHBRUSHING-DO NOT SWALLOW. RINSE AND SPIT WITH 15ML (ONE CAPUL) FOR 30 SECONDS TWO TIMES A DAY AFTER TOOTHBRUSHING-DO NOT SWALLOW. SOLD: 11/22/2020 [facility] 50 mg 11/15/2020 12:00:00 AM EST tablet 60 TAKE ONE TABLET BY MOUTH TWO TIMES A DAY TAKE ONE TABLET BY MOUTH TWO TIMES A DAY SOLD: 11/15/2020 [facility] 25 mg 11/15/2020 12:00:00 AM EST tablet 15 TAKE 1/2 TABLET BY MOUTH EVERY MORNING WITH FOOD TAKE 1/2 TABLET BY MOUTH EVERY MORNING WITH FOOD SOLD: 11/15/2020 [facility] Trulicity 3 MG/0.5ML Trulicity 3 MG/0.5ML 11/03/2020 12:00:00 AM EST active Trulicity 3 MG/0.5ML eCW1 ([facility]) Trulicity 3 MG/0.5ML Trulicity 3 MG/0.5ML 11/03/2020 12:00:00 AM EST active Trulicity 3 MG/0.5ML eCW1 ([facility]) Trulicity 3 MG/0.5ML Trulicity 3 MG/0.5ML 11/03/2020 12:00:00 AM EST active Trulicity 3 MG/0.5ML eCW1 ([facility]) 1 % 10/21/2020 12:00:00 AM EST powder 45 APPLY BETWEEN THE TOES TWO TIMES A DAY APPLY BETWEEN THE TOES TWO TIMES A DAY SOLD: 10/25/2020 [facility] 90 mcg/actuation 10/20/2020 12:00:00 AM EST HFA aerosol inha ler 18 INHALE TWO PUFFS BY MOUTH EVERY 4 HOURS NEEDED INHALE TWO PUFFS BY MOUTH EVERY 4 HOURS NEEDED SOLD: 10/22/2020 [facility] Ketoconazole 20 MG/ML Medicated Shampoo KETOCONAZOLE 10/20/19 12:00:00 AM EST shampoo 120 APPLYL TO SCALP AND JOYA 3 TIME S A WEEK APPLYL TO [...] 0.75MG UNDER THE SKIN WEEKLY SOLD: 08/10/2020 [facility] 1 % 08/06/2020 12:00:00 AM EDT powder 45 APPLY BETWEEN TOES TWO TIMES A DAY APPLY BETWEEN TOES TWO TIMES A DAY SOLD: 08/09/2020 [facility] 40 mg 06/30/2020 12:00:00 AM EDT tablet 30 TAKE ONE TABLET BY MOUTH EVERY MORNING TAKE ONE TABLET BY MOUTH EVERY MORNING SOLD: 07/08/2020 [facility] 1,250 mcg (50,000 unit) 06/30/2020 12:00:00 [...] MOUTH TWICE A DAY SOLD: 08/10/2020 [facility] 100 unit/mL (3 mL) 06/09/2020 12:00:00 [...] 42 UNITS SOLD: 04/12/2020 [facility] Ergocalciferol 20444 UNT Oral Capsule [Drisdol] Dris[place] l 79560 UNIT Drisdol 24274 UNIT 04/05/2020 12:00:00 AM EDT 1.0 {capsule} acti ve Drisdol 41113 UNIT eCW1 ([facility]) Ergocalciferol 80203 UNT Oral Capsule [Drisdol] Drisdo l 82979 UNIT Drisdol 77633 UNIT 04/05/2020 12:00:00 AM EDT 1.0 {capsule} acti ve Drisdol 62014 UNIT eC ([facility]) 1,250 mcg (50,000 unit) 04/05/2020 12:00:00 [...] AM EDT active Trulicity 1.5 MG/0.5ML eCW1 ([facility]) Tolnaftate 0.01 MG/MG Topical Powder Tolnaftate 1 % Tolnafta te 1 % 03/12/2020 12:00:00 AM EDT active Tolnafta te 1 % eCW1 ([facility]) 1 % 03/12/2020 12:00:00 AM EDT [...] EDT active Tolnafta te 1 % eCW1 ([facility]) 0.5 ML dulaglutide 3 MG/ML Auto-Injector [Trulicity] T rulicity 1.5 MG/0.5ML Trulicity 1.5 MG/0.5ML 03/12/2020 12:00:00 AM EDT active Trulicity 1.5 MG/0.5ML eCW1 ([facility]) 100 unit/mL (3 mL) 03/12/2020 12:00:00 AM EDT insulin pen 30 INJECT 58 UNITS UNDER THE SKIN TWO TIMES A DAY INJECT 58 UNITS UNDER THE SKIN TWO TIMES A DAY SOLD: 03/13/2020 [facility] Tolnaftate 0.01 MG/MG Topical Powder Tolnaftate 1 % Tolnafta te 1 % 03/12/2020 12:00:00 AM EDT active Tolnafta te 1 % eCW1 ([facility]) 0.5 ML dulaglutide 3 MG/ML Auto-Injector [Trulicity] T rulicity 1.5 MG/0.5ML Trulicity 1.5 MG/0.5ML 03/12/2020 12:00:00 AM EDT active Trulicity 1.5 MG/0.5ML eCW1 ([facility]) 1,000 mg 03/12/2020 12:00:00 AM EDT [...] 12:00:00 AM EDT active 10 units eCW1 ([facility]) Admelog 100 UNIT/ML Admelog 100 UNIT/ML 02/16/2020 12:00:00 AM EDT active Admelog 100 UNIT/ML eCW1 ([facility]) Admelog 100 UNIT/ML Admelog 100 UNIT/ML 02/16/2020 12:00:00 AM EDT active Admelog 100 UNIT/ML eCW1 ([facility]) Admelog 100 UNIT/ML Admelog 100 UNIT/ML 02/16/2020 12:00:00 AM EDT active as directed eCW1 ([facility]) Admelog 100 UNIT/ML Admelog 100 UNIT/ML 02/16/2020 12:00:00 AM EDT active 8 to 10 units per sliding scale eCW1 ([facility]) Admelog 100 UNIT/ML Admelog 100 UNIT/ML 02/16/2020 12:00:00 AM EDT active Admelog 100 UNIT/ML eCW1 ([facility]) Admelog 100 UNIT/ML Admelog 100 UNIT/ML 02/16/2020 12:00:00 AM EDT active 8-12units with each meal per sli ding scale dx: e11.65 eCW1 ([facility]) Admelog 100 UNIT/ML Admelog 100 UNIT/ML 02/16/2020 12:00:00 AM EDT active as directed eCW1 ([facility]) 500 mg 02/13/2020 12:00:00 AM EDT [...] 1.0 {tablet_as_needed} suspended Acetaminophen 500 MG eCW1 ([facility]) Diclofenac Sodium 0.01 MG/MG Topical Gel Diclofenac So dium 1 % Diclofenac Sodium 1 % 02/12/2020 12:00:00 AM EDT suspended Diclofenac Sodium 1 % eCW1 ([facility]) Acetaminophen 500 MG Oral Tablet Acetaminophen 500 MG 2019 12:00:00 AM EDT 1.0 {tablet_as_needed} active A cetaminophen 500 MG eCW1 ([facility]) Diclofenac Sodium 0.01 MG/MG Topical Gel Diclofenac So dium 1 % Diclofenac Sodium 1 % 02/12/2020 12:00:00 AM EDT suspended Diclofenac Sodium 1 % eCW1 ([facility]) Acetaminophen 500 MG Oral Tablet Acetaminophen 500 MG 2019 12:00:00 AM EDT 1.0 {tablet_as_needed} active A cetaminophen 500 MG eCW1 ([facility]) Diclofenac Sodium 0.01 MG/MG Topical Gel Diclofenac So dium 1 % Diclofenac Sodium 1 % 02/12/2020 12:00:00 AM EDT suspended Diclofenac Sodium 1 % eCW1 ([facility]) Acetaminophen 500 MG Oral Tablet Acetaminophen 500 MG 2019 12:00:00 AM EDT 1.0 {tablet_as_needed} active A cetaminophen 500 MG eCW1 ([facility]) Acetaminophen 500 MG Oral Tablet Acetaminophen 500 MG 2019 12:00:00 AM EDT 1.0 {tablet_as_needed} active A cetaminophen 500 MG eCW1 ([facility]) Acetaminophen 500 MG Oral Tablet Acetaminophen 500 MG 2019 12:00:00 AM EDT 1.0 {tablet_as_needed} active A cetaminophen 500 MG eCW1 ([facility]) Diclofenac Sodium 0.01 MG/MG Topical Gel Diclofenac So dium 1 % Diclofenac Sodium 1 % 02/12/2020 12:00:00 AM EDT active 4gm to left knee area eCW1 ([facility]) Diclofenac Sodium 0.01 MG/MG Topical Gel Diclofenac So dium 1 % Diclofenac Sodium 1 % 02/12/2020 12:00:00 AM EDT suspended 4gm to left knee DX: M17.12 eCW1 ([facility]) Acetaminophen 500 MG Oral Tablet Acetaminophen 500 MG 2019 12:00:00 AM EDT 1.0 {tablet_as_needed} active A cetaminophen 500 MG eCW1 ([facility]) Diclofenac Sodium 0.01 MG/MG Topical Gel Diclofenac So dium 1 % Diclofenac Sodium 1 % 02/12/2020 12:00:00 AM EDT suspended Diclofenac Sodium 1 % eCW1 ([facility]) Acetaminophen 500 MG Oral Tablet Acetaminophen 500 MG 2019 12:00:00 AM EDT 1.0 {tablet_as_needed} active A cetaminophen 500 MG eCW1 ([facility]) Diclofenac Sodium 0.01 MG/MG Topical Gel Diclofenac So dium 1 % Diclofenac Sodium 1 % 02/12/2020 12:00:00 AM EDT suspended Diclofenac Sodium 1 % eCW1 ([facility]) Diclofenac Sodium 0.01 MG/MG Topical Gel Diclofenac So dium 1 % Diclofenac Sodium 1 % 02/12/2020 12:00:00 AM EDT active 4gm to left knee DX: M17.12 eCW1 ([facility]) Diclofenac Sodium 0.01 MG/MG Topical Gel Diclofenac So dium 1 % Diclofenac Sodium 1 % 02/12/2020 12:00:00 AM EDT suspended Diclofenac Sodium 1 % eCW1 ([facility]) Acetaminophen 500 MG Oral Tablet Acetaminophen 500 MG 2019 12:00:00 AM EDT 1.0 {tablet_as_needed} active A cetaminophen 500 MG eCW1 ([facility]) Acetaminophen 500 MG Oral Tablet Acetaminophen 500 MG 2019 12:00:00 AM EDT active 1 tablet as neede d eCW1 ([facility]) Acetaminophen 500 MG Oral Tablet Acetaminophen 500 MG 2019 12:00:00 AM EDT 1.0 {tablet_as_needed} active A cetaminophen 500 MG eCW1 ([facility]) Diclofenac Sodium 0.01 MG/MG Topical Gel Diclofenac So dium 1 % Diclofenac Sodium 1 % 02/12/2020 12:00:00 AM EDT suspended Diclofenac Sodium 1 % eCW1 ([facility]) Acetaminophen 500 MG Oral Tablet Acetaminophen 500 MG 2019 12:00:00 AM EDT 1.0 {tablet_as_needed} active A cetaminophen 500 MG eCW1 ([facility]) Acetaminophen 500 MG Oral Tablet Acetaminophen 500 MG 2019 12:00:00 AM EDT suspended 1 tablet as ne eded eCW1 ([facility]) Acetaminophen 500 MG Oral Tablet Acetaminophen 500 MG 2019 12:00:00 AM EDT 1.0 {tablet_as_needed} active A cetaminophen 500 MG eCW1 ([facility]) Diclofenac Sodium 0.01 MG/MG Topical Gel Diclofenac So dium 1 % Diclofenac Sodium 1 % 02/12/2020 12:00:00 AM EDT suspended Diclofenac Sodium 1 % eCW1 ([facility]) 400 mg 02/11/2020 12:00:00 AM EDT suspension,extended rel recon 1 INJECT INTRAMUSCULARLY ONCE MONTHLY INJECT INTRAMUSCULARLY ONCE MONTHLY SOLD: 02/11/2020 [facility] 50 mg 02/11/2020 12:00:00 AM EDT [...] 12:00:00 AM EDT active 1 tablet eCW1 ([facility]) 100 mg 01/20/2020 12:00:00 AM EDT capsule 14 TAKE ONE CAPSULE BY MOUTH TWICE A DAY FOR 7 DAYS TAKE ONE CAPSULE BY MOUTH TWICE A DAY FOR 7 DAYS SOLD: 01/20/2020 [facility] 5 mg 01/16/2020 12:00:00 AM EDT tablet 90 TAKE ONE TABLET BY MOUTH EVERY DAY TAKE ONE TABLET BY MOUTH EVERY DAY SOLD: 01/16/2020 [facility] Amlodipine 5 MG Oral Tablet AmLODIPine Besylate 5 MG AmLODIP ine Besylate 5 MG 01/16/2020 12:00:00 AM EDT active 1 tablet eCW1 ([facility]) Amlodipine 5 MG Oral Tablet AmLODIPine Besylate 5 MG AmLODIP ine Besylate 5 MG 01/16/2020 12:00:00 AM EDT 1.0 {tablet} active AmLODIPine Besylate 5 MG eCW1 ([facility]) Amlodipine 5 MG Oral Tablet AmLODIPine Besylate 5 MG AmLODIP ine Besylate 5 MG 01/16/2020 12:00:00 AM EDT active 1 tablet eCW1 ([facility]) 50 mg 01/14/2020 12:00:00 AM EDT tablet 30 TAKE 1/2 TO 1 TABLET BY MOUTH AT BEDTIME NEEDED FOR INSOMNIA TAKE 1/2 TO 1 TABLET BY MOUTH AT BEDTIME NEEDED FOR INSOMNIA SOLD: 01/14/2020 [facility] BLOOD-GLUCOSE METER 12/31/2019 12:00:00 AM EDT misc 1 USE DIRECTED TWO TIMES A DAY USE DIRECTED TWO TIMES A DAY SOLD: 12/31/2019 [facility] 30 gauge 12/31/2019 12:00:00 AM EDT misc 100 USE TWO TIMES A DAY AND NEEDED USE TWO TIMES A DAY AND NEEDED SOLD: 12/31/2019 [facility] BLOOD SUGAR DIAGNOSTIC 12/31/2019 12:00:00 AM EDT strip 100 TEST TWO TIMES A DAY AND NEEDED TEST TWO TIMES A DAY AND NEEDED SOLD: 12/31/2019 [facility] BLOOD SUGAR DIAGNOSTIC 12/31/2019 12:00:00 AM EDT strip 100 TEST TWO TIMES A DAY AND NEEDED TEST TWO TIMES A DAY AND NEEDED SOLD: 02/18/2020 [facility] 100 unit/mL (3 mL) 12/25/2019 12:00:00 AM EDT insulin pen 30 INJECT 58 UNITS UNDER THE SKIN TWO TIMES A DAY INJECT 58 UNITS UNDER THE SKIN TWO TIMES A DAY SOLD: 02/08/2020 [facility] 1,250 mcg (50,000 unit) 12/25/2019 12:00:00 [...] AM ES T suspended 1 tablet eCW1 ([facility]) Amoxicillin 875 MG / Clavulanate 125 MG Oral Tablet Amoxicillin-Pot Clavulanate 875-125 MG Amoxicillin-Pot Clavulanate 875-125 MG 10/21/2019 12:00:00 AM ES T 1.0 {tablet} suspended Amoxicillin-Pot C lavulanate 875-125 MG eCW1 ([facility]) Amoxicillin 875 MG / Clavulanate 125 MG Oral Tablet Amoxicillin-Pot Clavulanate 875-125 MG Amoxicillin-Pot Clavulanate 875-125 MG 10/21/2019 12:00:00 AM ES T active 1 tablet eCW1 ([facility]) 400 mg 10/14/2019 12:00:00 AM EST [...] 10/09/2019 12:00:00 AM EST active 0.75mg eCW1 ([facility]) 0.75 mg/0.5 mL 10/09/2019 12:00:00 AM EST pen injector 2 INJECT 0.75MG ONCE A WEEK UNDER THE SKIN INJECT 0.75MG ONCE A WEEK UNDER THE SKIN SOLD: 10/09/2019 [facility] 0.5 ML dulaglutide 1.5 MG/ML Auto-Injector [Trulicity] Trulicity 0.75 MG/0.5ML Trulicity 0.75 MG/0.5ML 10/09/2019 12:00:00 AM EST active 0.75mg eCW1 ([facility]) 0.5 ML dulaglutide 1.5 MG/ML Auto-Injector [Trulicity] Trulicity 0.75 MG/0.5ML Trulicity 0.75 MG/0.5ML 10/09/2019 12:00:00 AM EST active 0.75mg eCW1 ([facility]) 0.5 ML dulaglutide 1.5 MG/ML Auto-Injector [Trulicity] Trulicity 0.75 MG/0.5ML Trulicity 0.75 MG/0.5ML 10/09/2019 12:00:00 AM EST active 0.75mg eCW1 ([facility]) 81 mg 09/17/2019 12:00:00 AM EST [...] MOUTH EVERY MORNING WITH FOOD SOLD: 10/15/2019 [facility] 10 mg 07/17/2019 12:00:00 AM [...] type / Coverage type Policy ID Covered libertarian ID Covered libertarian's relationship to stokes Policy Stokes Plan Information [facility] COMMUNITY PL[facility] MCDO [id number] SP [id number] Managed Care - [facility] Community Plan P [id number] S [id number] Medicaid S [id number] S [id number] Managed Care [place] P [id number] S [id number] [facility] O [id number] S [id number] [place] O [id number] S [id number] AMANDO [id number] SP [id number] ANSI-Commercial [id number] ANSI-Commercial [id number] AM[facility]O [id number] SP [id number] ANSI-Commercial [id number]-ywv0-5q0g-j39q-[id number]-fuk8-6m6s-w71k-[id number] ANSI-Commercial [id number]-[id number] [id number]-n8y5-0j34sfs0858w ANSI-Commercial 9dutj43t-6g6f-7608-9066-0z657m1y909s 0oyiz58f-7r0k-7679-0123-4a032o3t037s ANSI-Commercial p254g96t-[id number]-i9q1d5t38w73 p511n56o-0875-1006-6962-i4n8g1k56h70 ANSI-Commercial 6m0xh004-s44z-4280-pnvu-84o1two06fx1 9j6eo224-e86r-1952-xouq-07f3cdg77te3 ANSI-Commercial [id number]-z1528n3t046i 9w37ls95-8823-47i9-5e80-z6776q2k648w ANSI-Commercial 4a67y13k-kx42-73p7-r393-kwrt33x88p55 4r03e28p-kk61-94n1-d157-hois44w00b01 ANSI-Commercial 0654n33s-ti47-3rs8-978l-727v94t6iavm 5360y24d-gj86-6vt8-147o-768l41p5yyko ANSI-Commercial 71d2w5ea-k44q-7k92-r2g1-115v2ok60pu3 96a5f1ut-r06v-7s81-b6x3-842p3hg57tq6 [facility] Commercial [id number] Self [id number] ANSI-Commercial i898209j-j650-3128-1g7u-m09u29zsx5a2 [id number]-s527-2037-0w2s-b96e98rdi1y3 ANSI-Commercial n3d1cr5h-1032-827u-c757-s26h9181v5g5 p5z6qw9r-9418-725b-u160-n31q8911f3n4 ANSI-Commercial [id number]-xt0g-[id number]-il0h-709a61q91287 ANSI-Commercial 13820x3a-49q8-5335-5935-[id number] 44832e7s-60s8-6860-4975-q255xm503467 ANSI-Commercial 62z20w36-y1lb-62pe-44r6-472y8onzl769 58h71u50-a3at-87qw-44r7-456z6laxf581 ANSI-Commercial low9134o-3967-7629-1ijb-yjx715im95ke fvs3701a-2441-2271-0akk-hwt335sa23lb ANSI-Commercial 9qx1q835-f4ka-2u94-68z8-[id number] 1wk8y775-o3ox-0v24-95c2-[id number] ANSI-Commercial l1255zh3-j6r2-5g6v-tc0j-j21o12v20yz4 h9396uu0-a6y0-0s0i-yg7d-e93x63l73xo6 ANSI-Commercial [id number] [id number]-4184-g983-07l2137k5c73 ANSI-Commercial 0tds2rr2-0898-1n55-8dh1-54o8zbun11d2 3ykn1ea9-6736-7d20-7dy0-65r1ikik22e8 ANSI-Commercial 88j3bcv3-r965-88vf-851z-68x8z4x4f48w 25b0jxd4-j802-17di-847z-73c5u0j6h18q ANSI-Commercial 51539lq7-90h9-8oz2-kf9d-8n063m32j8m5 36133mq9-37u7-1ly3-ng9z-4t812j37f1v4 ANSI-Commercial 5khjtb8p-j92r-2533-11f7-03w37y2cl0xd 1pwqnz1l-t05s-0312-75g6-15k67g0oq3yg ANSI-Commercial 46tlu691-593q-1i92-417c-[id number] 35qlw987-685f-4l85-228x-[id number] ANSI-Commercial [id number]-w7b5-64h6-162x-[id number] [id number]-u8w1-56k9-297n-7j6q66158y33 ANSI-Commercial 66q0d0f7-p1y5-170m-bm2b-txs6b62df5t7 56q8m5x4-y6n9-731i-sc9r-qtw4o70vk8i8 ANSI-Commercial 4on42300-89x0-8n63-03s1-0f106jjy6h74 6hh70559-11e0-7f13-32n1-9i318erb4c28 ANSI-Commercial pxb4q9tc-580q-4nk8-2hv5-g478qjsm36q8 hon5t6rf-526y-7dd4-3lm5-d333dopd75i7 ANSI-Commercial 0q3ga1pd-58t2-700p-[id number] 2g5to7lv-56x6-900i-p906-583j361g9858 ANSI-Commercial 79yr8a8s-t779-8937-bwu3-5h4pijf13370 62ll1b0m-u583-0539-pvj1-1t1ukze67761 ANSI-Commercial u2s41050-c857-5969-za1q-09m7w3f36016 q9d02466-k002-6927-tb0c-37o3o9a09626 ANSI-Commercial qx11w0b9-937j-69bx-c1fw-8t7q64716c74 ft76x5a5-379h-72ml-u7ur-3s2m25991g73 ANSI-Commercial 263212t8-z7z8-43x8-1ee2-oqs1z052t926 059058i4-f9f8-44b7-8nu8-ifn1a585p374 ANSI-Commercial [id number]-a6q9-1na9-[id number]-k2i6-9hw6-[id number] Medicaid S [id number] S [id number] [facility] Commercial [id number] Self [id number] Managed Care [place] P [id number] S [id number] AMANDO I [id number] Self [id number] [facility] Commercial [id number] Self [id number] AM[place] [id number] SP [id number] AM[place] [id number] SP [id number] AM[place]O [id number] SP [id number] [facility] Commercial Self Managed Care [place] P [id number] S [id number] Medicaid S [id number] S [id number] Managed Care - Community Plan [facility] P [id number] S [id number] [place] [id number] SP [id number] [place] P [id number] S [id number] Medicaid S [id number] S [id number] AM[place] [id number] SP [id number] MEDICAID [id number] SP [id number] SELF PAY UNAVAILABLE [place] [id number] SP [id number] MEDICAID [id number] SP [id number] [place] [id number] SP [id number] [place] [id number] SP [id number] Problems, Conditions, and Diagnoses Code Display Name Description Problem Type Effective Dates Data Source(s) 310416460 Clinical finding Clinical Finding Problem 07/29/2020 05 :31:24 PM EDT [place] ([facility]) 558032793 SNOMED CT Concept SNOMED CT Concept Problem 07/29 05:31:24 PM EDT [place] ([facility]) 48771895 Depressive disorder Depressive Disorder Problem 1 05:31:24 PM EDT [place] ([facility]) 525.10 Teeth extraction Teeth extraction 07/26/2020 12 :02:56 PM EDT [facility] 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.4 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 [place] 03/12/2020 12:00:00 AM EDT eCW ([facility]) Z79.4 [id number] [facility] (current) use of insulin [facility] 03/12/2020 12:00:00 AM EDT eCW1 ([facility]) M17.12 [id number] Osteoarthritis of le ft knee, unspecified osteoarthritis type Problem 02/16/2020 12:00:00 AM EDT eCW1 ([facility]) M19.90 1101126 Arthritis Problem 02/16/2020 12:00:00 AM ED T eCW1 ([facility]) M17.12 [id number] Osteoarthritis of le ft knee, unspecified osteoarthritis type Problem 02/16/2020 12:00:00 AM EDT eCW1 ([facility]) M19.90 8051724 Arthritis Problem 02/16/2020 12:00:00 AM ED T eCW1 ([facility]) M54.42 763072828 Acute bilateral low back pain with left-s ided sciatica Problem 02/12/2020 12:00:00 AM EDT eCW1 ([facility]) M54.42 573231459 Acute bilateral low back pain with left-s ided sciatica Problem 02/12/2020 12:00:00 AM EDT eCW1 ([facility]) Surgeries/Procedures Procedure Description Date Indications Data Source(s) NO CHARGE VISIT 03/01/2020 12:00:00 AM EDT W ([facility]) Results ID Date Data Source [id number] 10/25/2020 10:04:00 AM EST [place] ([facility]) Name Value Range Interpretation Code Description Data Yesenia rce(s) Supporting Document(s) sars-cov-2 negative negative normal Sars-cov-2 [place] ([facility]) ID Date Data Source [id number] 10/25/2020 09:03:00 AM EST [facility] Name Value Range Interpretation Code Description Data Yesenia rce(s) Supporting Document(s) SARS coronavirus 2 RdRp gene [Presence] in Respiratory specimen by KITTY with probe detection Not detected [facility] This lab was ordered by [facility] and reported by [facility]. ID Date Data Source [id number] 07/26/2020 08:23:31 AM EDT [facility] Patient History Medical History:Anxiety DisorderCOPDDepressionDiabetes, Type 2Seizure as childSurgical History:stitches left knee.Tonsillectomy Cancer left calf removed 2012Family History:FH StrokeFH Other CancerFH Psychiatric CareSocial/Personal History:Smoking History:Patient has never smoked. Chief Complaint: Routine CleaningVisit Type: ExamCurrent Problems: DENTAL CARIES EXTENDING INTO PULP (ICD-521.03) (JPI59-S06.63)Health Screening (ICD-V70.0) (PWC42-T14.9)Neck pain-cervialgia (ICD-723.1) (XOX89-J52.2)Neuralgia (ICD-729.2) (QPK81-Y90.2)shoulder pain (ICD-719.41) (BCN76-G09.519)Sciatica (ICD-724.3) (GKN45-D51.30)Hip pain (ICD-719.45) (LYI04-U78.559)Health Screening (ICD-V70.0) (XZD40-O52.9)VENOUS INSUFFICIENCY, MILD (ICD-459.81) (SQE72-E76.2)DIABETES MELLITUS, WITH VASCULAR COMPLICATIONS (ICD-250.70) (RVF98-U33.59)SLEEP APNEA (ICD-780.57) (HRT47-Y01.30)ANTICOAGULATION RX (ICD-V58.61) (ICD10- Z79.01)CONTUSION OF HIP (ICD-924.01) (ASP34-Y73.00)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) (FGA04-U60.9)OTHER NONSPECIFIC ABNORMAL SERUM ENZYME LEVELS (ICD-790.5) (APW10-D42.8)COUGH (ICD-786.2) (OQJ56-W05)ALLERGIC RHINITIS (ICD-477.9) (HIO03-U32.9)CANDIDIASIS, ORAL (ICD-112.0) (CCL22-U03.0)SPE CIAL SCREENING FOR MALIGNANT NEOPLASMS COLON (ICD-V76.51) (ICD10- Z12.11)DERMATOPHYTOSIS OF FOOT (ICD-110.4) (MKU43-X50.3)SPECIAL SCREENING MALIGNANT NEOPLASM OF PROSTATE (ICD-V76.44) (OBG86-B13.5)PHYSICAL EXAMINATION (ICD-V70.0) (GMS73-T07.00)OBESITY (ICD-278.00) (FMA31-D82.9)UPPER RESPIRATORY INFECTION (ICD-465.9) (AIZ15-V24.9)DERMATITIS, SEBORRHEIC (ICD-690.10) (ICD10- L21.9)VITAMIN D DEFICIENCY (ICD-268.9) (ABF95-H07.9)UNSPECIFIED ARTHROPATHY ANKLE AND FOOT (ICD-716.97) (PQU72-D13.9)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) (VDR73-Q59.0)HYPERTENSION (ICD-401.9) (JNX04-T69)FH PSYCHIATRIC CARE (ICD-V17.0) (MDJ58-Z88.8)FH OTHER CANCER (ICD-V16.9) (FMK28-T69.9)FH STROKE (ICD-V17.1) (GTY08-D25.3)FH DIABETES (ICD-V18.0) (KIA38-G73.3)FH DEPRESSION (ICD-V17.0) (TUB46-W45.8)FH OF ANXIETY (ICD-V17.0) (BOS54-P41.8)DIABETES, TYPE 2 (ICD- 250.00) (MIU30-X68.9)DEPRESSION (ICD-311) (ONN67-F38.9)ANXIETY DISORDER (ICD- 300.00) (VWY22-F29.9)Problem list reviewed during this update.Current Medications: LANCETS [...] maxillary on Tooth # 1,2,3,4,5,6,7,8,9,10,11,12,13,14,15,16 (Performed by [facility] TERESAMontserrat) T - (D7140) Extraction, erupted tooth or exposed root (elevation and/or forceps removal) on Tooth # 4 (Performed by [facility] RDMontserrat) T - (D7140) Extraction, erupted tooth or exposed root (elevation and/ or forceps removal) on Tooth # 9 ([facility] T - (D7140) Extraction, erupted tooth or exposed root (elevation and/or forceps removal) on Tooth # 8 ([facility]) T - (D7140) Extraction, erupted tooth or exposed root (elevation and/or forceps removal) on Tooth # 14 (Performed by [facility] RDMontserrat) T - (D7140) Extraction, erupted tooth or exposed root (elevation and/or forceps removal) on Tooth # 10 (Performed by [facility] RDMontserrat) T - (D5120) Complete denture - mandibular on Tooth # 17,18,19,20,21,22,23,24,25,26,27,28,29,30,31,32 (Performed by Montserrat Callejas RDH) T - (D7140) Extraction, erupted tooth or exposed root (elevation and/or forceps removal) on Tooth # 13 (Performed by Montserrat Callejas RDH) T - (D7140) Extraction, erupted tooth or exposed root (elevation and/or forceps removal) on Tooth # 3 (Performed by Montserrat Callejas RDH) Existing:Type - CDT Code - Description[E] Missing - [place] and Root On #11 Surface I Region [...] XR Chart Notes:jm (Jul 26 2020 9:40AM): [facility](-). CC: I want dentures. Reviewed Xrays. Exam: [...] about brushing and flossing. NV: First impression. Maru PERDOMO, Montserrat by sonal (07/26/2020 9:01 AM): Tooth Notes and Watches: Assessment & Plan Allergies:No Known Allergies (updated 07/26/2020) Name Value Range Interpretation Code Description Data Yesenia rce(s) Supporting Document(s) ID Date Data Source [id number] 01/20/2020 04:25:00 PM EDT [facility] Name Value Range Interpretation Code Description Data Yesenia rce(s) Supporting Document(s) SARS CORONAVIRUS 2 RNA [facility] This lab was ordered by [facility] and reported by [facility]. Procedure Social History Code Duration Value Status Description Data Source(s ) Smoking 11/03/2020 12:00:00 AM EST Never Smoker completed Never S moker eCW1 ([facility]) Smoking 11/03/2020 12:00:00 AM EST Never Smoker completed Never S moker eCW1 ([facility]) Smoking 11/03/2020 12:00:00 AM EST Never Smoker completed Never S moker eCW1 ([facility]) Smoking 11/03/2020 12:00:00 AM EST Never Smoker completed Never S moker eCW1 ([facility]) Smoking 08/05/2020 12:00:00 AM EDT Never Smoker completed Never S moker eCW1 ([facility]) Smoking 08/05/2020 12:00:00 AM EDT Never Smoker completed Never S moker eCW1 ([facility]) Smoking 08/05/2020 12:00:00 AM EDT Never Smoker completed Never S moker eCW1 ([facility]) Smoking 08/05/2020 12:00:00 AM EDT Never Smoker completed Never S moker eCW1 ([facility]) Smoking 08/05/2020 12:00:00 AM EDT Never Smoker completed Never S moker eCW1 ([facility]) Smoking 03/12/2020 12:00:00 AM EDT Never Smoker completed Never S moker eCW1 ([facility]) Smoking 03/12/2020 12:00:00 AM EDT Never Smoker completed Never S moker eCW1 ([facility]) Smoking 03/12/2020 12:00:00 AM EDT Never Smoker completed Never S moker eCW1 ([facility]) Vital Signs ID Date Data Source UNK Name Value Range Interpretation Code Description Data Source(s) Diastolic blood pressure 80 mm[Hg] 80 mm[Hg] eCW1 ([facility]) Systolic blood pressure 140 mm[Hg] 140 mm[Hg] e CW1 ([facility]) Body temperature 98.1 [degF] 98.1 [degF] eCW1 ( [facility]) Respiratory rate 20 /min 20 /min eCW1 ([facility]) Heart rate 90 /min 90 /min eCW1 ([facility]) Body mass index (BMI) [Ratio] 43.69 kg/m2 43.69 kg/m2 eCW1 ([facility]) Body height 67 [in_i] 67 [in_i] eCW1 ([facility]) Body weight 279 [lb_av] 279 [lb_av] eCW1 ([facility]) Diastolic blood pressure 70 mm[Hg] 70 mm[Hg] eCW1 ([facility]) Systolic blood pressure 140 mm[Hg] 140 mm[Hg] e CW1 ([facility]) Body temperature 97.7 [degF] 97.7 [degF] eCW1 ( [facility]) Respiratory rate 20 /min 20 /min eCW1 ([facility]) Heart rate 88 /min 88 /min eCW1 ([facility]) Body mass index (BMI) [Ratio] 42.44 kg/m2 42.44 kg/m2 W1 ([facility]) Body height 67 [in_i] 67 [in_i] eCW1 ([facility]) Body weight 271 [lb_av] 271 [lb_av] eCW1 ([facility]) Body mass index (BMI) [Ratio] 42.3 kg/m2 42.3 k g/m2 [facility] ([facility] Heart rate 99 /min 99 /min [facility] ([facility] Diastolic blood pressure 82 mm[Hg] 82 mm[Hg] [facility] ([facility] Systolic blood pressure 160 mm[Hg] 160 mm[Hg] M EDENT ([facility] Body weight 270.00 [lb_av] 270.00 [lb_av] MEDEN T ([facility] Body height 67 [in_i] 67 [in_i] [facility] ([facility] 5'7" Diastolic blood pressure 76 mm[Hg] 76 mm[Hg] eCW1 ([facility]) Systolic blood pressure 132 mm[Hg] 132 mm[Hg] e CW1 ([facility]) Body temperature 97.0 [degF] 97.0 [degF] eCW1 ( [facility]) Respiratory rate 20 /min 20 /min eCW1 ([facility]) Heart rate 104 /min 104 /min eCW1 ([facility]) Body mass index (BMI) [Ratio] 43.38 kg/m2 43.38 kg/m2 eCW1 ([facility]) Body height 67 [in_i] 67 [in_i] eCW1 ([facility]) Body weight 277.0 [lb_av] 277.0 [lb_av] eCW1 ([facility]) Diastolic blood pressure 70 mm[Hg] 70 mm[Hg] eCW1 ([facility]) Systolic blood pressure 140 mm[Hg] 140 mm[Hg] e CW1 ([facility]) Body temperature 97.2 [degF] 97.2 [degF] eCW1 ( [facility]) Respiratory rate 20 /min 20 /min eCW1 ([facility]) Heart rate 90 /min 90 /min eCW1 ([facility]) Body mass index (BMI) [Ratio] 42.75 kg/m2 42.75 kg/m2 W1 ([facility]) Body height 67 [in_us] 67 [in_us] eCW1 ([facility]) Body weight Measured 273 [lb_av] 273 [lb_av] eC W1 ([facility]) Diastolic blood pressure 90 mm[Hg] 90 mm[Hg] eCW1 ([facility]) Systolic blood pressure 162 mm[Hg] 162 mm[Hg] e CW1 ([facility]) Body temperature 97.8 [degF] 97.8 [degF] eCW1 ( [facility]) Respiratory rate 20 /min 20 /min eCW1 ([facility]) Heart rate 96 /min 96 /min eCW1 ([facility]) Body mass index (BMI) [Ratio] 43.07 kg/m2 43.07 kg/m2 eCW1 ([facility]) Body height 67 [in_i] 67 [in_i] eCW1 ([facility]) Body weight 275 [lb_av] 275 [lb_av] eCW1 ([facility]) Diastolic blood pressure 70 mm[Hg] 70 mm[Hg] eCW1 ([facility]) Systolic blood pressure 116 mm[Hg] 116 mm[Hg] e CW1 ([facility]) Body temperature 98.0 [degF] 98.0 [degF] eCW1 ( [facility]) Respiratory rate 18 /min 18 /min eCW1 ([facility]) Heart rate 84 /min 84 /min eCW1 ([facility]) Body mass index (BMI) [Ratio] 42.13 kg/m2 42.13 kg/m2 eCW1 ([facility]) Body height 67 [in_us] 67 [in_us] eCW1 ([facility]) Body weight Measured 269.0 [lb_av] 269.0 [lb_av ] eCW1 ([facility]) Patient Treatment Plan of Care Planned Activity Planned Date Details Description Data Source (s) 0.5 ML dulaglutide 3 MG/ML Auto-Injector [Trulicity] 021 12:00:00 AM EST eCW1 ([facility]) Trulicity 3 MG/0.5ML 11/03/2020 12:00:00 AM EST eCW1 ([facility]) Trulicity 3 MG/0.5ML 11/03/2020 12:00:00 AM EST eCW1 ([facility]) Trulicity 3 MG/0.5ML 11/03/2020 12:00:00 AM EST eCW1 ([facility]) Ergocalciferol [id number] UNT Oral Capsule [Drisdol] 04/05/2020 12:00:00 AM EDT eCW1 ([facility]) Ergocalciferol 98240 UNT Oral Capsule [Drisdol] 04/05/2020 12:00:00 AM EDT eCW1 ([facility]) 0.5 ML dulaglutide 3 MG/ML Auto-Injector [Trulicity] 12:00:00 AM EDT eCW1 ([facility]) Tolnaftate 0.01 MG/MG Topical Powder 03/12/2020 12:00:00 AM EDT eCW1 ([facility]) Admelog 100 UNIT/ML 02/16/2020 12:00:00 AM EDT eCW1 ([facility]) Admelog 100 UNIT/ML 02/16/2020 12:00:00 AM EDT eCW1 ([facility]) Admelog 100 UNIT/ML 02/16/2020 12:00:00 AM EDT eCW1 ([facility]) Admelog 100 UNIT/ML 02/16/2020 12:00:00 AM EDT eCW1 ([facility]) Admelog 100 UNIT/ML 02/16/2020 12:00:00 AM EDT eCW1 ([facility]) Acetaminophen 500 MG Oral Tablet 02/12/2020 12:00:00 AM EDT eCW1 ([facility]) Acetaminophen 500 MG Oral Tablet 02/12/2020 12:00:00 AM EDT eCW1 ([facility]) Acetaminophen 500 MG Oral Tablet 02/12/2020 12:00:00 AM EDT eCW1 ([facility]) Acetaminophen 500 MG Oral Tablet 02/12/2020 12:00:00 AM EDT eCW1 ([facility]) Diclofenac Sodium 0.01 MG/MG Topical Gel 02/12/2020 12:00:00 AM EDT eCW1 ([facility]) Diclofenac Sodium 0.01 MG/MG Topical Gel 02/12/2020 12:00:00 AM EDT eCW1 ([facility]) Amlodipine 5 MG Oral Tablet 01/16/2020 12:00:00 AM EDT eCW1 ([facility]) Amoxicillin 875 MG / Clavulanate 125 MG Oral Tablet 10/21/19 12:00:00 AM EST eCW1 ([facility]) 0.5 ML dulaglutide 1.5 MG/ML Auto-Injector [Trulicity] 10/09/2019 12:00:00 AM EST eCW1 ([facility]) 0.5 ML dulaglutide 1.5 MG/ML Auto-Injector [Trulicity] 10/09/2019 12:00:00 AM EST eCW1 ([facility])
[2020-11-24 09:38] VITALS: BP 172/90
== END 2020-11-24 09:47 | disposition home or self-care (01) ==
LOC: M ED 07:52
DX: S80.02XA Contusion of left knee, initial encounter (principal); V18.9XXA Unspecified pedal cyclist injured in noncollision transport accident in traffic accident, initial encounter; Y92.410 Unspecified street and highway as the place of occurrence of the external cause; I10 Essential (primary) hypertension; E11.9 Type 2 diabetes mellitus without complications; J44.9 Chronic obstructive pulmonary disease, unspecified; J45.909 Unspecified asthma, uncomplicated; E78.00 Pure hypercholesterolemia, unspecified; F33.9 Major depressive disorder, recurrent, unspecified; F41.9 Anxiety disorder, unspecified; R56.9 Unspecified convulsions; G47.30 Sleep apnea, unspecified; Z79.899 Other long term (current) drug therapy; Z79.84 Long term (current) use of oral hypoglycemic drugs

== ENCOUNTER → 2021-01-05 | Outpatient (REF) | payer OTHER ==
[~2021-01-05] MED LIST changes: +CHLO125TA
[2021-01-05 11:28] LABS: SEMEN APPEARANCE OPAQUE (OPAQUE); SEMEN VISCOSITY LIQUID (LIQUID); SEMEN VOLUME 0.8 ml (2.0-5.0); SPERM CONCENTRATION 161.2 M/ml (>=15.0); WBC CONCENTRATION <=1 M/ml (<=1 M/ml)
== END ==
LOC: M SMT 11:06
PROVIDERS: ATTEND Nurse Practitioner Family
DX: N46.9 Male infertility, unspecified (principal)

== ENCOUNTER → 2021-01-07 | Outpatient (REF) | payer OTHER | LOC: M SMT 13:26 | PROVIDERS: ATTEND Urology | DX: N50.9 Disorder of male genital organs, unspecified (principal) ==

== ENCOUNTER → 2021-01-26 | Outpatient (REF) | payer OTHER ==
[2021-01-26 13:31] LABS: MALB URINE SIEMENS 12.4 MG/L; MAU/CREAT RATIO 6.9 MCG/MG (0.0-30.0)
[2021-01-26 16:09] LABS: ALT/SGPT 67 U/L (12-78); BILIRUBIN,TOTAL 0.6 MG/DL (0.2-1.0); BLOOD UREA NITROGEN 19 MG/DL (7-18); CALCIUM LEVEL 9.4 MG/DL (8.8-10.2); CARBON DIOXIDE LEVEL 26 MEQ/L (21-32); CHLORIDE LEVEL 103 MEQ/L (98-107); CHOLESTEROL LEVEL 95 MG/DL (<200); CHOLESTEROL RISK RATIO 2.968 (<5); CREATININE FOR GFR 1.21 MG/DL (0.70-1.30); GLOMERULAR FILTRATION RATE > 60.0 (>49); GLUCOSE, FASTING 155 MG/DL (70-100); HDL CHOLESTEROL 32 MG/DL (>40); NON-HDL-C 63 MG/DL; POTASSIUM SERUM 3.9 MEQ/L (3.5-5.1); SODIUM LEVEL 138 MEQ/L (136-145); TRIGLYCERIDES LEVEL 157 MG/DL (<150)
[2021-01-26 16:10] LABS: ALBUMIN 3.9 GM/DL (3.2-5.2); LDL CHOLESTEROL 32 MG/DL (<100); TOTAL 25(OH) VITAMIN D 46.9 NG/ML (30.0-100.0); TOTAL PROTEIN 6.8 GM/DL (6.4-8.2)
[2021-01-27 01:28] LABS: HEMOGLOBIN A1c 8.2 %
== END ==
LOC: M PLALAB 08:50
PROVIDERS: ATTEND Nurse Practitioner Family
DX: E11.65 Type 2 diabetes mellitus with hyperglycemia (principal); E78.2 Mixed hyperlipidemia; E55.9 Vitamin D deficiency, unspecified

== ENCOUNTER 2021-03-18 07:59 | Emergency (ER) | payer OTHER ==
[~2021-03-18] VITALS: Ht 170.2 cm; Wt 126.8 kg
[2021-03-18] MEDS ORDERED: TRAZ-252 (08:10)
[2021-03-18 10:00] LABS: BASO % 0.5 % (0.0-1.0); EOS # 0.3 10^3/uL (0.0-0.5); EOS % 4.7 % (0.0-3.0); HEMATOCRIT 45.6 % (42.0-52.0); HEMOGLOBIN 15.6 g/dl (13.5-17.5); LYMPH # 2.1 10^3/uL (1.5-5.0); LYMPH % 33.9 % (24.0-44.0); MEAN CORPUSCULAR HEMOGLOBIN 28.8 pg (27.0-33.0); MEAN CORPUSCULAR HGB CONC 34.2 g/dl (32.0-36.5); MEAN CORPUSCULAR VOLUME 84.1 fl (80.0-96.0); MONO # 0.7 10^3/uL (0.0-0.8); MONO % 10.9 % (2.0-8.0); NEUTROPHILS # 3.1 10^3/uL (1.5-8.5); NEUTROPHILS % 49.7 % (36.0-66.0); PLATELET COUNT, AUTOMATED 249 10^3/uL (150-450); RED BLOOD COUNT 5.42 10^6/uL (4.30-6.10); WHITE BLOOD COUNT 6.3 10^3/uL (4.0-10.0)
[2021-03-18] MEDS ORDERED: ISOVUE-370 76% 100ML VIAL As Ordered ONE (10:08)
[2021-03-18 10:30] LABS: ERYTHROCYTE SEDIMENTATION RATE 2 mm/hr (0-20)
--- NOTE | 2021-03-18 12:07 | REP ---
INDICATION: R facial swelling/lump/ttp. COMPARISON: CT neck 05/28/2019. TECHNIQUE: Axial CT maxillofacial region performed following the intravenous administration of 75 mL Isovue 370. Sagittal and coronal reconstruction images are performed. FINDINGS: There is asymmetric mild enlargement of the right masseter muscle. This has improved since the prior exam. There is an internal round fluid collection within the muscle 1.4 cm in diameter. This is smaller than on the prior study when it measured 2.1 cm in diameter. There does not appear to be significant asymmetric inflammation in the soft tissues bilaterally. Parotid and submandibular glands are unremarkable and unchanged. No significant adenopathy is seen in the soft tissues. The visualized airway is patent. There is no fracture or osseous destruction of the visualized osseous structures. There are tjpz-jv-movgmykc degenerative changes of the visualized cervical spine. The mastoid air cells are well aerated and clear. There is mild diffuse mucosal thickening in the right sphenoid and ethmoid sinuses. The frontal sinuses are hypoplastic. There is mild mucosal thickening in both maxillary sinuses inferiorly. There is mild mucosal thickening in both infundibular regions. IMPRESSION: Mild enlargement of the right masseter muscle has improved since the prior CT of 05/28/2019. Intramuscular fluid collection in the right masseter muscle is smaller than on the prior study, current measurement 1.4 cm in maximum diameter, previously 2.1 cm. Mild mucosal thickening in the paranasal sinuses. <Electronically signed by Keven Serra > 03/18/21 8828
[2021-03-18 14:55] VITALS: BP 156/88
--- NOTE | 2021-03-19 07:25 | ED PDOC ---
Post-Departure Follow-Up jed moreira and dr abreu faxed formal report of ct max fac for fu Radha Jewell MD Mar 19, 2021 07:25
== END 2021-03-18 14:59 | disposition home or self-care (01) ==
LOC: M ED 07:59
DX: K08.89 Other specified disorders of teeth and supporting structures (principal); E11.9 Type 2 diabetes mellitus without complications; I10 Essential (primary) hypertension; J44.9 Chronic obstructive pulmonary disease, unspecified; F33.9 Major depressive disorder, recurrent, unspecified; F41.9 Anxiety disorder, unspecified; F20.9 Schizophrenia, unspecified; G40.909 Epilepsy, unspecified, not intractable, without status epilepticus; G47.30 Sleep apnea, unspecified; Z79.899 Other long term (current) drug therapy; Z79.4 Long term (current) use of insulin
CPT/HCPCS: 36415; 70487; 80047; 85025; 85652; 86140; 99284; Q9967

== ENCOUNTER → 2021-04-30 | Outpatient (CLI) | payer OTHER ==
[~2021-04-30] MED LIST changes: +TRAZ-252
== END ==
LOC: M LABSMTC 09:42
PROVIDERS: ATTEND Anesthesiology
DX: Z01.812 Encounter for preprocedural laboratory examination (principal); Z11.52 Encounter for screening for COVID-19

== ENCOUNTER 2021-05-05 06:10 | Observation (INO) | payer OTHER ==
[2021-05-05] VITALS (8 sets, daily range): BP systolic 101–128; BP diastolic 69–79; O2SAT 90–93
[~2021-05-05] VITALS: Ht 170.2 cm; Wt 122.4 kg
[~2021-05-05 06:10] MED LIST changes: +DULA3PEN PO; +LIDOCAINE 1% MDV 20ML VIAL SQ PRN; +LORA-674 PO; +LR 1,000 ML IV ONE
[2021-05-05] MEDS ORDERED: LIDOCAINE 2% 100MG/5ML SDV (FOR ANES.) As Ordered ONE (07:21)
[2021-05-05] MEDS ORDERED: propofoL 200 MG/20 ML VIAL As Ordered ONE (07:21)
[2021-05-05] MEDS ORDERED: fentaNYL 250 MCG/5 ML INJECTION (J3010) As Ordered ONE (07:21)
[2021-05-05] MEDS ORDERED: MIDAZOLAM INJ 2MG/2ML VIAL (J2250 PER 1MG) As Ordered ONE (07:21)
[2021-05-05] MEDS ORDERED: ROCURONIUM BROMIDE 50 MG/5 ML VIAL As Ordered ONE (07:21)
[2021-05-05] MEDS ORDERED: LIDOCAINE W/EPINEPHRINE 1% 20ML VIAL As Ordered ONE (08:25)
[2021-05-05] MEDS ORDERED: BACITRACIN OINTMENT 30GM TUBE As Ordered ONE (08:25)
[2021-05-05] MEDS ORDERED: lisinopriL 40 MG TAB PO SCH (09:00)
[2021-05-05] MEDS ORDERED: METOPROLOL TART 50 MG TAB PO SCH (09:00)
[2021-05-05] MEDS: CHLORTHALIDONE 12.5MG PER 1/2 TABLET PO SCH (09:00)
[2021-05-05] MEDS ORDERED: VASOPRESSIN INJ 20 UNITS/ML VIAL As Ordered ONE (09:10)
[2021-05-05] MEDS ORDERED: ePHEDrine SULFATE 25 MG/5 ML(5MG/ML) SYRINGE As Ordered ONE (09:14)
[2021-05-05] MEDS ORDERED: PHENYLephrine 500MCG 5ML (100MCG/ML) SYRINGE As Ordered ONE (09:14)
[2021-05-05] MEDS ORDERED: LACRILUBE (AKWA TEARS) OPHTH OINT 3.5 GM As Ordered ONE (09:34)
[2021-05-05] MEDS ORDERED: KETOROLAC 60MG 2ML VIAL As Ordered ONE (09:47)
[2021-05-05] MEDS ORDERED: ONDANSETRON 4MG/2ML VIAL As Ordered ONE (09:47)
[2021-05-05] MEDS ORDERED: SUGAMMADEX SODIUM 500 MG/5 ML VIAL (BRIDION) As Ordered ONE (09:48)
[2021-05-05] MEDS ORDERED: dexameTHASONE 4 MG/ML 1ML VIAL (J1100 PER 1MG) As Ordered ONE (09:48)
[2021-05-05] MEDS ORDERED: HYDROmorphone HCL 2 MG/ML 1ML VIAL (J1170) As Ordered ONE (09:56)
[2021-05-05] MEDS ORDERED: METOCLOPRAMIDE INJ 10MG/2ML VIAL (J2765 PER 1) As Ordered ONE (09:59)
[2021-05-05] MEDS ORDERED: ACETAMINOPHEN 1000MG 100ML IV BTL (OFIRMEV) (J0131 PER 10MG) As Ordered ONE (10:43)
[2021-05-05] MEDS: LR 1,000 ML IV SCH (11:35)
[2021-05-05] MEDS ORDERED: ACETAMINOPH W/CODEINE #3 TAB UD PO PRN ×2 (11:35→14:25)
[2021-05-05] MEDS ORDERED: fentaNYL 100 MCG/2 ML INJECTION (J3010) IV PRN (11:45)
[2021-05-05] MEDS ORDERED: ONDANSETRON 4MG/2ML VIAL IV PRN (11:45)
[2021-05-05] MEDS ORDERED: LR 1,000 ML IV SCH (11:45)
[2021-05-05] MEDS ORDERED: oxyCODONE 5MG TAB PO PRN (11:45)
--- NOTE | 2021-05-05 12:41 | RO ---
OPERATIVE NOTE DATE OF OPERATION: 05/05/2021 PREOPERATIVE DIAGNOSIS: Right parotid tumor. POSTOPERATIVE DIAGNOSIS: Right parotid tumor. OPERATIVE PROCEDURE: Right superficial parotidectomy approach for removal of cyst. SURGEON: IGNACIO BAUTISTA MD FINDINGS: There was a mass within the masseter muscle on the right side. DESCRIPTION OF PROCEDURE: Under general anesthesia, with the patient intubated, the patient was prepped and draped in the usual manner. I did use a facial nerve monitor during the procedure. I made an incision in front of the ear, down into the neck. I elevated tissues off of the parotid and anteriorly. The mass was identified. I divided muscle overlying it. I identified the facial nerve branches inferior-superior, and these were stimulated with the nerve monitor, and moved out of the way. Then, using sharp and blunt dissection, I went around the mass. I dissected and it was just adjacent to the lateral aspect of the mandible. Bleeding was controlled with bipolar electrocautery. The patient tolerated the procedure well. There was less than 20 mL of estimated blood loss. The patient tolerated the procedure well. I put a quarter-inch Moiz drain into the wound and then closed the wound with 4-0 Mersilene and 5-0 nylon. The patient was extubated and transferred to the recovery room in excellent condition.
[2021-05-05] MEDS ORDERED: ACETAMINOPHEN TAB 650MG DOSE (2X325MG) PO PRN (13:55)
[2021-05-05] MEDS ORDERED: GLUCOSE 4GM CHEW TABLET PO PRN (13:55)
[2021-05-05] MEDS ORDERED: DEXTROSE 50% 50 ML SYRINGE IV PRN (13:55)
[2021-05-05] MEDS ORDERED: GLUCAGON INJ 1MG VIAL SC PRN (13:55)
[2021-05-05] MEDS ORDERED: traZODone 50 MG TAB PO PRN (13:55)
[2021-05-05] MEDS ORDERED: ALBUTEROL 90 MCG/ACT 8GM HFA INHALER INH PRN (13:55)
[2021-05-05] MEDS ORDERED: NAPROXEN 250 MG TAB PO PRN (13:55)
[2021-05-05] MEDS: ESCITALOPRAM OXALATE 5MG TABLET (LEXAPRO) PO SCH (15:04)
[2021-05-05] MEDS: LORATADINE 10 MG TAB PO SCH (15:04)
[2021-05-05] MEDS: ASPIRIN 81MG ENTERIC TABLET PO SCH (15:04)
--- NOTE | 2021-05-05 17:11 | HPEPDOC ---
[facility] Medical History & Physical Date of Admission May 05, 2021 Date of Service: May 05, 2021 Attending Physician: MOIRA NAVA MD History and Physical CHIEF COMPLAINT: R parotid tumor s/p resection HISTORY OF PRESENT ILLNESS: 60 yo M with a history of IDDM, morbid obesity, MCKENZIE, paranoid schizophrenia, HTN who is being admitted for observation s/p elective R parotid tumor resection by Dr. Calderon. On evaluation, he is on 2L, conversational and denies recent history of fever, chills, chest pain, palpitations, abdominal pain, nausea, emesis, diarrhea. Pain is well controlled at this time. PAST MEDICAL HISTORY: 1. Type 2 diabetes, reasonably good control recently. Last hemoglobin A1c was 8.1%. Earlier in the year it was 6.6. A year ago it was as high as 10.6, but he has gotten good control in the last year. 2. Hypertensive heart disease. 3. Obstructive sleep apnea (MCKENZIE), for which he does not wear continuous positive airway pressure (CPAP) and cancelled followup with pulmonary. 4. History of paranoid schizophrenia, for which he follows with [facility]/Dr. Gibbons. 5. Degenerative disc disease, lumbosacral spine. 6. Depression. 7. Vitamin D deficiency. SURGICAL HISTORY: 1. Left knee in 1982. 2. Had a biopsy done on his left calf in 1994. 3. Tonsillectomy as a child. 4. Just had a parotid tumor removal on the R. ROS: 10 point ROS was grossly negative, except the noted post surgical pain that is well controlled as noted in the HPI above. FAMILY HISTORY: Father with dementia, hypertension, diabetes, stroke. Mother from gastric cancer. SOCIAL HISTORY: Nonsmoker, with significant second-hand smoke exposure. No alcohol. Lives alone He is disabled ALLERGIES: None to any medicines. HOME MEDICATIONS: Please see below. PHYSICAL EXAMINATION: VITAL SIGNS: see below GENERAL APPEARANCE: NAD, morbidly obese HEENT: NCAT, with dressing around the face, EOMI, edentulous CARDIOVASCULAR: RRR, no noted murmurs LUNGS: CTAB, no wheezing, crackles or rhonchi, on 2L NS ABDOMEN: Obese, normoactive sounds, soft, NTND EXTREMITIES: WWP, no LE edema NEUROLOGICAL: Alert, awake, oriented x 3, moving all extremities, speech is clear PSYCHIATRIC: AOx3 LABORATORY DATA: None IMAGING: None MICROBIOLOGY: Please see below. ASSESSMENT: 60 yo M with a history of IDDM, morbid obesity, MCKENZIE, paranoid schizophrenia, HTN who is being admitted for observation s/p elective R parotid tumor resection by Dr. Calderon. PLAN: R parotid tumor resection: -POD0, pain is currently well controlled immediately post op -pain control with tylenol with codeine 1 tab q4hp for moderate to severe pain and Tylenol PRN for mild pain. -path and infectious studies sent by ENT -ENT consult, Dr Calderon -will place on continuous pulse oximetry post op MCKENZIE: -on supplemental O2 -will discuss CPAP use and settings DM: -continue 60 BID levemir -SSI ACHS -FSBG ACHS -hypoglycemia protocol -consistent carb diet HTN: -will resume antihypertensives tomorrow with chlorthalidone 12.5 QD, lisinopril 40 QD, metoprolol 50 BID HLD: -continue lipitor Paranoid schizophrenia and depression: -is on depot form of abilify Q4W -continue lexapro 5mg QD DVT ppx: TEDs and SCDs Vital Signs Vital Signs Date Time Temp Pulse Resp B/P (MAP) Pulse Ox O2 Delivery O2 Flow Rate FiO2 05/05/21 13:25 77 16 136/81 (99) 92 Nasal Cannula 2.0 05/05/21 12:35 97.0 Laboratory Data Labs 24H Laboratory Tests 2 05/05/21 07:28: Bedside Glucose (Misc Panel) 107 05/05/21 11:48: Bedside Glucose (Misc Panel) 151H Microbiology Microbiology 05/05/21 Anaerobic Culture, Received Pending 05/05/21 Gram Stain, Received Pending 05/05/21 Wound Culture, Received Pending Home Medications Scheduled Aripiprazole (Abilify Maintena) 400 Mg Suser.syr, 400 MG IM Q4WKS Aspirin (Aspirin EC) 81 Mg Tablet.dr, 81 MG PO DAILY Atorvastatin Calcium (Lipitor) 80 Mg Tab, 80 MG PO QHS Chlorthalidone (Chlorthalidone) 25 Mg Tablet, 12.5 MG DAILY Dulaglutide (Trulicity) 3 Mg/0.5 Ml Pen.injctr, 3 MG PO QWEEK Ergocalciferol (Vitamin D2) (Drisdol) 50,000 Unit Cap, 50,000 UNIT PO Q2WK TAKES ON THE AND Escitalopram Oxalate (Lexapro) 5 Mg Tab, 5 MG PO DAILY Guaifenesin (Mucinex) 600 Mg Tab.er.12h, 1 TAB PO BID for cough Insulin Glargine,Hum.rec.anlog (Basaglar Kwikpen U-100) 100 Unit/Ml Inj, 60 UNIT SC QAM Insulin Glargine,Hum.rec.anlog (Basaglar Kwikpen U-100) 100 Unit/Ml Inj, 60 UNIT SC QHS Insulin Human Lispro (Humalog) 1 Units/0.01 Ml Inj, 1 DOSE SC AC PER SLIDING SCALE Lisinopril (Lisinopril) 40 Mg Tab, 40 MG PO DAILY Loratadine (Loratadine) 10 Mg Tablet, 10 MG PO DAILY Metformin HCl (Metformin HCl) 1,000 Mg Tab, 1,000 MG PO BID Metoprolol Tartrate (Lopressor) 50 Mg Tablet, 50 MG PO BID Scheduled PRN Albuterol Sulfate (Ventolin Hfa) 18 Gm Hfa.aer.ad, 2 PUFF INH Q4-6HP PRN for wheezing Naproxen (Naproxen) 500 Mg Tablet.dr, 500 MG PO BID PRN for PAIN with food Miscellaneous Medications Trazodone HCl (Trazodone HCl) 50 Mg Tablet Allergies Coded Allergies: No Known Allergies (Verified , 05/04/21) A-FIB/CHADSVASC A-FIB History Current/History of A-Fib/PAF?: No Current PO Anticoag Therapy: No Age/Risk Factor Scoring CHADSVASC: CHADSVASC Response (Comments) Value Age Risk Factor Age < 65 years old 0 Gender Risk Factor Male 0 Hx of CHF No 0 Hx of HTN Yes 1 Hx of Stroke/TIA/or VTE No 0 Hx of Diabetes Yes 1 Hx of Vascular Disease No 0 Total 2 Treatment Treatment ordered: NONE Reason Anticoagulant not given: Not indicated/[id number] MOIRA NAVA MD May 05, 2021 14:28
[2021-05-05] MEDS: HumaLOG INSULIN (NovoLOG) PER UNIT SC SCH (18:47)
[2021-05-05] MEDS ORDERED: ATORVASTATIN 20 MG TAB PO SCH (21:00)
[2021-05-05] MEDS ORDERED: LEVEMIR (INSULIN DETEMIR) 1 UNITS/0.01ML SC SCH (21:00)
[2021-05-05] MEDS ORDERED: HumaLOG INSULIN (NovoLOG) PER UNIT SC SCH (21:00)
[2021-05-06] MEDS: LR 1,000 ML IV SCH ×2 (01:19→07:35)
[2021-05-06 02:00] VITALS: BP 141/74
[2021-05-06 06:00] VITALS: BP 130/72
[2021-05-06 06:18] LABS: HEMATOCRIT 39.2 % (42.0-52.0); HEMOGLOBIN 13.4 g/dl (13.5-17.5); MEAN CORPUSCULAR HEMOGLOBIN 28.8 pg (27.0-33.0); MEAN CORPUSCULAR HGB CONC 34.2 g/dl (32.0-36.5); MEAN CORPUSCULAR VOLUME 84.3 fl (80.0-96.0); PLATELET COUNT, AUTOMATED 197 10^3/uL (150-450); RED BLOOD COUNT 4.65 10^6/uL (4.30-6.10); WHITE BLOOD COUNT 8.9 10^3/uL (4.0-10.0)
[2021-05-06 06:44] LABS: BLOOD UREA NITROGEN 19 MG/DL (7-18); CALCIUM LEVEL 8.2 MG/DL (8.8-10.2); CARBON DIOXIDE LEVEL 34 MEQ/L (21-32); CHLORIDE LEVEL 103 MEQ/L (98-107); CREATININE FOR GFR 1.25 MG/DL (0.70-1.30); GLOMERULAR FILTRATION RATE > 60.0 (>49); GLUCOSE, FASTING 98 MG/DL (70-100); POTASSIUM SERUM 3.7 MEQ/L (3.5-5.1); SODIUM LEVEL 141 MEQ/L (136-145)
[2021-05-06] MEDS: HumaLOG INSULIN (NovoLOG) PER UNIT SC SCH ×2 (07:30→12:05)
--- NOTE | 2021-05-06 07:54 | DS.PDOC ---
Discharge Summary General Date of Admission May 05, 2021 at 13:51 Date of Discharge 05/06/2021 Attending Physician: MOIRA NAVA MD Discharge Summary PROCEDURES PERFORMED DURING STAY: R parotid tumor resection by Dr. Calderon on 05/05 ADMITTING DIAGNOSES: R parotid mass DISCHARGE DIAGNOSES: PAST MEDICAL HISTORY: 1. IDDM2 2. Hypertensive heart disease. 3. Obstructive sleep apnea (MCKENZIE), noncompliant with CPAP 4. History of paranoid schizophrenia 5. Degenerative disc disease, lumbosacral spine. 6. Depression. 7. Vitamin D deficiency. 8. R parotid mass now s/p resection HISTORY OF PRESENT ILLNESS: 60 yo M with a history of IDDM, morbid obesity, MCKENZIE, paranoid schizophrenia, HTN who was admitted for observation s/p elective R parotid tumor resection by Dr. Calderon. HOSPITAL COURSE: His course was uncomplicated and was placed on 2L O2 overnight for MCKENZIE non-compliant with CPAP without noted hypoxemia on continuous pulse oximetry. Pain was well controlled. He tolerated a consistent carb diet. AM labs on POD#1 were well wnl. He is now being discharged home with close ENT follow up as well as PCP follow up within 1 week of discharge. DISCHARGE MEDICATIONS: Please see below. ALLERGIES: Please see below. PHYSICAL EXAMINATION ON DISCHARGE: VITAL SIGNS: Please see below. GENERAL APPEARANCE: NAD, morbidly obese HEENT: NCAT, with dressing around the face, EOMI, edentulous CARDIOVASCULAR: RRR, no noted murmurs LUNGS: CTAB, no wheezing, crackles or rhonchi, on 2L NS ABDOMEN: Obese, normoactive sounds, soft, NTND EXTREMITIES: WWP, no LE edema NEUROLOGICAL: Alert, awake, oriented x 3, moving all extremities, speech is clear PSYCHIATRIC: AOx3 LABORATORY DATA: Please see below. IMAGING: None PROGNOSIS: Good ACTIVITY: As tolerated DIET: Consistent carb DISCHARGE PLAN: Home with close PCP and ENT follow up DISPOSITION: Home DISCHARGE INSTRUCTIONS: Home with close PCP and ENT follow up ITEMS TO FOLLOWUP ON ON OUTPATIENT: R parotid mass resection ENT follow up PCP follow up Psychiatry follow up per outpatient schedule DISCHARGE CONDITION: Stable TIME SPENT ON DISCHARGE: 34 minutes. Vital Signs/I&Os Vital Signs Date Time Temp Pulse Resp B/P (MAP) Pulse Ox O2 Delivery O2 Flow Rate FiO2 05/06/21 06:00 97.5 93 19 130/72 (91) 94 Nasal Cannula 2.0 I&O- Last 24 Hours up to 6 AM 05/06/21 06:00 Intake Total 3290 ml Output Total 770 ml Balance 2520 ml Laboratory Data Labs 24H Laboratory Tests 2 05/05/21 11:48: Bedside Glucose (Misc Panel) 151H 05/05/21 14:52: Bedside Glucose (Misc Panel) 137H 05/05/21 17:00: Bedside Glucose (Misc Panel) 179H 05/05/21 19:59: Bedside Glucose (Misc Panel) 177H 05/06/21 06:02: Nucleated Red Blood Cells % (auto) 0.0, Anion Gap 4L, Glomerular Filtration Rate > 60.0, Calcium Level 8.2L, Magnesium Level 2.0 CBC/BMP Laboratory Tests 05/06/21 06:02 FSBS Laboratory Tests Test 05/05/21 11:48 05/05/21 14:52 05/05/21 17:00 05/05/21 19:59 Range/Units Bedside Glucose (Misc Panel) 151 137 179 177 80-115 MG/DL Microbiology Microbiology 05/05/21 Anaerobic Culture, Received Pending 05/05/21 Gram Stain - Final, Resulted 05/05/21 Wound Culture, Resulted Pending Discharge Medications Scheduled Aripiprazole (Abilify Maintena) 400 Mg Suser.syr, 400 MG IM Q4WKS, (Reported) Aspirin (Aspirin EC) 81 Mg Tablet.dr, 81 MG PO DAILY, (Reported) Atorvastatin Calcium (Lipitor) 80 Mg Tab, 80 MG PO QHS, (Reported) Chlorthalidone (Chlorthalidone) 25 Mg Tablet, 12.5 MG DAILY, (Reported) Dulaglutide (Trulicity) 3 Mg/0.5 Ml Pen.injctr, 3 MG PO QWEEK, (Reported) Ergocalciferol (Vitamin D2) (Drisdol) 50,000 Unit Cap, 50,000 UNIT PO Q2WK, (Reported) TAKES ON THE AND Escitalopram Oxalate (Lexapro) 5 Mg Tab, 5 MG PO DAILY, (Reported) Guaifenesin (Mucinex) 600 Mg Tab.er.12h, 1 TAB PO BID for cough Insulin Glargine,Hum.rec.anlog (Basaglar Kwikpen U-100) 100 Unit/Ml Inj, 60 UNIT SC QAM, (Reported) Insulin Glargine,Hum.rec.anlog (Basaglar Kwikpen U-100) 100 Unit/Ml Inj, 60 UNIT SC QHS, (Reported) Insulin Human Lispro (Humalog) 1 Units/0.01 Ml Inj, 1 DOSE SC AC, (Reported) PER SLIDING SCALE Lisinopril (Lisinopril) 40 Mg Tab, 40 MG PO DAILY, (Reported) Loratadine (Loratadine) 10 Mg Tablet, 10 MG PO DAILY, (Reported) Metformin HCl (Metformin HCl) 1,000 Mg Tab, 1,000 MG PO BID, (Reported) Metoprolol Tartrate (Lopressor) 50 Mg Tablet, 50 MG PO BID Scheduled PRN Albuterol Sulfate (Ventolin Hfa) 18 Gm Hfa.aer.ad, 2 PUFF INH Q4-6HP PRN for wheezing, (Reported) Naproxen (Naproxen) 500 Mg Tablet.dr, 500 MG PO BID PRN for PAIN, (Reported) with food Miscellaneous Medications Trazodone HCl (Trazodone HCl) 50 Mg Tablet, (Reported) Allergies Coded Allergies: No Known Allergies (Verified , 05/04/21) MOIRA NAVA MD May 06, 2021 07:54
[2021-05-06] MEDS ORDERED: LEVEMIR (INSULIN DETEMIR) 1 UNITS/0.01ML SC SCH (09:00)
[2021-05-06] MEDS: CHLORTHALIDONE 12.5MG PER 1/2 TABLET PO SCH (09:00)
[2021-05-06] MEDS: ASPIRIN 81MG ENTERIC TABLET PO SCH (09:30)
[2021-05-06] MEDS: ESCITALOPRAM OXALATE 5MG TABLET (LEXAPRO) PO SCH (09:30)
[2021-05-06] MEDS: LORATADINE 10 MG TAB PO SCH (09:30)
[2021-05-06 09:31] VITALS: BP 147/75
[2021-05-06 10:00] VITALS: BP 147/75
[2021-05-06] MEDS ORDERED: AUGM875T28 PO (12:17)
[2021-05-06] MEDS ORDERED: BACIOIN5 OP (12:18)
--- NOTE | 2021-05-07 18:22 | ECGEPIP ---
[facility] Test Date: 2021-05-05 Pat Name: TORY LAGUNAS Department: Room: - Gender: Male Hide Inspector: REJI : 1960 Requested By: Julio Lopez Order Number: [id number] Reading MD: Attila Ugarte Measurements Intervals [place] Rate: 92 P: 2 NC: 190 QRS: 68 QRSD: 106 T: 9 QT: 358 QTc: 442 Interpretive Statements Normal sinus rhythm Non specific ST/T abnormality Mild IVCD Compared to prior tracings (3) in the system, no remarkable changes Electronically Signed on 05-07-2021 18:21:37 EDT by Attila Ugarte
== END 2021-05-06 12:25 | disposition home or self-care (01) ==
LOC: M SDC 06:10 → M MSPAV 13:51
PROVIDERS: ADMIT Internal Medicine; ATTEND Internal Medicine
DX: K09.8 Other cysts of oral region, not elsewhere classified (principal); E11.9 Type 2 diabetes mellitus without complications; F41.9 Anxiety disorder, unspecified; I11.9 Hypertensive heart disease without heart failure; F20.0 Paranoid schizophrenia; M51.37 Other intervertebral disc degeneration, lumbosacral region; E55.9 Vitamin D deficiency, unspecified; E78.00 Pure hypercholesterolemia, unspecified; L40.9 Psoriasis, unspecified; F32.9 Major depressive disorder, single episode, unspecified; G40.909 Epilepsy, unspecified, not intractable, without status epilepticus; J45.909 Unspecified asthma, uncomplicated; J44.9 Chronic obstructive pulmonary disease, unspecified; R06.83 Snoring; G47.33 Obstructive sleep apnea (adult) (pediatric); Z91.14 Patient's other noncompliance with medication regimen; Z79.899 Other long term (current) drug therapy; Z79.82 Long term (current) use of aspirin; Z79.4 Long term (current) use of insulin; Z79.1 Long term (current) use of non-steroidal anti-inflammatories (NSAID); Z77.22 Contact with and (suspected) exposure to environmental tobacco smoke (acute) (chronic)
CPT/HCPCS: 36415; 42410; 80048; 83735; 85027; 87070; 87075; 87077; 87186; 87205; 88304; 93005; J0131; J1170; J1885; J2250; J2370; J2405; J2765; J3010

== ENCOUNTER → 2021-05-17 | Outpatient (CLI) | payer OTHER ==
[~2021-05-17] MED LIST changes: +ATOR40TA75 PO; +AUGM875T28 PO; +BACIOIN5 OP; -CLIN150C15 PO; +CLIN150C17 PO; +GUAI5EL PO; -LIDOCAINE 1% MDV 20ML VIAL SQ PRN; -LR 1,000 ML IV ONE; +MED REC COMMENT; -TRAZ-252; +TRAZ-252 PO
[2021-05-17 12:46] LABS: ALT/SGPT 69 U/L (12-78); BILIRUBIN,TOTAL 0.9 MG/DL (0.2-1.0); BLOOD UREA NITROGEN 13 MG/DL (7-18); CALCIUM LEVEL 9.2 MG/DL (8.8-10.2); CARBON DIOXIDE LEVEL 31 MEQ/L (21-32); CHLORIDE LEVEL 103 MEQ/L (98-107); CREATININE FOR GFR 1.06 MG/DL (0.70-1.30); GLOMERULAR FILTRATION RATE > 60.0 (>49); GLUCOSE, FASTING 78 MG/DL (70-100); POTASSIUM SERUM 3.8 MEQ/L (3.5-5.1); SODIUM LEVEL 141 MEQ/L (136-145); TOTAL PROTEIN 6.8 GM/DL (6.4-8.2)
[2021-05-17 13:35] LABS: HEMOGLOBIN A1c 7.6 %
== END ==
LOC: M PLALAB 08:26
PROVIDERS: ATTEND Nurse Practitioner Family
DX: E11.65 Type 2 diabetes mellitus with hyperglycemia (principal); Z12.5 Encounter for screening for malignant neoplasm of prostate

== ENCOUNTER → 2021-07-11 | Outpatient (CLI) | payer OTHER ==
[~2021-07-11] MED LIST changes: -ATOR40TA75 PO; -GUAI5EL PO; -MED REC COMMENT; +TRAZ-252; -TRAZ-252 PO
[2021-07-11 10:04] LABS: BASO % 0.3 % (0.0-1.0); EOS # 0.2 10^3/uL (0.0-0.5); EOS % 3.2 % (0.0-3.0); HEMATOCRIT 42.6 % (42.0-52.0); HEMOGLOBIN 14.7 g/dl (13.5-17.5); LYMPH # 2.1 10^3/uL (1.5-5.0); LYMPH % 32.5 % (24.0-44.0); MEAN CORPUSCULAR HEMOGLOBIN 28.6 pg (27.0-33.0); MEAN CORPUSCULAR HGB CONC 34.5 g/dl (32.0-36.5); MEAN CORPUSCULAR VOLUME 82.9 fl (80.0-96.0); MONO # 0.7 10^3/uL (0.0-0.8); MONO % 10.6 % (2.0-8.0); NEUTROPHILS # 3.4 10^3/uL (1.5-8.5); NEUTROPHILS % 53.2 % (36.0-66.0); PLATELET COUNT, AUTOMATED 229 10^3/uL (150-450); RED BLOOD COUNT 5.14 10^6/uL (4.30-6.10); WHITE BLOOD COUNT 6.3 10^3/uL (4.0-10.0)
[2021-07-11 10:17] LABS: HEMOGLOBIN A1c 6.9 %
[2021-07-11 10:25] LABS: ALBUMIN 3.6 GM/DL (3.2-5.2); ALT/SGPT 54 U/L (12-78); BILIRUBIN,DIRECT 0.2 MG/DL (0.0-0.2); BILIRUBIN,TOTAL 0.6 MG/DL (0.2-1.0); BLOOD UREA NITROGEN 11 MG/DL (7-18); CALCIUM LEVEL 8.9 MG/DL (8.8-10.2); CARBON DIOXIDE LEVEL 32 MEQ/L (21-32); CHLORIDE LEVEL 104 MEQ/L (98-107); CHOLESTEROL LEVEL 117 MG/DL (<200); CHOLESTEROL RISK RATIO 3.545 (<5); CREATININE FOR GFR 1.12 MG/DL (0.70-1.30); GLOMERULAR FILTRATION RATE > 60.0 (>49); GLUCOSE, FASTING 126 MG/DL (70-100); GLUCOSE,RANDOM 126 MG/DL (LESS THAN 200); HDL CHOLESTEROL 33 MG/DL (>40); LDL CHOLESTEROL 62 MG/DL (<100); NON-HDL-C 84 MG/DL; PHOSPHORUS LEVEL 3.7 MG/DL (2.5-4.9); SODIUM LEVEL 139 MEQ/L (136-145); TOTAL PROTEIN 6.7 GM/DL (6.4-8.2); TRIGLYCERIDES LEVEL 112 MG/DL (<150)
[2021-07-11 10:38] LABS: TOTAL 25(OH) VITAMIN D 66.1 NG/ML (30.0-100.0)
== END ==
LOC: M LAB 09:09
PROVIDERS: ATTEND Registered Nurse
DX: F20.9 Schizophrenia, unspecified (principal)

== ENCOUNTER 2021-08-31 11:00 | Inpatient (IN) | payer OTHER ==
[~2021-08-31] VITALS: Ht 170.2 cm; Wt 113.0 kg
[~2021-08-31 11:00] MED LIST changes: -TRAZ-252; +TRAZ-252 PO
[2021-08-31] MEDS ORDERED: IPRATROPIUM 0.5MG/ALBUTEROL 2.5MG INH SOL UD 3ML (DUONEB) NEB ONE (11:25)
[2021-08-31 11:45] LABS: VENOUS BASE EXCESS 1.8 (-2.0-2.0); VENOUS O2 SATURATION 66.4 % (60.0-80.0); VENOUS PARTIAL PRESSURE CO2 49.6 mmHg (38.0-50.0); VENOUS PARTIAL PRESSURE O2 35.4 mmHg (30.0-50.0); VENOUS STANDARD HCO3 25.2 MEQ/L; VENOUS TOTAL CO2 29.6 MEQ/L (24.0-28.0)
[2021-08-31] MEDS: COMBIVENT RESPIMAT 100-20MCG INHALER 4GM INH PRN ×2 (11:50→12:41)
[2021-08-31] MEDS ORDERED: methylPREDNISolone 40MG 1ML VIAL IV ONE (11:50)
[2021-08-31 11:54] LABS: HEMATOCRIT 43.2 % (42.0-52.0); HEMOGLOBIN 14.8 g/dl (13.5-17.5); MEAN CORPUSCULAR HEMOGLOBIN 28.7 pg (27.0-33.0); MEAN CORPUSCULAR HGB CONC 34.3 g/dl (32.0-36.5); MEAN CORPUSCULAR VOLUME 83.9 fl (80.0-96.0); PLATELET COUNT, AUTOMATED 143 10^3/uL (150-450); RED BLOOD COUNT 5.15 10^6/uL (4.30-6.10); WHITE BLOOD COUNT 3.1 10^3/uL (4.0-10.0)
[2021-08-31] MEDS ORDERED: methylPREDNISolone 125MG 2ML VIAL IV ONE (11:55)
[2021-08-31 12:00] LABS: INR 1.02; PROTHROMBIN TIME 13.8 SECONDS (12.7-14.5)
[2021-08-31 12:03] LABS: D-DIMER QUANT 400.44 ng/ml (<500)
[2021-08-31 12:12] LABS: ATYPICAL LYMPH 8 % (0-5); LYMPHOCYTES 19 % (16-44); MONOCYTES 14 % (0-5); NEUTROPHILS 59 % (28-66); PLATELET ESTIMATE NORMAL (NORMAL)
[2021-08-31 12:13] LABS: ANISOCYTOSIS 1+
[2021-08-31 12:29] LABS: ALBUMIN 3.6 GM/DL (3.2-5.2); BILIRUBIN,DIRECT 0.3 MG/DL (0.0-0.2); BILIRUBIN,TOTAL 0.8 MG/DL (0.2-1.0); CALCIUM LEVEL 8.2 MG/DL (8.8-10.2); CREATININE FOR GFR 1.39 MG/DL (0.70-1.30); GLOMERULAR FILTRATION RATE 55.1 (>49); POTASSIUM SERUM 3.5 MEQ/L (3.5-5.1); TOTAL PROTEIN 6.8 GM/DL (6.4-8.2)
[2021-08-31 12:29] LABS: CK-MB VALUE MASS 3.7 NG/ML (<3.6); MB/CK RELATIVE INDEX 0.2 (< OR =4); TROPONIN I 0.02 NG/ML (< 0.10)
[2021-08-31 12:44] LABS: ABG BASE EXCESS 2.4 (-2.0-2.0); ABG HCO3 27.2 MEQ/L (22.0-26.0); ABG O2 SATURATION 93.9 % (95.0-99.0); ABG PARTIAL PRESSURE CO2 42.7 mmHg (35.0-45.0); ABG PARTIAL PRESSURE O2 67.7 mmHg (75.0-100.0); ABG STANDARD HCO3 26.5 MEQ/L (22.0-26.0); ABG TOTAL CO2 28.5 MEQ/L (23.0-31.0); ABG pH (ARTERIAL) 7.422 UNITS (7.350-7.450)
[2021-08-31] MEDS ORDERED: NS 500 ML IV ONE (12:55)
[2021-08-31] MEDS ORDERED: fentaNYL 100 MCG/2 ML INJECTION IV ONE (12:55)
[2021-08-31 13:04] LABS: RSV AMPLIFICATION NEGATIVE (NEGATIVE)
[2021-08-31] MEDS ORDERED: LIDOCAINE 5% (LIDODERM) PATCH TD ONE (13:45)
[2021-08-31] MEDS ORDERED: GLUCOSE 4GM CHEW TABLET PO PRN (13:55)
[2021-08-31] MEDS ORDERED: DEXTROSE 50% 50 ML SYRINGE IV PRN (13:55)
[2021-08-31] MEDS ORDERED: GLUCAGON INJ 1MG VIAL SC PRN (13:55)
[2021-08-31] MEDS ORDERED: cefTRIAXone SOD 1 GM in D5W MINI-BAG PLUS 50 ML IV SCH (15:00)
[2021-08-31 15:14] VITALS: BP 129/69
[2021-08-31] MEDS ORDERED: AZITHROMYCIN INJ 500 MG, VIAL MATE ADAPTER 1 EACH in NS 250 ML IV SCH (16:00)
[2021-08-31] MEDS: dexameTHASONE 4 MG/ML 1ML VIAL (J1100 PER 1MG) IV SCH (16:17)
[2021-08-31 16:41] VITALS: O2SAT 93
[2021-08-31] MEDS ORDERED: ACETAMINOPHEN TAB 650MG DOSE (2X325MG) PO ONE (17:00)
[2021-08-31] MEDS: BARICITINIB 2MG TABLET (OLUMIANT) FOR EUA PO SCH (18:00)
[2021-08-31] MEDS: HumaLOG INSULIN (NovoLOG) PER UNIT SC SCH ×2 (18:10→20:37)
[2021-08-31 20:00] VITALS: BP 117/64; O2SAT 92
[2021-08-31] MEDS: IPRATROPIUM 0.5MG/ALBUTEROL 2.5MG INH SOL UD 3ML (DUONEB) NEB SCH (20:00)
[2021-08-31] MEDS: **NOTE PATIENT COMMENT** MISC XX SCH (20:21)
[2021-08-31] MEDS ORDERED: hydrALAZINE 20MG/ML 1ML VIAL (J0360 PER 20MG) IV PRN (20:40)
[2021-08-31] MEDS: LEVEMIR (INSULIN DETEMIR) 1 UNITS/0.01ML SC SCH (20:44)
[2021-08-31] MEDS: HEPARIN SOD (PORCINE) 5000UNITS/ML 1ML VIAL/SYRINGE SQ SCH (20:44)
[2021-08-31] MEDS: METOPROLOL TART 50 MG TAB PO SCH (22:28)
[2021-09-01] VITALS (8 sets, daily range): BP systolic 115–130; BP diastolic 53–68; O2SAT 92–94
[2021-09-01] MEDS: IPRATROPIUM 0.5MG/ALBUTEROL 2.5MG INH SOL UD 3ML (DUONEB) NEB SCH ×6 (01:12→20:01)
[2021-09-01] MEDS: HEPARIN SOD (PORCINE) 5000UNITS/ML 1ML VIAL/SYRINGE SQ SCH ×3 (04:21→21:44)
[2021-09-01 06:29] LABS: HEMATOCRIT 41.3 % (42.0-52.0); HEMOGLOBIN 14.2 g/dl (13.5-17.5); MEAN CORPUSCULAR HEMOGLOBIN 29.1 pg (27.0-33.0); MEAN CORPUSCULAR HGB CONC 34.4 g/dl (32.0-36.5); MEAN CORPUSCULAR VOLUME 84.6 fl (80.0-96.0); PLATELET COUNT, AUTOMATED 165 10^3/uL (150-450); RED BLOOD COUNT 4.88 10^6/uL (4.30-6.10); WHITE BLOOD COUNT 1.6 10^3/uL (4.0-10.0)
[2021-09-01 06:50] LABS: BLOOD UREA NITROGEN 23 MG/DL (7-18); C REACTIVE PROTEIN QUANTITATIV 4.15 MG/DL (0.00-0.30); CALCIUM LEVEL 7.6 MG/DL (8.8-10.2); CARBON DIOXIDE LEVEL 30 MEQ/L (21-32); CHLORIDE LEVEL 99 MEQ/L (98-107); CREATININE FOR GFR 1.22 MG/DL (0.70-1.30); GLOMERULAR FILTRATION RATE > 60.0 (>49); GLUCOSE, FASTING 264 MG/DL (70-100); MAGNESIUM LEVEL 2.5 MG/DL (1.8-2.4); PHOSPHORUS LEVEL 2.6 MG/DL (2.5-4.9); POTASSIUM SERUM 3.7 MEQ/L (3.5-5.1); SODIUM LEVEL 136 MEQ/L (136-145)
[2021-09-01 07:04] LABS: ATYPICAL LYMPH 2 % (0-5); LYMPHOCYTES 40 % (16-44); MONOCYTES 13 % (0-5); NEUTROPHILS 45 % (28-66); PLATELET ESTIMATE NORMAL (NORMAL)
[2021-09-01] MEDS: HumaLOG INSULIN (NovoLOG) PER UNIT SC SCH ×4 (07:30→21:59)
[2021-09-01] MEDS: BARICITINIB 2MG TABLET (OLUMIANT) FOR EUA PO SCH (09:04)
[2021-09-01] MEDS: dexameTHASONE 4 MG/ML 1ML VIAL (J1100 PER 1MG) IV SCH (09:06)
[2021-09-01] MEDS: METOPROLOL TART 50 MG TAB PO SCH ×2 (09:06→21:43)
[2021-09-01] MEDS: LEVEMIR (INSULIN DETEMIR) 1 UNITS/0.01ML SC SCH ×2 (09:06→21:44)
[2021-09-01] MEDS ORDERED: ATOR40TA75 PO (09:32)
[2021-09-01] MEDS ORDERED: METO50TA7 PO (09:32)
[2021-09-01] MEDS ORDERED: GUAI5EL PO (09:32)
[2021-09-01] MEDS ORDERED: DRIS50003 PO (09:32)
[2021-09-01] MEDS ORDERED: HOME MED LIST COMPLETE! XX SCH (09:35)
[2021-09-01] MEDS ORDERED: MED REC COMMENT (11:24)
[2021-09-01] MEDS ORDERED: REMDESIVIR 200 MG in NS 250 ML IV ONE (14:00)
[2021-09-01] MEDS ORDERED: SODIUM CHLORIDE 0.9% INJ 10 ML SYR IV ONE (15:00)
[2021-09-01] MEDS: **NOTE PATIENT COMMENT** MISC XX SCH (21:44)
[2021-09-01] MEDS: guaiFENesin ER 600 MG TAB PO SCH (21:59)
[2021-09-01 22:11] LABS: ABG BASE EXCESS 0.2 (-2.0-2.0); ABG HCO3 26.2 MEQ/L (22.0-26.0); ABG O2 SATURATION 94.6 % (95.0-99.0); ABG PARTIAL PRESSURE CO2 47.7 mmHg (35.0-45.0); ABG PARTIAL PRESSURE O2 77.6 mmHg (75.0-100.0); ABG STANDARD HCO3 24.6 MEQ/L (22.0-26.0); ABG TOTAL CO2 27.7 MEQ/L (23.0-31.0); ABG pH (ARTERIAL) 7.358 UNITS (7.350-7.450)
[2021-09-02] VITALS (16 sets, daily range): BP systolic 106–157; BP diastolic 64–83; O2SAT 85–93
[2021-09-02] MEDS: IPRATROPIUM 0.5MG/ALBUTEROL 2.5MG INH SOL UD 3ML (DUONEB) NEB SCH ×6 (00:04→19:18)
[2021-09-02] MEDS: HEPARIN SOD (PORCINE) 5000UNITS/ML 1ML VIAL/SYRINGE SQ SCH ×3 (05:11→21:09)
[2021-09-02 05:34] LABS: VENOUS BASE EXCESS 4.5 (-2.0-2.0); VENOUS HCO3 29.5 MEQ/L (23.0-27.0); VENOUS O2 SATURATION 98.3 % (60.0-80.0); VENOUS PARTIAL PRESSURE CO2 44.8 mmHg (38.0-50.0); VENOUS PARTIAL PRESSURE O2 121.5 mmHg (30.0-50.0); VENOUS PH 7.436 UNITS (7.330-7.430); VENOUS STANDARD HCO3 28.5 MEQ/L; VENOUS TOTAL CO2 30.8 MEQ/L (24.0-28.0)
[2021-09-02 05:40] LABS: HEMATOCRIT 43.7 % (42.0-52.0); HEMOGLOBIN 15.1 g/dl (13.5-17.5); LYMPH # 0.6 10^3/uL (1.5-5.0); LYMPH % 7.8 % (24.0-44.0); MEAN CORPUSCULAR HEMOGLOBIN 28.7 pg (27.0-33.0); MEAN CORPUSCULAR HGB CONC 34.6 g/dl (32.0-36.5); MEAN CORPUSCULAR VOLUME 82.9 fl (80.0-96.0); MONO # 0.6 10^3/uL (0.0-0.8); MONO % 7.5 % (2.0-8.0); NEUTROPHILS # 6.3 10^3/uL (1.5-8.5); NEUTROPHILS % 84.4 % (36.0-66.0); PLATELET COUNT, AUTOMATED 209 10^3/uL (150-450); RED BLOOD COUNT 5.27 10^6/uL (4.30-6.10); WHITE BLOOD COUNT 7.4 10^3/uL (4.0-10.0)
[2021-09-02 05:50] LABS: PROTHROMBIN TIME 13.6 SECONDS (12.7-14.5)
[2021-09-02 05:51] LABS: PARTIAL THROMBOPLASTIN TIME 33.9 SECONDS (25.9-37.0)
[2021-09-02 06:21] LABS: ALBUMIN 3.3 GM/DL (3.2-5.2); ALT/SGPT 85 U/L (12-78); BILIRUBIN,DIRECT 0.3 MG/DL (0.0-0.2); BILIRUBIN,TOTAL 0.5 MG/DL (0.2-1.0); BLOOD UREA NITROGEN 24 MG/DL (7-18); CALCIUM LEVEL 8.1 MG/DL (8.8-10.2); CARBON DIOXIDE LEVEL 30 MEQ/L (21-32); CHLORIDE LEVEL 106 MEQ/L (98-107); FERRITIN 793 NG/ML (26-388); GLOMERULAR FILTRATION RATE > 60.0 (>49); GLUCOSE, FASTING 59 MG/DL (70-100); LDH LACTATE DEHYDROGENASE 619 U/L (87-241); MAGNESIUM LEVEL 2.7 MG/DL (1.8-2.4); NT-PRO BNP 687 PG/ML (<125); PHOSPHORUS LEVEL 2.4 MG/DL (2.5-4.9); POTASSIUM SERUM 3.9 MEQ/L (3.5-5.1); SODIUM LEVEL 142 MEQ/L (136-145); TOTAL PROTEIN 6.6 GM/DL (6.4-8.2)
[2021-09-02 06:26] LABS: TROPONIN I 0.02 NG/ML (< 0.10)
[2021-09-02] MEDS: HumaLOG INSULIN (NovoLOG) PER UNIT SC SCH ×4 (08:00→21:16)
[2021-09-02] MEDS: LEVEMIR (INSULIN DETEMIR) 1 UNITS/0.01ML SC SCH ×2 (09:00→20:41)
[2021-09-02] MEDS: METOPROLOL TART 50 MG TAB PO SCH ×2 (09:16→21:10)
[2021-09-02] MEDS: dexameTHASONE 4 MG/ML 1ML VIAL (J1100 PER 1MG) IV SCH (09:16)
[2021-09-02] MEDS: BARICITINIB 2MG TABLET (OLUMIANT) FOR EUA PO SCH (09:16)
[2021-09-02] MEDS: guaiFENesin ER 600 MG TAB PO SCH ×2 (09:16→21:10)
[2021-09-02] MEDS: REMDESIVIR 100 MG in NS 250 ML IV SCH (14:17)
[2021-09-02] MEDS: SODIUM CHLORIDE 0.9% INJ 10 ML SYR IV SCH (14:18)
[2021-09-02] MEDS ORDERED: K-PHOS ORIGINAL (POT.ACID PHOSPHATE) 500MG TAB PO ONE (15:00)
[2021-09-02 16:09] LABS: MYCOPLASMA PNEUMONIAE IgG 340 U/mL (0-99); MYCOPLASMA PNEUMONIAE IgM <770 U/mL (0-769)
[2021-09-02] MEDS: **NOTE PATIENT COMMENT** MISC XX SCH (21:09)
[2021-09-03] VITALS: BP 154/85; O2SAT 91
[2021-09-03] MEDS: IPRATROPIUM 0.5MG/ALBUTEROL 2.5MG INH SOL UD 3ML (DUONEB) NEB SCH ×6 (00:46→19:28)
[2021-09-03 04:00] VITALS: BP 155/90; O2SAT 93
[2021-09-03 04:43] LABS: HEMATOCRIT 43.8 % (42.0-52.0); LYMPH # 0.7 10^3/uL (1.5-5.0); LYMPH % 12.6 % (24.0-44.0); MEAN CORPUSCULAR HEMOGLOBIN 28.8 pg (27.0-33.0); MEAN CORPUSCULAR HGB CONC 34.2 g/dl (32.0-36.5); MEAN CORPUSCULAR VOLUME 84.1 fl (80.0-96.0); MONO # 0.8 10^3/uL (0.0-0.8); MONO % 14.2 % (2.0-8.0); NEUTROPHILS # 3.9 10^3/uL (1.5-8.5); NEUTROPHILS % 72.6 % (36.0-66.0); PLATELET COUNT, AUTOMATED 221 10^3/uL (150-450); RED BLOOD COUNT 5.21 10^6/uL (4.30-6.10); WHITE BLOOD COUNT 5.3 10^3/uL (4.0-10.0)
[2021-09-03 05:01] LABS: BLOOD UREA NITROGEN 22 MG/DL (7-18); CALCIUM LEVEL 7.8 MG/DL (8.8-10.2); CARBON DIOXIDE LEVEL 30 MEQ/L (21-32); CHLORIDE LEVEL 104 MEQ/L (98-107); CREATININE FOR GFR 0.97 MG/DL (0.70-1.30); GLOMERULAR FILTRATION RATE > 60.0 (>49); GLUCOSE, FASTING 249 MG/DL (70-100); MAGNESIUM LEVEL 2.5 MG/DL (1.8-2.4); PHOSPHORUS LEVEL 2.7 MG/DL (2.5-4.9); POTASSIUM SERUM 4.3 MEQ/L (3.5-5.1); SODIUM LEVEL 140 MEQ/L (136-145)
[2021-09-03] MEDS: HEPARIN SOD (PORCINE) 5000UNITS/ML 1ML VIAL/SYRINGE SQ SCH ×3 (06:19→21:07)
[2021-09-03 08:00] VITALS: BP 153/83; O2SAT 93
[2021-09-03] MEDS ORDERED: MORPHINE 2 MG/ML 1ML VIAL (J2270) IV ONE (08:05)
[2021-09-03] MEDS: HumaLOG INSULIN (NovoLOG) PER UNIT SC SCH ×4 (08:22→21:07)
[2021-09-03] MEDS: METOPROLOL TART 50 MG TAB PO SCH ×2 (09:25→21:06)
[2021-09-03] MEDS: guaiFENesin ER 600 MG TAB PO SCH ×2 (09:25→21:06)
[2021-09-03] MEDS: BARICITINIB 2MG TABLET (OLUMIANT) FOR EUA PO SCH (09:26)
[2021-09-03] MEDS: dexameTHASONE 4 MG/ML 1ML VIAL (J1100 PER 1MG) IV SCH (09:27)
[2021-09-03] MEDS: LEVEMIR (INSULIN DETEMIR) 1 UNITS/0.01ML SC SCH ×2 (09:27→21:06)
[2021-09-03 12:00] VITALS: BP 146/81; O2SAT 95
[2021-09-03] MEDS: REMDESIVIR 100 MG in NS 250 ML IV SCH (14:48)
[2021-09-03 16:00] VITALS: BP 160/89; O2SAT 92
[2021-09-03] MEDS: SODIUM CHLORIDE 0.9% INJ 10 ML SYR IV SCH (17:51)
[2021-09-03] MEDS: SODIUM CHLORIDE NASAL 0.65% SPRAY BTL (OCEAN) PRN (18:20)
[2021-09-03 20:00] VITALS: BP 148/86; O2SAT 93
[2021-09-03] MEDS: **NOTE PATIENT COMMENT** MISC XX SCH (21:07)
[2021-09-04] VITALS (8 sets, daily range): BP systolic 128–163; BP diastolic 70–92; O2SAT 92–95
[2021-09-04] MEDS: IPRATROPIUM 0.5MG/ALBUTEROL 2.5MG INH SOL UD 3ML (DUONEB) NEB SCH ×7 (00:29→23:55)
[2021-09-04 05:05] LABS: HEMATOCRIT 44.5 % (42.0-52.0); HEMOGLOBIN 14.9 g/dl (13.5-17.5); MEAN CORPUSCULAR HEMOGLOBIN 28.6 pg (27.0-33.0); MEAN CORPUSCULAR HGB CONC 33.5 g/dl (32.0-36.5); MEAN CORPUSCULAR VOLUME 85.4 fl (80.0-96.0); PLATELET COUNT, AUTOMATED 238 10^3/uL (150-450); RED BLOOD COUNT 5.21 10^6/uL (4.30-6.10); WHITE BLOOD COUNT 7.4 10^3/uL (4.0-10.0)
[2021-09-04 05:14] LABS: INR 1.05; PROTHROMBIN TIME 14.1 SECONDS (12.7-14.5)
[2021-09-04 05:15] LABS: PARTIAL THROMBOPLASTIN TIME 31.1 SECONDS (25.9-37.0)
[2021-09-04 05:26] LABS: CPK CREATINE PHOSPHOKINASE 684 U/L (39-308); TROPONIN I < 0.02 NG/ML (< 0.10)
[2021-09-04 05:35] LABS: ATYPICAL LYMPH 4 % (0-5); LYMPHOCYTES 10 % (16-44); MONOCYTES 7 % (0-5); NEUTROPHILS 79 % (28-66); PLATELET ESTIMATE NORMAL (NORMAL)
[2021-09-04 05:40] LABS: ALT/SGPT 75 U/L (12-78); BILIRUBIN,DIRECT 0.2 MG/DL (0.0-0.2); BILIRUBIN,TOTAL 0.6 MG/DL (0.2-1.0); BLOOD UREA NITROGEN 22 MG/DL (7-18); CALCIUM LEVEL 8.3 MG/DL (8.8-10.2); CARBON DIOXIDE LEVEL 33 MEQ/L (21-32); CHLORIDE LEVEL 103 MEQ/L (98-107); CREATININE FOR GFR 1.05 MG/DL (0.70-1.30); FERRITIN 830 NG/ML (26-388); GLOMERULAR FILTRATION RATE > 60.0 (>49); GLUCOSE, FASTING 159 MG/DL (70-100); LDH LACTATE DEHYDROGENASE 776 U/L (87-241); MAGNESIUM LEVEL 2.7 MG/DL (1.8-2.4); NT-PRO BNP 613 PG/ML (<125); PHOSPHORUS LEVEL 3.2 MG/DL (2.5-4.9); POTASSIUM SERUM 4.5 MEQ/L (3.5-5.1); SODIUM LEVEL 139 MEQ/L (136-145); TOTAL PROTEIN 6.3 GM/DL (6.4-8.2)
[2021-09-04] MEDS: HEPARIN SOD (PORCINE) 5000UNITS/ML 1ML VIAL/SYRINGE SQ SCH ×3 (06:10→20:46)
[2021-09-04] MEDS: LEVEMIR (INSULIN DETEMIR) 1 UNITS/0.01ML SC SCH ×2 (10:15→20:45)
[2021-09-04] MEDS: HumaLOG INSULIN (NovoLOG) PER UNIT SC SCH ×4 (10:16→20:44)
[2021-09-04] MEDS: BARICITINIB 2MG TABLET (OLUMIANT) FOR EUA PO SCH (10:17)
[2021-09-04] MEDS: guaiFENesin ER 600 MG TAB PO SCH ×2 (10:17→20:43)
[2021-09-04] MEDS: METOPROLOL TART 50 MG TAB PO SCH ×2 (10:18→20:43)
[2021-09-04] MEDS: dexameTHASONE 4 MG/ML 1ML VIAL (J1100 PER 1MG) IV SCH (10:19)
[2021-09-04] MEDS: lisinopriL 40 MG TAB PO SCH (10:39)
[2021-09-04] MEDS: REMDESIVIR 100 MG in NS 250 ML IV SCH (14:33)
[2021-09-04] MEDS: SODIUM CHLORIDE 0.9% INJ 10 ML SYR IV SCH (15:42)
[2021-09-04] MEDS: **NOTE PATIENT COMMENT** MISC XX SCH (20:45)
[2021-09-05] VITALS (10 sets, daily range): BP systolic 136–166; BP diastolic 67–81; O2SAT 90–97
[2021-09-05] MEDS: IPRATROPIUM 0.5MG/ALBUTEROL 2.5MG INH SOL UD 3ML (DUONEB) NEB SCH ×5 (03:48→19:22)
[2021-09-05 04:32] LABS: HEMOGLOBIN 15.2 g/dl (13.5-17.5); MEAN CORPUSCULAR HEMOGLOBIN 28.6 pg (27.0-33.0); MEAN CORPUSCULAR HGB CONC 33.8 g/dl (32.0-36.5); MEAN CORPUSCULAR VOLUME 84.7 fl (80.0-96.0); PLATELET COUNT, AUTOMATED 322 10^3/uL (150-450); RED BLOOD COUNT 5.31 10^6/uL (4.30-6.10); WHITE BLOOD COUNT 11.8 10^3/uL (4.0-10.0)
[2021-09-05 04:54] LABS: BLOOD UREA NITROGEN 19 MG/DL (7-18); CALCIUM LEVEL 8.3 MG/DL (8.8-10.2); CARBON DIOXIDE LEVEL 32 MEQ/L (21-32); CHLORIDE LEVEL 105 MEQ/L (98-107); CREATININE FOR GFR 0.87 MG/DL (0.70-1.30); GLOMERULAR FILTRATION RATE > 60.0 (>49); GLUCOSE, FASTING 53 MG/DL (70-100); MAGNESIUM LEVEL 2.5 MG/DL (1.8-2.4); PHOSPHORUS LEVEL 4.2 MG/DL (2.5-4.9); POTASSIUM SERUM 4.3 MEQ/L (3.5-5.1); SODIUM LEVEL 142 MEQ/L (136-145)
[2021-09-05 04:58] LABS: EOSINOPHILS 1 % (0-3); LYMPHOCYTES 7 % (16-44); MONOCYTES 7 % (0-5); NEUTROPHILS 85 % (28-66); PLATELET ESTIMATE NORMAL (NORMAL)
[2021-09-05] MEDS: HEPARIN SOD (PORCINE) 5000UNITS/ML 1ML VIAL/SYRINGE SQ SCH ×3 (06:15→21:15)
[2021-09-05] MEDS: HumaLOG INSULIN (NovoLOG) PER UNIT SC SCH ×4 (07:30→21:00)
[2021-09-05] MEDS: guaiFENesin ER 600 MG TAB PO SCH (09:29)
[2021-09-05] MEDS: METOPROLOL TART 50 MG TAB PO SCH ×2 (09:29→21:14)
[2021-09-05] MEDS: lisinopriL 40 MG TAB PO SCH (09:30)
[2021-09-05] MEDS: BARICITINIB 2MG TABLET (OLUMIANT) FOR EUA PO SCH (09:30)
[2021-09-05] MEDS: dexameTHASONE 4 MG/ML 1ML VIAL (J1100 PER 1MG) IV SCH (09:31)
[2021-09-05] MEDS: SODIUM CHLORIDE NASAL 0.65% SPRAY BTL (OCEAN) PRN ×3 (12:02→16:54)
[2021-09-05] MEDS: REMDESIVIR 100 MG in NS 250 ML IV SCH (13:20)
[2021-09-05] MEDS: SODIUM CHLORIDE 0.9% INJ 10 ML SYR IV SCH (14:33)
[2021-09-05 17:09] LABS: BODY FLUID CULTURE Not indicated. (.); LEGIONELLA ANTIGEN URINE Negative (Negative); ORGANISM ID Not indicated. (.); SPECIMEN SOURCE Urine (.); URINE STREP PNEUMONIAE ANTIGEN Negative (Negative)
[2021-09-05] MEDS: **NOTE PATIENT COMMENT** MISC XX SCH (21:15)
[2021-09-06] VITALS (8 sets, daily range): BP systolic 119–140; BP diastolic 66–75; O2SAT 90–94
[2021-09-06] MEDS: IPRATROPIUM 0.5MG/ALBUTEROL 2.5MG INH SOL UD 3ML (DUONEB) NEB SCH ×7 (04:16→23:34)
[2021-09-06 04:52] LABS: BASO % 0.1 % (0.0-1.0); HEMATOCRIT 44.8 % (42.0-52.0); HEMOGLOBIN 14.9 g/dl (13.5-17.5); LYMPH # 0.8 10^3/uL (1.5-5.0); LYMPH % 6.9 % (24.0-44.0); MEAN CORPUSCULAR HEMOGLOBIN 28.4 pg (27.0-33.0); MEAN CORPUSCULAR HGB CONC 33.3 g/dl (32.0-36.5); MEAN CORPUSCULAR VOLUME 85.3 fl (80.0-96.0); MONO # 0.5 10^3/uL (0.0-0.8); MONO % 4.2 % (2.0-8.0); NEUTROPHILS # 10.3 10^3/uL (1.5-8.5); NEUTROPHILS % 88.3 % (36.0-66.0); PLATELET COUNT, AUTOMATED 340 10^3/uL (150-450); RED BLOOD COUNT 5.25 10^6/uL (4.30-6.10); WHITE BLOOD COUNT 11.6 10^3/uL (4.0-10.0)
[2021-09-06 05:04] LABS: INR 1.26; PARTIAL THROMBOPLASTIN TIME 28.2 SECONDS (25.9-37.0); PROTHROMBIN TIME 16.2 SECONDS (12.7-14.5)
[2021-09-06 05:09] LABS: CPK CREATINE PHOSPHOKINASE 784 U/L (39-308); TROPONIN I < 0.02 NG/ML (< 0.10)
[2021-09-06 05:19] LABS: ALT/SGPT 81 U/L (12-78); BILIRUBIN,DIRECT 0.4 MG/DL (0.0-0.2); BILIRUBIN,TOTAL 1.1 MG/DL (0.2-1.0); BLOOD UREA NITROGEN 23 MG/DL (7-18); CALCIUM LEVEL 8.8 MG/DL (8.8-10.2); CARBON DIOXIDE LEVEL 33 MEQ/L (21-32); CHLORIDE LEVEL 100 MEQ/L (98-107); CREATININE FOR GFR 1.06 MG/DL (0.70-1.30); FERRITIN 1145 NG/ML (26-388); GLOMERULAR FILTRATION RATE > 60.0 (>49); GLUCOSE, FASTING 118 MG/DL (70-100); LDH LACTATE DEHYDROGENASE 974 U/L (87-241); MAGNESIUM LEVEL 2.5 MG/DL (1.8-2.4); NT-PRO BNP 331 PG/ML (<125); PHOSPHORUS LEVEL 3.6 MG/DL (2.5-4.9); POTASSIUM SERUM 4.7 MEQ/L (3.5-5.1); SODIUM LEVEL 139 MEQ/L (136-145); TOTAL PROTEIN 6.6 GM/DL (6.4-8.2)
[2021-09-06] MEDS: HEPARIN SOD (PORCINE) 5000UNITS/ML 1ML VIAL/SYRINGE SQ SCH ×3 (06:12→22:44)
[2021-09-06] MEDS: HumaLOG INSULIN (NovoLOG) PER UNIT SC SCH ×4 (07:52→21:00)
[2021-09-06] MEDS: lisinopriL 40 MG TAB PO SCH (09:00)
[2021-09-06] MEDS: BARICITINIB 2MG TABLET (OLUMIANT) FOR EUA PO SCH (09:00)
[2021-09-06] MEDS: METOPROLOL TART 50 MG TAB PO SCH ×2 (09:01→21:10)
[2021-09-06] MEDS: LEVEMIR (INSULIN DETEMIR) 1 UNITS/0.01ML SC SCH (09:02)
[2021-09-06] MEDS: dexameTHASONE 4 MG/ML 1ML VIAL (J1100 PER 1MG) IV SCH (09:03)
[2021-09-06] MEDS: LIDOCAINE 5% (LIDODERM) PATCH TD SCH (13:46)
[2021-09-06] MEDS: SODIUM CHLORIDE NASAL 0.65% SPRAY BTL (OCEAN) PRN (17:07)
[2021-09-06] MEDS: **NOTE PATIENT COMMENT** MISC XX SCH (21:11)
[2021-09-07] VITALS (16 sets, daily range): BP systolic 129–160; BP diastolic 55–99; O2SAT 90
[2021-09-07] MEDS: IPRATROPIUM 0.5MG/ALBUTEROL 2.5MG INH SOL UD 3ML (DUONEB) NEB SCH ×5 (01:15→19:25)
[2021-09-07 05:43] LABS: BASO % 0.1 % (0.0-1.0); EOS % 0.1 % (0.0-3.0); HEMATOCRIT 44.1 % (42.0-52.0); HEMOGLOBIN 14.4 g/dl (13.5-17.5); LYMPH # 0.7 10^3/uL (1.5-5.0); LYMPH % 4.4 % (24.0-44.0); MEAN CORPUSCULAR HEMOGLOBIN 28.2 pg (27.0-33.0); MEAN CORPUSCULAR HGB CONC 32.7 g/dl (32.0-36.5); MEAN CORPUSCULAR VOLUME 86.5 fl (80.0-96.0); MONO # 0.6 10^3/uL (0.0-0.8); MONO % 3.9 % (2.0-8.0); NEUTROPHILS # 13.4 10^3/uL (1.5-8.5); NEUTROPHILS % 90.5 % (36.0-66.0); PLATELET COUNT, AUTOMATED 339 10^3/uL (150-450); WHITE BLOOD COUNT 14.8 10^3/uL (4.0-10.0)
[2021-09-07] MEDS: HEPARIN SOD (PORCINE) 5000UNITS/ML 1ML VIAL/SYRINGE SQ SCH ×3 (06:05→21:43)
[2021-09-07 06:08] LABS: BLOOD UREA NITROGEN 22 MG/DL (7-18); CALCIUM LEVEL 8.8 MG/DL (8.8-10.2); CARBON DIOXIDE LEVEL 31 MEQ/L (21-32); CHLORIDE LEVEL 102 MEQ/L (98-107); CREATININE FOR GFR 0.99 MG/DL (0.70-1.30); GLOMERULAR FILTRATION RATE > 60.0 (>49); GLUCOSE, FASTING 141 MG/DL (70-100); MAGNESIUM LEVEL 2.5 MG/DL (1.8-2.4); PHOSPHORUS LEVEL 4.3 MG/DL (2.5-4.9); POTASSIUM SERUM 4.9 MEQ/L (3.5-5.1); SODIUM LEVEL 139 MEQ/L (136-145)
[2021-09-07] MEDS: LIDOCAINE 5% (LIDODERM) PATCH TD SCH (09:00)
[2021-09-07] MEDS: dexameTHASONE 4 MG/ML 1ML VIAL (J1100 PER 1MG) IV SCH (09:32)
[2021-09-07] MEDS: LEVEMIR (INSULIN DETEMIR) 1 UNITS/0.01ML SC SCH (09:32)
[2021-09-07] MEDS: HumaLOG INSULIN (NovoLOG) PER UNIT SC SCH ×4 (09:33→20:36)
[2021-09-07] MEDS: lisinopriL 40 MG TAB PO SCH (09:38)
[2021-09-07] MEDS: BARICITINIB 2MG TABLET (OLUMIANT) FOR EUA PO SCH (09:38)
[2021-09-07] MEDS: METOPROLOL TART 50 MG TAB PO SCH ×2 (09:39→21:00)
[2021-09-07] MEDS: **NOTE PATIENT COMMENT** MISC XX SCH (20:37)
[2021-09-08] VITALS (74 sets, daily range): BP systolic 55–198; BP diastolic 34–116
[2021-09-08] MEDS: HumaLOG INSULIN (NovoLOG) PER UNIT SC SCH ×5 (00:07→23:40)
[2021-09-08] MEDS: IPRATROPIUM 0.5MG/ALBUTEROL 2.5MG INH SOL UD 3ML (DUONEB) NEB SCH ×6 (00:07→19:28)
[2021-09-08] MEDS: HEPARIN SOD (PORCINE) 5000UNITS/ML 1ML VIAL/SYRINGE SQ SCH ×3 (05:48→20:49)
[2021-09-08] MEDS: dexameTHASONE 4 MG/ML 1ML VIAL (J1100 PER 1MG) IV SCH ×2 (08:35→20:49)
[2021-09-08] MEDS: BARICITINIB 2MG TABLET (OLUMIANT) FOR EUA PO SCH (08:35)
[2021-09-08] MEDS: lisinopriL 40 MG TAB PO SCH (08:35)
[2021-09-08] MEDS: LEVEMIR (INSULIN DETEMIR) 1 UNITS/0.01ML SC SCH (08:36)
[2021-09-08] MEDS: METOPROLOL TART 50 MG TAB PO SCH (08:36)
[2021-09-08] MEDS: LIDOCAINE 5% (LIDODERM) PATCH TD SCH ×2 (08:36→21:36)
[2021-09-08] MEDS: propofoL 1,000 MG in IV 1 EA IV SCH ×7 (08:53→23:42)
[2021-09-08] MEDS ORDERED: PROPOFOL 1,000 MG/100 ML VIAL As Ordered ONE ×3 (08:53→13:01)
[2021-09-08] MEDS ORDERED: MIDAZOLAM INJ 2MG/2ML VIAL (J2250 PER 1MG) As Ordered ONE (09:09)
[2021-09-08] MEDS ORDERED: VECURONIUM BROMIDE 10MG VIAL As Ordered ONE (09:10)
[2021-09-08] MEDS ORDERED: ROCURONIUM BROMIDE 50 MG/5 ML VIAL As Ordered ONE (09:26)
[2021-09-08] MEDS ORDERED: ROCURONIUM BROMIDE 50 MG/5 ML VIAL IV SCH (09:30)
[2021-09-08 09:37] LABS: ABG BASE EXCESS 1.1 (-2.0-2.0); ABG O2 SATURATION 58.8 % (95.0-99.0); ABG STANDARD HCO3 24.5 MEQ/L (22.0-26.0); ABG TOTAL CO2 32.1 MEQ/L (23.0-31.0); ABG pH (ARTERIAL) 7.268 UNITS (7.350-7.450)
[2021-09-08] MEDS ORDERED: NOREPINEPHRINE 4 MG/4 ML AMP As Ordered ONE (09:39)
[2021-09-08 09:44] LABS: ABG PARTIAL PRESSURE CO2 67.2 mmHg (35.0-45.0); ABG PARTIAL PRESSURE O2 34.6 mmHg (75.0-100.0)
[2021-09-08] MEDS ORDERED: D5W IV SCH (10:00)
[2021-09-08] MEDS ORDERED: ROCURONIUM BROMIDE IV SCH (10:00)
[2021-09-08] MEDS ORDERED: NS 500 ML IV ONE ×2 (10:00→10:05)
[2021-09-08 10:22] LABS: ABG BASE EXCESS 1.1 (-2.0-2.0); ABG HCO3 26.8 MEQ/L (22.0-26.0); ABG O2 SATURATION 70.2 % (95.0-99.0); ABG PARTIAL PRESSURE CO2 46.7 mmHg (35.0-45.0); ABG STANDARD HCO3 24.7 MEQ/L (22.0-26.0); ABG TOTAL CO2 28.3 MEQ/L (23.0-31.0); ABG pH (ARTERIAL) 7.377 UNITS (7.350-7.450)
[2021-09-08 10:25] LABS: ABG PARTIAL PRESSURE O2 36.7 mmHg (75.0-100.0)
[2021-09-08] MEDS ORDERED: fentaNYL 100 MCG/2 ML INJECTION IV PRN (10:35)
[2021-09-08] MEDS: NOREPINEPHRINE BITARTRATE 8 MG in D5W 492 ML IV SCH ×2 (10:50→20:35)
[2021-09-08 11:03] LABS: ABG BASE EXCESS 0.9 (-2.0-2.0); ABG HCO3 24.8 MEQ/L (22.0-26.0); ABG PARTIAL PRESSURE CO2 37.3 mmHg (35.0-45.0); ABG PARTIAL PRESSURE O2 92.2 mmHg (75.0-100.0); ABG STANDARD HCO3 25.2 MEQ/L (22.0-26.0); ABG TOTAL CO2 25.9 MEQ/L (23.0-31.0)
[2021-09-08] MEDS: fentaNYL CITRATE 1,000 MCG in NS 80 ML IV SCH (15:00)
[2021-09-08 15:03] LABS: ABG BASE EXCESS -1.1 (-2.0-2.0); ABG HCO3 23.2 MEQ/L (22.0-26.0); ABG O2 SATURATION 88.2 % (95.0-99.0); ABG PARTIAL PRESSURE CO2 37.5 mmHg (35.0-45.0); ABG PARTIAL PRESSURE O2 52.5 mmHg (75.0-100.0); ABG STANDARD HCO3 23.3 MEQ/L (22.0-26.0); ABG TOTAL CO2 24.3 MEQ/L (23.0-31.0); ABG pH (ARTERIAL) 7.409 UNITS (7.350-7.450)
[2021-09-08 18:25] LABS: ABG BASE EXCESS 0.3 (-2.0-2.0); ABG HCO3 24.7 MEQ/L (22.0-26.0); ABG O2 SATURATION 93.9 % (95.0-99.0); ABG PARTIAL PRESSURE CO2 39.1 mmHg (35.0-45.0); ABG PARTIAL PRESSURE O2 67.7 mmHg (75.0-100.0); ABG STANDARD HCO3 24.7 MEQ/L (22.0-26.0); ABG TOTAL CO2 25.9 MEQ/L (23.0-31.0); ABG pH (ARTERIAL) 7.418 UNITS (7.350-7.450)
[2021-09-08] MEDS: PIPERACILLIN/TAZOBACTAM SOD 3.375 GM in D5W MINI-BAG PLUS 50 ML IV SCH ×2 (18:28→23:41)
[2021-09-08] MEDS: CISATRACURIUM 200 MG in NS 480 ML IV SCH (18:30)
[2021-09-08] MEDS: **NOTE PATIENT COMMENT** MISC XX SCH (20:05)
[2021-09-08] MEDS: VASOPRESSIN INJ 20 UNITS in NS 499 ML IV SCH (22:00)
[2021-09-09] VITALS (115 sets, daily range): BP systolic 83–252; BP diastolic 48–169
[2021-09-09] MEDS: IPRATROPIUM 0.5MG/ALBUTEROL 2.5MG INH SOL UD 3ML (DUONEB) NEB SCH ×7 (00:09→23:34)
[2021-09-09] MEDS: propofoL 1,000 MG in IV 1 EA IV SCH ×13 (01:30→23:17)
[2021-09-09 04:47] LABS: ABG BASE EXCESS -4.4 (-2.0-2.0); ABG HCO3 21.2 MEQ/L (22.0-26.0); ABG O2 SATURATION 94.4 % (95.0-99.0); ABG PARTIAL PRESSURE CO2 40.9 mmHg (35.0-45.0); ABG PARTIAL PRESSURE O2 80.2 mmHg (75.0-100.0); ABG STANDARD HCO3 20.8 MEQ/L (22.0-26.0); ABG TOTAL CO2 22.5 MEQ/L (23.0-31.0); ABG pH (ARTERIAL) 7.333 UNITS (7.350-7.450)
[2021-09-09 04:52] LABS: BASO % 0.1 % (0.0-1.0); EOS % 0.1 % (0.0-3.0); HEMATOCRIT 38.3 % (42.0-52.0); HEMOGLOBIN 12.6 g/dl (13.5-17.5); LYMPH # 0.6 10^3/uL (1.5-5.0); LYMPH % 4.3 % (24.0-44.0); MEAN CORPUSCULAR HEMOGLOBIN 29.2 pg (27.0-33.0); MEAN CORPUSCULAR HGB CONC 32.9 g/dl (32.0-36.5); MEAN CORPUSCULAR VOLUME 88.7 fl (80.0-96.0); MONO # 0.4 10^3/uL (0.0-0.8); MONO % 2.6 % (2.0-8.0); NEUTROPHILS # 12.6 10^3/uL (1.5-8.5); PLATELET COUNT, AUTOMATED 206 10^3/uL (150-450); RED BLOOD COUNT 4.32 10^6/uL (4.30-6.10); WHITE BLOOD COUNT 13.8 10^3/uL (4.0-10.0)
[2021-09-09 05:33] LABS: ALBUMIN 1.9 GM/DL (3.2-5.2); BILIRUBIN,TOTAL 3.4 MG/DL (0.2-1.0); CALCIUM LEVEL 7.3 MG/DL (8.8-10.2); CREATININE FOR GFR 2.57 MG/DL (0.70-1.30); GLOMERULAR FILTRATION RATE 27.1 (>49); PHOSPHORUS LEVEL 4.9 MG/DL (2.5-4.9); POTASSIUM SERUM 5.5 MEQ/L (3.5-5.1); TOTAL PROTEIN 5.4 GM/DL (6.4-8.2)
[2021-09-09] MEDS: HumaLOG INSULIN (NovoLOG) PER UNIT SC SCH ×2 (06:21→12:34)
[2021-09-09] MEDS: HEPARIN SOD (PORCINE) 5000UNITS/ML 1ML VIAL/SYRINGE SQ SCH ×3 (06:21→22:22)
[2021-09-09] MEDS: PIPERACILLIN/TAZOBACTAM SOD 3.375 GM in D5W MINI-BAG PLUS 50 ML IV SCH (06:22)
[2021-09-09] MEDS ORDERED: NS 500 ML IV ONE (08:05)
[2021-09-09] MEDS: LEVEMIR (INSULIN DETEMIR) 1 UNITS/0.01ML SC SCH (08:26)
[2021-09-09] MEDS: dexameTHASONE 4 MG/ML 1ML VIAL (J1100 PER 1MG) IV SCH ×2 (08:27→20:44)
[2021-09-09] MEDS: BARICITINIB 2MG TABLET (OLUMIANT) FOR EUA PO SCH (08:27)
[2021-09-09] MEDS: NOREPINEPHRINE BITARTRATE 8 MG in D5W 492 ML IV SCH ×3 (08:29→19:43)
[2021-09-09] MEDS: CISATRACURIUM 200 MG in NS 480 ML IV SCH ×2 (08:29→21:04)
[2021-09-09] MEDS: LIDOCAINE 5% (LIDODERM) PATCH TD SCH (08:29)
[2021-09-09] MEDS: MIDAZOLAM INJ 2MG/2ML VIAL (J2250 PER 1MG) IV PRN ×2 (10:11→14:30)
[2021-09-09] MEDS ORDERED: REFRIGERATOR IV KEYS XX PRN (10:45)
[2021-09-09] MEDS ORDERED: VASOPRESSIN INJ 20 UNITS/ML VIAL As Ordered ONE (11:13)
[2021-09-09] MEDS ORDERED: NS 1,000 ML IV SCH (11:40)
[2021-09-09] MEDS: VASOPRESSIN INJ 20 UNITS in NS 499 ML IV SCH ×2 (12:00→20:25)
[2021-09-09] MEDS: PIPERACILLIN/TAZOBACTAM SOD 2.25 GM in D5W MINI-BAG PLUS 50 ML IV SCH ×2 (12:13→18:26)
[2021-09-09] MEDS: MIDAZOLAM HCL 100 MG in D5W 80 ML IV SCH (12:14)
[2021-09-09 13:08] LABS: ABG BASE EXCESS -4.2 (-2.0-2.0); ABG HCO3 23.6 MEQ/L (22.0-26.0); ABG O2 SATURATION 84.9 % (95.0-99.0); ABG PARTIAL PRESSURE CO2 55.3 mmHg (35.0-45.0); ABG PARTIAL PRESSURE O2 55.8 mmHg (75.0-100.0); ABG STANDARD HCO3 20.7 MEQ/L (22.0-26.0); ABG TOTAL CO2 25.3 MEQ/L (23.0-31.0); ABG pH (ARTERIAL) 7.248 UNITS (7.350-7.450)
[2021-09-09] MEDS ORDERED: EPINEPHrine INJ 1 MG/ML 1ML AMP As Ordered ONE (13:57)
[2021-09-09] MEDS ORDERED: EPINEPHRINE HCL IV SCH (14:30)
[2021-09-09] MEDS ORDERED: D5W IV SCH (14:30)
[2021-09-09] MEDS: PANTOPRAZOLE 40MG VIAL (C9113 PER 1) IV SCH (14:51)
[2021-09-09] MEDS: INSULIN REGULAR IN 0.9 % NACL 100 UNIT in IV 1 EA IV SCH ×4 (14:52→22:52)
[2021-09-09] MEDS ORDERED: SODIUM BICARBONATE 8.4% INJ 50 ML SYRINGE IV STA ×3 (15:47→16:49)
[2021-09-09] MEDS ORDERED: EPINEPHrine INJ 1 MG/ML 1ML AMP IV ONE (15:50)
[2021-09-09] MEDS ORDERED: NS 1,000 ML IV ONE (16:00)
[2021-09-09 16:10] LABS: ABG BASE EXCESS -5.6 (-2.0-2.0); ABG HCO3 24.1 MEQ/L (22.0-26.0); ABG O2 SATURATION 70.4 % (95.0-99.0); ABG PARTIAL PRESSURE CO2 67.6 mmHg (35.0-45.0); ABG PARTIAL PRESSURE O2 42.2 mmHg (75.0-100.0); ABG STANDARD HCO3 19.3 MEQ/L (22.0-26.0); ABG TOTAL CO2 26.2 MEQ/L (23.0-31.0)
[2021-09-09] MEDS: INSULIN IV RATE CHANGE DOCUMENTATION ML/HR XX SCH ×2 (16:19→18:23)
[2021-09-09] MEDS: SODIUM BICARBONATE 150 MEQ in STERILE WATER LITER BAG 1,000 ML IV SCH (16:46)
[2021-09-09] MEDS: fentaNYL CITRATE 1,000 MCG in NS 80 ML IV SCH (16:47)
[2021-09-09 17:52] LABS: ALBUMIN 1.5 GM/DL (3.2-5.2); BILIRUBIN,TOTAL 2.6 MG/DL (0.2-1.0); CALCIUM LEVEL 6.1 MG/DL (8.8-10.2); CREATININE FOR GFR 3.12 MG/DL (0.70-1.30); GLOMERULAR FILTRATION RATE 21.7 (>49); POTASSIUM SERUM 4.6 MEQ/L (3.5-5.1); TOTAL PROTEIN 5.1 GM/DL (6.4-8.2)
[2021-09-09] MEDS: **NOTE PATIENT COMMENT** MISC XX SCH (20:44)
[2021-09-09] MEDS ORDERED: CALCIUM GLUCONATE 1,000 MG in D5W MINI-BAG PLUS 100 ML IV ONE (21:00)
[2021-09-09] MEDS ORDERED: LEVEMIR (INSULIN DETEMIR) 1 UNITS/0.01ML SC SCH (21:00)
[2021-09-10] VITALS (96 sets, daily range): BP systolic 94–169; BP diastolic 50–76
[2021-09-10] MEDS: PIPERACILLIN/TAZOBACTAM SOD 2.25 GM in D5W MINI-BAG PLUS 50 ML IV SCH ×5 (00:57→23:47)
[2021-09-10] MEDS: propofoL 1,000 MG in IV 1 EA IV SCH ×13 (01:13→23:47)
[2021-09-10] MEDS: SODIUM BICARBONATE 150 MEQ in STERILE WATER LITER BAG 1,000 ML IV SCH ×3 (01:16→20:53)
[2021-09-10] MEDS: MIDAZOLAM HCL 100 MG in D5W 80 ML IV SCH ×2 (01:54→18:50)
[2021-09-10] MEDS: NOREPINEPHRINE BITARTRATE 8 MG in D5W 492 ML IV SCH ×3 (02:27→17:59)
[2021-09-10] MEDS: INSULIN REGULAR IN 0.9 % NACL 100 UNIT in IV 1 EA IV SCH ×8 (03:22→15:15)
[2021-09-10] MEDS: IPRATROPIUM 0.5MG/ALBUTEROL 2.5MG INH SOL UD 3ML (DUONEB) NEB SCH ×6 (04:14→23:26)
[2021-09-10 04:32] LABS: ABG BASE EXCESS -7.6 (-2.0-2.0); ABG HCO3 20.8 MEQ/L (22.0-26.0); ABG O2 SATURATION 76.4 % (95.0-99.0); ABG PARTIAL PRESSURE CO2 54.8 mmHg (35.0-45.0); ABG PARTIAL PRESSURE O2 46.7 mmHg (75.0-100.0); ABG STANDARD HCO3 17.9 MEQ/L (22.0-26.0); ABG TOTAL CO2 22.5 MEQ/L (23.0-31.0); ABG pH (ARTERIAL) 7.198 UNITS (7.350-7.450)
[2021-09-10] MEDS: VASOPRESSIN INJ 20 UNITS in NS 499 ML IV SCH ×3 (04:38→20:49)
[2021-09-10 04:41] LABS: HEMATOCRIT 38.3 % (42.0-52.0); HEMOGLOBIN 12.3 g/dl (13.5-17.5); MEAN CORPUSCULAR HEMOGLOBIN 28.6 pg (27.0-33.0); MEAN CORPUSCULAR HGB CONC 32.1 g/dl (32.0-36.5); MEAN CORPUSCULAR VOLUME 89.1 fl (80.0-96.0); PLATELET COUNT, AUTOMATED 205 10^3/uL (150-450); WHITE BLOOD COUNT 18.2 10^3/uL (4.0-10.0)
[2021-09-10 05:14] LABS: LYMPHOCYTES 8 % (16-44); MONOCYTES 2 % (0-5); NEUTROPHILS 89 % (28-66); PLATELET ESTIMATE NORMAL (NORMAL)
[2021-09-10 05:15] LABS: BURR CELLS 1+; TOXIC VACUOLATION 1+
[2021-09-10] MEDS: HEPARIN SOD (PORCINE) 5000UNITS/ML 1ML VIAL/SYRINGE SQ SCH ×3 (05:21→21:54)
[2021-09-10 05:56] LABS: ALBUMIN 1.7 GM/DL (3.2-5.2); BILIRUBIN,TOTAL 2.8 MG/DL (0.2-1.0); CALCIUM LEVEL 6.4 MG/DL (8.8-10.2); CREATININE FOR GFR 4.05 MG/DL (0.70-1.30); PHOSPHORUS LEVEL 8.5 MG/DL (2.5-4.9); TOTAL PROTEIN 5.1 GM/DL (6.4-8.2)
[2021-09-10] MEDS: INSULIN IV RATE CHANGE DOCUMENTATION ML/HR XX SCH ×3 (08:00→22:21)
[2021-09-10] MEDS: BARICITINIB 2MG TABLET (OLUMIANT) FOR EUA PO SCH (08:07)
[2021-09-10] MEDS: dexameTHASONE 4 MG/ML 1ML VIAL (J1100 PER 1MG) IV SCH ×2 (08:07→21:52)
[2021-09-10] MEDS: PANTOPRAZOLE 40MG VIAL (C9113 PER 1) IV SCH (08:07)
[2021-09-10] MEDS: LIDOCAINE 5% (LIDODERM) PATCH TD SCH (08:08)
[2021-09-10] MEDS: CISATRACURIUM 200 MG in NS 480 ML IV SCH (08:53)
[2021-09-10] MEDS ORDERED: NS 500 ML IV ONE (09:00)
[2021-09-10] MEDS ORDERED: CISATRACURIUM 10MG/ML 20 ML VIAL IV PRN (10:45)
[2021-09-10] MEDS: CALCIUM ACETATE 667MG GELCAP PO SCH ×2 (10:55→21:52)
[2021-09-10 11:49] LABS: ABG BASE EXCESS -2.6 (-2.0-2.0); ABG HCO3 24.4 MEQ/L (22.0-26.0); ABG O2 SATURATION 98.4 % (95.0-99.0); ABG PARTIAL PRESSURE CO2 51.6 mmHg (35.0-45.0); ABG PARTIAL PRESSURE O2 135.6 mmHg (75.0-100.0); ABG STANDARD HCO3 22.3 MEQ/L (22.0-26.0); ABG pH (ARTERIAL) 7.293 UNITS (7.350-7.450)
[2021-09-10 12:02] LABS: INR 1.26; PROTHROMBIN TIME 16.3 SECONDS (12.7-14.5)
[2021-09-10 12:17] LABS: ABG BASE EXCESS -2.4 (-2.0-2.0); ABG HCO3 24.8 MEQ/L (22.0-26.0); ABG PARTIAL PRESSURE O2 83.1 mmHg (75.0-100.0); ABG STANDARD HCO3 22.4 MEQ/L (22.0-26.0); ABG TOTAL CO2 26.4 MEQ/L (23.0-31.0); ABG pH (ARTERIAL) 7.288 UNITS (7.350-7.450)
[2021-09-10 13:00] LABS: CALCIUM LEVEL 6.4 MG/DL (8.8-10.2); CREATININE FOR GFR 4.63 MG/DL (0.70-1.30); GLOMERULAR FILTRATION RATE 13.7 (>49); POTASSIUM SERUM 5.3 MEQ/L (3.5-5.1)
[2021-09-10 13:01] LABS: ALBUMIN 1.8 GM/DL (3.2-5.2); PHOSPHORUS LEVEL 8.4 MG/DL (2.5-4.9); TOTAL PROTEIN 5.9 GM/DL (6.4-8.2)
[2021-09-10] MEDS ORDERED: SODIUM CHLORIDE 0.9% INJ 10 ML SYR IV PRN (14:35)
[2021-09-10] MEDS: fentaNYL CITRATE 1,000 MCG in NS 80 ML IV SCH (14:44)
[2021-09-10 18:20] LABS: ABG BASE EXCESS -4.7 (-2.0-2.0); ABG HCO3 24.8 MEQ/L (22.0-26.0); ABG O2 SATURATION 74.1 % (95.0-99.0); ABG STANDARD HCO3 20.1 MEQ/L (22.0-26.0); ABG TOTAL CO2 26.8 MEQ/L (23.0-31.0)
[2021-09-10 18:21] LABS: ABG PARTIAL PRESSURE CO2 66.8 mmHg (35.0-45.0); ABG pH (ARTERIAL) 7.187 UNITS (7.350-7.450)
[2021-09-10 18:22] LABS: ABG PARTIAL PRESSURE O2 44.9 mmHg (75.0-100.0)
[2021-09-10] MEDS ORDERED: SODIUM BICARBONATE 8.4% INJ 50 ML SYRINGE As Ordered ONE (18:33)
[2021-09-10] MEDS ORDERED: SODIUM BICARBONATE 8.4% INJ 50 ML SYRINGE IV STA (18:34)
[2021-09-10 19:03] LABS: ALBUMIN 1.7 GM/DL (3.2-5.2); BILIRUBIN,TOTAL 3.3 MG/DL (0.2-1.0); CALCIUM LEVEL 6.6 MG/DL (8.8-10.2); CREATININE FOR GFR 4.82 MG/DL (0.70-1.30); GLOMERULAR FILTRATION RATE 13.1 (>49); POTASSIUM SERUM 5.1 MEQ/L (3.5-5.1); TOTAL PROTEIN 5.6 GM/DL (6.4-8.2)
[2021-09-10 21:01] LABS: ABG BASE EXCESS -2.6 (-2.0-2.0); ABG HCO3 26.7 MEQ/L (22.0-26.0); ABG O2 SATURATION 74.5 % (95.0-99.0); ABG PARTIAL PRESSURE CO2 68.3 mmHg (35.0-45.0); ABG PARTIAL PRESSURE O2 43.5 mmHg (75.0-100.0); ABG STANDARD HCO3 21.8 MEQ/L (22.0-26.0); ABG TOTAL CO2 28.8 MEQ/L (23.0-31.0)
[2021-09-10] MEDS: HEPARIN 100 UNIT/ML *20ML* SYRINGE CRRT INFUSION CRRT SCH (21:48)
[2021-09-10] MEDS: **NOTE PATIENT COMMENT** MISC XX SCH (21:54)
[2021-09-11] VITALS (84 sets, daily range): BP systolic 53–159; BP diastolic 32–80
[2021-09-11 00:29] LABS: ABG BASE EXCESS -4.4 (-2.0-2.0); ABG HCO3 24.9 MEQ/L (22.0-26.0); ABG O2 SATURATION 76.2 % (95.0-99.0); ABG STANDARD HCO3 20.4 MEQ/L (22.0-26.0)
[2021-09-11] MEDS: propofoL 1,000 MG in IV 1 EA IV SCH ×9 (00:29→15:24)
[2021-09-11 00:31] LABS: ABG PARTIAL PRESSURE CO2 66.6 mmHg (35.0-45.0); ABG pH (ARTERIAL) 7.191 UNITS (7.350-7.450)
[2021-09-11] MEDS: NOREPINEPHRINE BITARTRATE 8 MG in D5W 492 ML IV SCH ×3 (00:31→11:08)
[2021-09-11 00:32] LABS: ABG PARTIAL PRESSURE O2 46.2 mmHg (75.0-100.0)
[2021-09-11 00:33] LABS: INR 1.2; PROTHROMBIN TIME 15.7 SECONDS (12.7-14.5)
[2021-09-11 01:06] LABS: CK-MB VALUE MASS 39.4 NG/ML (<3.6); MB/CK RELATIVE INDEX 5.02 (< OR =4)
[2021-09-11] MEDS: INSULIN REGULAR IN 0.9 % NACL 100 UNIT in IV 1 EA IV SCH ×2 (02:37)
[2021-09-11] MEDS: HEPARIN 100 UNIT/ML *20ML* SYRINGE CRRT INFUSION CRRT SCH ×2 (03:33→09:18)
[2021-09-11] MEDS: IPRATROPIUM 0.5MG/ALBUTEROL 2.5MG INH SOL UD 3ML (DUONEB) NEB SCH ×4 (04:15→14:57)
[2021-09-11] MEDS: VASOPRESSIN INJ 20 UNITS in NS 499 ML IV SCH ×2 (04:53→12:11)
[2021-09-11 05:05] LABS: HEMATOCRIT 39.5 % (42.0-52.0); HEMOGLOBIN 12.8 g/dl (13.5-17.5); MEAN CORPUSCULAR HGB CONC 32.4 g/dl (32.0-36.5); MEAN CORPUSCULAR VOLUME 89.4 fl (80.0-96.0); PLATELET COUNT, AUTOMATED 196 10^3/uL (150-450); RED BLOOD COUNT 4.42 10^6/uL (4.30-6.10); WHITE BLOOD COUNT 22.3 10^3/uL (4.0-10.0)
[2021-09-11] MEDS: HEPARIN SOD (PORCINE) 5000UNITS/ML 1ML VIAL/SYRINGE SQ SCH (05:19)
[2021-09-11] MEDS: PIPERACILLIN/TAZOBACTAM SOD 2.25 GM in D5W MINI-BAG PLUS 50 ML IV SCH ×2 (05:19→12:11)
[2021-09-11] MEDS: SODIUM BICARBONATE 150 MEQ in STERILE WATER LITER BAG 1,000 ML IV SCH (05:48)
[2021-09-11 06:13] LABS: CREATININE FOR GFR 3.3 MG/DL (0.70-1.30); GLOMERULAR FILTRATION RATE 20.3 (>49); PHOSPHORUS LEVEL 6.7 MG/DL (2.5-4.9); POTASSIUM SERUM 4.8 MEQ/L (3.5-5.1)
[2021-09-11 06:14] LABS: ALBUMIN 1.7 GM/DL (3.2-5.2); BILIRUBIN,TOTAL 3.4 MG/DL (0.2-1.0); TOTAL PROTEIN 5.3 GM/DL (6.4-8.2)
[2021-09-11 06:31] LABS: ABG BASE EXCESS -3.2 (-2.0-2.0); ABG HCO3 26.1 MEQ/L (22.0-26.0); ABG O2 SATURATION 76.9 % (95.0-99.0); ABG PARTIAL PRESSURE CO2 66.8 mmHg (35.0-45.0); ABG STANDARD HCO3 21.4 MEQ/L (22.0-26.0); ABG TOTAL CO2 28.1 MEQ/L (23.0-31.0)
[2021-09-11 06:34] LABS: ABG pH (ARTERIAL) 7.209 UNITS (7.350-7.450)
[2021-09-11 07:09] LABS: LYMPHOCYTES 2 % (16-44); METAMYELOCYTES 1 % (0-0); MONOCYTES 4 % (0-5); NEUTROPHILS 92 % (28-66)
[2021-09-11 07:10] LABS: PLATELET CLUMPS SMALL AMT; PLATELET ESTIMATE NORMAL (NORMAL)
[2021-09-11] MEDS: BARICITINIB 2MG TABLET (OLUMIANT) FOR EUA PO SCH (08:00)
[2021-09-11] MEDS: PANTOPRAZOLE 40MG VIAL (C9113 PER 1) IV SCH (08:00)
[2021-09-11] MEDS: LIDOCAINE 5% (LIDODERM) PATCH TD SCH (08:00)
[2021-09-11] MEDS: CALCIUM ACETATE 667MG GELCAP PO SCH (08:00)
[2021-09-11] MEDS: dexameTHASONE 4 MG/ML 1ML VIAL (J1100 PER 1MG) IV SCH (08:01)
[2021-09-11] MEDS ORDERED: VANCOMYCIN HCL 1,000 MG, VIAL MATE ADAPTER 1 EACH in NS 250 ML IV SCH (09:00)
[2021-09-11] MEDS ORDERED: VANCOMYCIN HCL 1,000 MG, VIAL MATE ADAPTER 1 EACH in NS 250 ML IV ONE (10:00)
[2021-09-11] MEDS: INSULIN IV RATE CHANGE DOCUMENTATION ML/HR XX SCH ×2 (10:11→12:12)
[2021-09-11] MEDS: MIDAZOLAM HCL 100 MG in D5W 80 ML IV SCH (11:05)
[2021-09-11 11:25] LABS: ABG BASE EXCESS -5.1 (-2.0-2.0); ABG HCO3 24.4 MEQ/L (22.0-26.0); ABG O2 SATURATION 69.6 % (95.0-99.0); ABG STANDARD HCO3 19.7 MEQ/L (22.0-26.0); ABG TOTAL CO2 26.5 MEQ/L (23.0-31.0)
[2021-09-11 11:29] LABS: ABG PARTIAL PRESSURE CO2 67.9 mmHg (35.0-45.0); ABG pH (ARTERIAL) 7.174 UNITS (7.350-7.450)
[2021-09-11 11:30] LABS: ABG PARTIAL PRESSURE O2 43.2 mmHg (75.0-100.0)
[2021-09-11] MEDS ORDERED: CALCIUM GLUCONATE 1,000MG/10ML VIAL (100MG/ML) (J0610) As Ordered ONE (16:56)
[2021-09-11] MEDS ORDERED: MAGNESIUM SULFATE 1GM/100ML D5W BAG (10MG/ML) As Ordered ONE (16:56)
[2021-09-11] MEDS ORDERED: MAG SULF 1GM/100ML (MAG RUN) 1 GM in IV 1 EA IV ONE (17:15)
[2021-09-11] MEDS ORDERED: CALCIUM GLUCONATE 1,000 MG in D5W MINI-BAG PLUS 100 ML IV ONE (17:15)
[2021-09-11] MEDS ORDERED: ENOXAPARIN 120MG/0.8ML SYRINGE (J1650 PER 10MG) SC SCH (18:00)
[2021-09-11] MEDS ORDERED: propofoL 200 MG/20 ML VIAL ONE (20:17)
[2021-09-11] MEDS ORDERED: ROCURONIUM BROMIDE 50 MG/5 ML VIAL ONE (20:17)
[2021-09-11] MEDS ORDERED: SUCCINYLCHOLINE 100 MG/5 ML SYRINGE (J0330) ONE (20:17)
[2021-09-11] MEDS ORDERED: ETOMIDATE INJ 20MG/10ML VIAL ONE (20:17)
== END 2021-09-11 20:31 | disposition expired | DRG 951 ==
LOC: M ED 11:00 → M ED INP 13:53 → ENRESERV 14:20 → M 4MAIN 15:08 → M ICU 09-02 04:09
PROVIDERS: ADMIT Internal Medicine; ATTEND Internal Medicine Pulmonary Disease
PROC: XW033E5 Introduction of Remdesivir Anti-infective into Peripheral Vein, Percutaneous Approach, New Technology Group 5 (ICD-10-PCS; principal; 2021-08-31)
PROC: 3E0333Z Introduction of Anti-inflammatory into Peripheral Vein, Percutaneous Approach (ICD-10-PCS; 2021-09-01)
PROC: 5A0945Z Assistance with Respiratory Ventilation, 24-96 Consecutive Hours (ICD-10-PCS; 2021-09-02)
PROC: 5A1945Z Respiratory Ventilation, 24-96 Consecutive Hours (ICD-10-PCS; 2021-09-08)
PROC: 06HM33Z Insertion of Infusion Device into Right Femoral Vein, Percutaneous Approach (ICD-10-PCS; 2021-09-08)
PROC: 04HY32Z Insertion of Monitoring Device into Lower Artery, Percutaneous Approach (ICD-10-PCS; 2021-09-08)
PROC: 0BH17EZ Insertion of Endotracheal Airway into Trachea, Via Natural or Artificial Opening (ICD-10-PCS; 2021-09-08)
PROC: 06HN33Z Insertion of Infusion Device into Left Femoral Vein, Percutaneous Approach (ICD-10-PCS; 2021-09-10)
DX: U07.1 COVID-19 (principal); I21.4 Non-ST elevation (NSTEMI) myocardial infarction; J12.82 Pneumonia due to coronavirus disease 2019; J96.01 Acute respiratory failure with hypoxia; R57.0 Cardiogenic shock; K72.00 Acute and subacute hepatic failure without coma; R65.21 Severe sepsis with septic shock; A41.9 Sepsis, unspecified organism; N17.9 Acute kidney failure, unspecified; J15.9 Unspecified bacterial pneumonia; J44.1 Chronic obstructive pulmonary disease with (acute) exacerbation; J44.0 Chronic obstructive pulmonary disease with (acute) lower respiratory infection; E87.2 Acidosis; F20.0 Paranoid schizophrenia; E66.01 Morbid (severe) obesity due to excess calories; Z68.41 Body mass index [BMI] 40.0-44.9, adult; E87.5 Hyperkalemia; E11.65 Type 2 diabetes mellitus with hyperglycemia; E87.1 Hypo-osmolality and hyponatremia; E83.39 Other disorders of phosphorus metabolism; I10 Essential (primary) hypertension; G47.33 Obstructive sleep apnea (adult) (pediatric); M51.37 Other intervertebral disc degeneration, lumbosacral region; Z90.49 Acquired absence of other specified parts of digestive tract; E78.5 Hyperlipidemia, unspecified; F32.9 Major depressive disorder, single episode, unspecified; Z79.82 Long term (current) use of aspirin; Z79.4 Long term (current) use of insulin; Z79.84 Long term (current) use of oral hypoglycemic drugs; Z79.899 Other long term (current) drug therapy; Z91.19 Patient's noncompliance with other medical treatment and regimen; R74.01 Elevation of levels of liver transaminase levels; I46.9 Cardiac arrest, cause unspecified